=== PATIENT | female | born 1955 | race Caucasian/White ===

== ENCOUNTER 2016-02-14 12:31 | Observation (INO) | payer MEDICAID, OTHER ==
[~2016-02-14] VITALS: Ht 154.9 cm; Wt 42.1 kg
[2016-02-14] MEDS: methylPREDNISolone INJ 125 MG/2 ML VIAL (J2930) IV SCH ×2 (09:00→21:08)
[2016-02-14] MEDS ORDERED: IPRATROPIUM 0.5MG/ALBUTEROL 2.5MG INH SOL UD 3ML (DUONEB)(J7620) As Ordered ONE (14:05)
[2016-02-14 14:09] LABS: BASO # 0.1 K/mm3 (0.0-0.2); BASO % 0.6 % (0.0-1.0); EOS % 0.5 % (0.0-3.0); LARGE UNSTAINED CELL # 0.1 K/mm3 (0.0-0.4); LARGE UNSTAINED CELL % 1.3 % (0.0-4.0); LYMPH # 0.7 K/mm3 (1.5-4.5); LYMPH % 7.2 % (24.0-44.0); MEAN CORPUSCULAR HEMOGLOBIN 31.4 pg (27.0-33.0); MEAN CORPUSCULAR HGB CONC 34.2 g/dl (32.0-36.5); MEAN CORPUSCULAR VOLUME 91.8 fl (80.0-96.0); MONO # 0.4 K/mm3 (0.0-0.8); MONO % 4.3 % (0.0-5.0); NEUTROPHILS # 8.7 K/mm3 (1.8-7.7); NEUTROPHILS % 86.1 % (36.0-66.0); PLATELET COUNT, AUTOMATED 384 k/mm3 (150-450); RED CELL DISTRIBUTION WIDTH 12.3 % (11.5-14.5); WHITE BLOOD COUNT 10.1 K/mm3 (4.0-10.0)
[2016-02-14 14:27] LABS: ANION GAP 9 MEQ/L (8-16); BLOOD UREA NITROGEN 5 MG/DL (7-18); CALCIUM LEVEL 9.4 MG/DL (8.8-10.2); CARBON DIOXIDE LEVEL 28 MEQ/L (21-32); CHLORIDE LEVEL 95 MEQ/L (98-107); CREATININE FOR GFR 0.27 MG/DL (0.55-1.02); GLOMERULAR FILTRATION RATE > 60.0 (>45); GLUCOSE, FASTING 101 MG/DL (80-110); SODIUM LEVEL 132 MEQ/L (136-145)
[2016-02-14] MEDS ORDERED: predniSONE 20 MG TAB As Ordered ONE (14:32)
[2016-02-14] MEDS ORDERED: OMEP40CA2 PO (16:32)
[2016-02-14] MEDS ORDERED: MONT10TA2 PO (16:32)
[2016-02-14] MEDS ORDERED: CETI10TA PO (16:32)
[2016-02-14] MEDS ORDERED: ALBU83IN INH (16:32)
[2016-02-14] MEDS ORDERED: LISI10TA4 PO (16:32)
[2016-02-14] MEDS ORDERED: ALBU17IN INH (16:32)
[2016-02-14] MEDS ORDERED: FLUT1SPR2 (16:32)
[2016-02-14] MEDS ORDERED: VENL37.598 PO (16:32)
[2016-02-14] MEDS ORDERED: SYMB80INH INH (16:32)
[2016-02-14] MEDS ORDERED: IBUP800T23 PO (16:32)
[2016-02-14] MEDS ORDERED: ONDANSETRON 4MG/2ML VIAL (J2405) IV PRN (16:45)
[2016-02-14] MEDS ORDERED: IPRATROPIUM 0.5MG/ALBUTEROL 2.5MG INH SOL UD 3ML (DUONEB)(J7620) NEB PRN ×2 (16:45→17:00)
[2016-02-14] MEDS ORDERED: DRIS50002 PO (17:07)
--- NOTE | 2016-02-14 17:26 | REP ---
CHEST, TWO VIEWS: HISTORY: Shortness of breath. COMPARISON: 05/23/2012. The lungs are hyperinflated. An increase in interstitial markings is present in the lungs. The heart is normal in size. The pulmonary vasculature is normal in appearance. The bony structure is intact. IMPRESSION: COPD. Signed by Doug Reza MD 02/14/2016 05:42 P
--- NOTE | 2016-02-14 18:03 | HPE ---
DATE OF ADMISSION: 02/14/2016 Time patient was seen was at 1630 hours PRIMARY CARE PROVIDER: Barbara Echeverria NP CHIEF COMPLAINT: Shortness of breath and cough. HISTORY OF PRESENT ILLNESS: 60-year-old female with a past medical history of hepatitis C, treated per patient, chronic obstructive pulmonary disease (COPD), tobacco abuse, hypertension, presented with shortness of breath and chills and also coughing that started about 3 to 4 weeks ago. Per patient, it has been getting worse. Over the past few days, she is having problem moving around and feeling tired. She also has a productive cough, which was grayish in color. She also admits to some chest pressure. Otherwise, she also smokes for the past 50 years, half of a pack per day. She denies any sick contacts or any recent traveling. Denies measuring any fever; however, she does have a subjective fever and feeling hot. ALLERGIES: She is allergic to BACTRIM, which gives her nausea, vomiting, and rash. HOME MEDICATIONS: Including: - albuterol 2.5 mg one inhalation every four hours as needed - Ventolin two puff inhalation every four hours as needed - Symbicort 8/4.5 mcg two puff inhalation twice a day - cetirizine 10 mg one tablet by mouth at night - fluticasone spray in each naris twice a day - ibuprofen 800 mg one tablet by mouth every 8 hours - lisinopril 10 mg one tablet by mouth at night - Montelukast 10 mg one tablet by mouth daily - omeprazole 40 mg one tablet by mouth daily - venlafaxine 37.5 mg one tablet by mouth daily - vitamin D 50,000 units one by mouth weekly PAST MEDICAL HISTORY: Includes: 1. History of hepatitis C. 2. Chronic obstructive pulmonary disease (COPD). 3. Hypertension. 4. Tobacco abuse. 5. Alcohol abuse. PAST SURGICAL HISTORY: Includes: 1. Tonsillectomy. 2. section. SOCIAL HISTORY: The patient lives at home with a friend in an apartment. Admits to smoking at least 50 years for a half pack per day. Admits to drinking about two to three beers a day. Denies any recreational drug use. FAMILY HISTORY: Admits to diabetes. REVIEW OF SYSTEMS: GENERAL: Denies any recent traveling, sick contacts, or any objective fever. Does admit to subjective fever. HEENT: Denies any change with vision, smell, hearing or taste. Denies any trouble swallowing. Admits to a sore throat. Admits to cough and sputum production. CARDIOVASCULAR: Admits to chest pressure, however, no chest pain. No shoulder ache. No trouble breathing associated with chest pain. PULMONARY: The patient does have COPD and shortness of breath. GASTROINTESTINAL: The patient denies any abdominal pain, nausea, vomiting, diarrhea, constipation or any problem with urination. Denies any blood in the stool. GENITOURINARY: Denies any dysuria. MUSCULOSKELETAL: Admits to osteoarthritis. ENDOCRINE: Denies any diabetes. Denies any heat or cold intolerance. HEMATOLOGY/ONCOLOGY: Denies any easy bruising, bleeding anywhere. PSYCHIATRIC: Admits to anxiety. NEUROLOGIC: Denies any weakness on any side of the body. Denies any change in sensation besides the congestion. PHYSICAL EXAMINATION: VITAL SIGNS: Temperature was 98.8, blood pressure 119/72, pulse 104, respirations 18, oxygen saturation 90% on room air. At the time of interview, the patient was saturating at 88% on room air. Weight is 75 kg. Height is 154 cm. GENERAL: The patient is a thin looking, elderly female who was alert, awake, and oriented times three. Does not appear to be in distress. Lying comfortably in bed with head elevated at 45 degree angle. HEENT: Normocephalic, atraumatic. Extraocular muscles intact. Mucosa is moist. Neck is supple. No neck lymphadenopathy. CARDIOVASCULAR: Regular rate and rhythm. S1, S2. No rubs or gallops. LUNGS: Diffuse wheezing and rhonchi bilaterally. ABDOMEN: Positive bowel sounds. Soft, nontender. There are no peritoneal signs. No ecchymoses. EXTREMITIES: No edema, clubbing or cyanosis. SKIN: Warm and dry. NEUROLOGIC: Cranial nerves II through XII intact. No focal neurological deficits. LABORATORY DATA: WBC 10.1, hemoglobin 14.5, hematocrit 42.4 with a platelet count of 384, MCV of 91.8. Sodium 132, potassium 4, chloride 95, bicarbonate 28, BUN 5, creatinine 0.27, GFR greater than 60, fasting glucose 101, calcium 9.4, troponin less than 0.02. Group A Streptococcus screening is pending. The patient had a chest x-ray in the emergency room that shows COPD, official result is pending. ASSESSMENT AND PLAN: 60-year-old female with past medical history of hypertension, history of hepatitis C, chronic obstructive pulmonary disease (COPD), bronchitis, tobacco abuse who presented with 1. Shortness of breath, hypoxia, likely secondary to bronchitis and COPD exacerbation. The patient also has a mild leukocytosis, WBC 10.1. We will continue the patient on Rocephin and azithromycin. We will place the patient on DuoNeb treatment and intravenous steroids. We will continue to monitor the patient and keep the patient's oxygen saturation between 88 and 92%. 2. Bed bug infestation. The patient stated that she does have a bed bug at home. Last seen was one week ago; however, it has been uncontrolled, per patient. We will put the patient on precautions. 3. Tachycardic with heart rate of 106, likely secondary to exacerbation from COPD. We will continue to monitor. We will obtain EKG. 4. History of hepatitis C, stable. 5. History of hypertension. Continue home medications with Lisinopril and we will hold the patient's blood pressure medication once the systolic blood pressure is less than 120. 6. Tobacco abuse. We will place the patient on nicotine patch. 7. Deep vein thrombosis (DVT) prophylaxis. We will place the patient on Lovenox subcutaneously. DISPOSITION: The patient does seem to have bronchitis and COPD exacerbation. We will place the patient on azithromycin and Rocephin. Continue to monitor the patient and possibly discharge the patient in the next 2 to 3 days. The patient has been discussed with attending doctor, Dr. Keith. My preceptor for this patient encounter was Dr. Keith. The preceptor was physically present in the building during the encounter and was fully available. As needed, all aspects of the patient interview, examination, medical decision making process, and medical care plan development were reviewed and approved by the preceptor. The preceptor is aware and concurs with the plan as stated in the body of this note and will attest to such by his/her cosignature. Attending Note: I have independently examined this patient and all aspects of the exam and treatment decisions have been discussed with the resident. A member of the hospitalist staff will continue to follow this patient. [place]
--- NOTE | 2016-02-14 18:35 | EDDOCDS ---
Nurse's Notes [facility] Name: Christi Ziegler Age: 60 yrs Sex: Female : 1955 Arrival Date: 02/14/2016 Time: 12:31 Bed 5 Private MD: Barbara Echeverria L. Diagnosis: Chronic obstructive pulmonary disease with (acute) exacerbation;Acute respiratory failure with hypoxia;Acute upper respiratory infection, unspecified Presentation: 02/13 12:37 Presenting complaint: Patient states: she has had sinus congestion, pressure and pain kcs for a few weeks and now it is going into her chest. Adult Sepsis Screening: The patient does not have new or worsening altered mentation. Patient has a respiratory rate of greater than or equal to 22 (1 point). Systolic blood pressure is greater than 100. Patient has a qSOFA score of 0- Negative Sepsis Screen. Suicide/Homicide risk assessment- the patient denies having any suicidal and/or homicidal ideations and does not present with any other emotional, behavioral or mental health complaints. Status: Patient is not a lead customer service representative or dependent. Transition of care: patient was not received from another setting of care. 12:37 Acuity: ELIZABETH Level 3 kcs 12:37 Method Of Arrival: Walkin/Carried/Asstd kcs Triage Assessment: 12:41 General: Appears comfortable, slender, well developed, well nourished, Behavior is kcs cooperative, pleasant. Pain: Location: head Pain currently is 7 out of 10 on a pain scale. HIV screening NA for this visit Offered previously. Neurological: Level of Consciousness is awake, alert. Respiratory: Airway is patent Respiratory effort is labored, Respiratory pattern is regular, symmetrical. Derm: Skin is intact, is healthy with good turgor, Skin is dry, Skin is normal. Historical: - Allergies: BACITRACIN; funny five day antibiotic; - Home Meds: 1. lisinopril 10 mg Oral tab 1 tab once daily 2. montelukast 10 mg oral tab 1 tab once daily 3. Symbicort inhalation 2 times per day 4. Albuterol Inhl 3 mL every 4 hours 5. Albuterol Inhl 6. albuterol sulfate 90 mcg/actuation Inhl aepb 2 puffs every 4 hours 7. Zyrtec 10 mg Oral tab 1 tab once daily - PMHx: COPD; Hypertension; - PSHx: Tonsillectomy; left ear surgery; - Social history: Smoking status: Patient uses tobacco products, light tobacco smoker. No barriers to communication noted, The patient speaks fluent Chadian. - Family history: No immediate family members are acutely ill. - : The pt / caregiver states he / she is not on anticoagulants. Home medication list is obtained from the patient, [employer] import data. - Exposure Risk Screening:: None identified. Screenin:33 Screening information is obtained from the patient. Fall risk: No risks identified. mb9 Assistance ADL's: requires no assistance with activities of daily living. Abuse/DV Screen: The patient / caregiver reports he/she is: not in a situation that causes fear, pain or injury. Nutritional screening: No deficits noted. Advance Directives: There is no active DNR order. home support is adequate. Assessment: 15:33 General: Appears in no apparent distress, Behavior is appropriate for age, cooperative. mb9 Neurological: Level of Consciousness is awake, alert, Oriented to person, place, time, Reports dizziness. EENT: Reports nasal congestion. Respiratory: Airway is patent Respiratory effort is even, Breath sounds with wheezes expiratory in left posterior lower lobe, right posterior middle lobe and right posterior lower lobe. 16:40 General: Appears in no apparent distress, Behavior is appropriate for age, cooperative. js13 General: Patient states she was spraying for bed bugs at home.. Neurological: Level of Consciousness is awake, alert. Respiratory: Airway is patent Respiratory effort is even, unlabored, Breath sounds with wheezes. Derm: Skin is pink, warm & dry. Vital Signs: 12:33 BP 135 / 87; Pulse 106; Resp 18 S; Temp 95.8(T); Pulse Ox 94% on R/A; Weight 45.36 kg gr2 (R); Height 5 ft. 1 in. (154.94 cm) (R); Pain 4/10; 15:57 BP 119 / 72; Pulse 104; Resp 18; Temp 98.8(TE); Pulse Ox 90% on R/A; Pain 7/10; ar3 15:59 ar3 15:59 Pulse Ox 88% on R/A; ar3 18:03 BP 138 / 90 (auto/); js13 18:03 Pulse 102 MON; Resp 18; Pulse Ox 94% on 3 lpm NC; js13 18:18 BP 134 / 85 (auto/); js13 18:18 Pulse 108 MON; Resp 20; Temp 98.7(O); Pulse Ox 94% on 3 lpm NC; Pain 0/10; js13 12:33 Body Mass Index 18.89 (45.36 kg, 154.94 cm) gr2 15:59 WALKED PATIENT. PATIENT RESTING STARTED AT 86%. WHILE WALKED PATIENT MAINTAINED 88% ar3 Vitals: 12:33 Log In Time: February 14, 2016 at 12:33. gr2 14:22 Strep Screen is obtained and tested: Negative, a GATSNEG culture is ordered in [facility] mb9 and sent. ED Course: 12:33 Patient visited by Lovely Green. gr2 12:33 Barbara Echeverria is Private Physician. gr2 12:33 Patient moved to Waiting gr2 12:35 Patient visited by Lovely Green. gr2 12:35 Patient moved to Pre RCE gr2 12:39 Triage Initiated kcs 13:20 Patient moved to Triage 1 ar3 13:22 Brady Gomez PA-C is PHCP. ar2 13:22 Joan Solomon MD is Attending Physician. ar2 13:22 Patient visited by Brady Gomez PA-C. ar2 13:54 EKG done. (by ED staff). Reviewed by Brady Gomez PA-C. ar3 13:56 Patient visited by Maryana Maradiaga PCA. ar3 14:00 MED Profile Sent. ar3 14:00 CBC with Diff Sent. ar3 14:01 Patient moved to PR mb9 14:20 GATS (NEGATIVE STREP SCREEN) Sent. ar3 15:32 Patient visited by Anselmo Zamora,ROSALES. mb9 15:33 The patient / caregiver is instructed regarding the plan of care and ED course. mb9 15:51 Barbara Echeverria is Referral Physician. ar2 15:57 Patient visited by Maryana Maradiaga PCA. ar3 16:01 Patient visited by Maryana Maradiaga PCA. ar3 16:20 Cecy Bazzi,ROSALES is Primary Nurse. kpj 16:20 Patient moved to 7 kpj 16:21 Patient moved to PR2 / 26 ar2 16:22 Brady Keith DO is Hospitalizing Provider. ar2 16:23 Patient visited by Maryana Maradiaga PCA. ar3 16:27 Patient moved to 5 ar3 16:32 Inserted saline lock: 20 gauge in right forearm and blood collected. The patient mb9 tolerated the procedure well. 17:49 [facility] [place] was scanned into [employer] and attached to record. gjb 18:10 Chest, 2 View (pa\E\lat) Returned. EDMS 18:20 No procedures done that require assistance. js13 Administered Medications: 14:05 Drug: Albuterol-Ipratropium 1 neb [ipratropium-albuterol 0.5 mg-3 mg(2.5 mg base)/3 mL sd7 nebulization soln (1 neb)] Route: Nebulizer; 14:16 Follow up: Response: Nebulizer completed sd7 14:23 Drug: Albuterol-Ipratropium 1 neb [ipratropium-albuterol 0.5 mg-3 mg(2.5 mg base)/3 mL sd7 nebulization soln (1 neb)] Route: Nebulizer; 14:38 Follow up: Response: Nebulizer completed sd7 14:44 Drug: predniSONE 60 mg [prednisone 20 mg tablet (3 tabs)] Route: PO; mb9 14:44 Drug: Albuterol-Ipratropium 1 neb [ipratropium-albuterol 0.5 mg-3 mg(2.5 mg base)/3 mL sd7 nebulization soln (1 neb)] Route: Nebulizer; 14:50 Follow up: Response: Nebulizer completed sd7 RT: 14:05 Initial Med Neb Given as ordered Patient was instructed and evaluated on procedure sd7 Patient tolerated procedure well without adverse effect. Respiratory: Breath sounds with wheezes bilaterally. at expiration at inspiration. 14:23 Subsequent Med Neb Given as ordered Patient tolerated procedure well without adverse sd7 effect. Respiratory: Breath sounds with wheezes bilaterally. at expiration at inspiration. 14:44 Subsequent Med Neb Given as ordered Patient tolerated procedure well without adverse sd7 effect. Respiratory: Breath sounds with wheezes bilaterally. at expiration at inspiration. Order Results: Lab Order: CBC with Diff; SPEC'M 02/14/16 14:00 Test: WHITE BLOOD COUNT; Value: 10.1; Range: 4.0-10.0; Abnormal: Above high normal; Units: K/mm3; Status: F Test: RED BLOOD COUNT; Value: 4.62; Range: 4.00-5.40; Units: M/mm3; Status: F Test: HEMOGLOBIN; Value: 14.5; Range: 12.0-16.0; Units: g/dl; Status: F Test: HEMATOCRIT; Value: 42.4; Range: 36.0-47.0; Units: %; Status: F Test: MEAN CORPUSCULAR VOLUME; Value: 91.8; Range: 80.0-96.0; Units: fl; Status: F Test: MEAN CORPUSCULAR HEMOGLOBIN; Value: 31.4; Range: 27.0-33.0; Units: pg; Status: F Test: MEAN CORPUSCULAR HGB CONC; Value: 34.2; Range: 32.0-36.5; Units: g/dl; Status: F Test: RED CELL DISTRIBUTION WIDTH; Value: 12.3; Range: 11.5-14.5; Units: %; Status: F Test: PLATELET COUNT, AUTOMATED; Value: 384; Range: 150-450; Units: k/mm3; Status: F Test: NEUTROPHILS %; Value: 86.1; Range: 36.0-66.0; Abnormal: Above high normal; Units: %; Status: F Test: LYMPH %; Value: 7.2; Range: 24.0-44.0; Abnormal: Below low normal; Units: %; Status: F Test: MONO %; Value: 4.3; Range: 0.0-5.0; Units: %; Status: F Test: EOS %; Value: 0.5; Range: 0.0-3.0; Units: %; Status: F Test: BASO %; Value: 0.6; Range: 0.0-1.0; Units: %; Status: F Test: LARGE UNSTAINED CELL %; Value: 1.3; Range: 0.0-4.0; Units: %; Status: F Test: NEUTROPHILS #; Value: 8.7; Range: 1.8-7.7; Abnormal: Above high normal; Units: K/mm3; Status: F Test: LYMPH #; Value: 0.7; Range: 1.5-4.5; Abnormal: Below low normal; Units: K/mm3; Status: F Test: MONO #; Value: 0.4; Range: 0.0-0.8; Units: K/mm3; Status: F Test: EOS #; Value: 0.0; Range: 0.0-0.50; Units: K/mm3; Status: F Test: BASO #; Value: 0.1; Range: 0.0-0.2; Units: K/mm3; Status: F Test: LARGE UNSTAINED CELL #; Value: 0.1; Range: 0.0-0.4; Units: K/mm3; Status: F Lab Order: MED Profile; SPEC'M 02/14/16 14:00 Test: GLUCOSE, FASTING; Value: 101; Range: 80-110; Units: MG/DL; Status: F Test: BLOOD UREA NITROGEN; Value: 5; Range: 7-18; Abnormal: Below low normal; Units: MG/DL; Status: F Test: CREATININE FOR GFR; Value: 0.27; Range: 0.55-1.02; Abnormal: Below low normal; Units: MG/DL; Status: F Test: GLOMERULAR FILTRATION RATE; Value: > 60.0; Range: >45; Status: F Test: SODIUM LEVEL; Value: 132; Range: 136-145; Abnormal: Below low normal; Units: MEQ/L; Status: F Test: POTASSIUM SERUM; Value: 4.0; Range: 3.5-5.1; Units: MEQ/L; Status: F Test: CHLORIDE LEVEL; Value: 95; Range: 98-107; Abnormal: Below low normal; Units: MEQ/L; Status: F Test: CARBON DIOXIDE LEVEL; Value: 28; Range: 21-32; Units: MEQ/L; Status: F Test: ANION GAP; Value: 9; Range: 8-16; Units: MEQ/L; Status: F Test: CALCIUM LEVEL; Value: 9.4; Range: 8.8-10.2; Units: MG/DL; Status: F Test Note: ; Units are mL/min/1.73 m2 Chronic Kidney Disease Staging per NKF: Stage I & II GFR >=60 Normal to Mildly Decreased Stage III GFR 30-59 Moderately Decreased Stage IV GFR 15-29 Severely Decreased Stage V GFR <15 Very Little GFR Left ESRD GFR <15 on DATA CLERK Lab Order: TROPONIN; SPEC'M 02/14/16 14:00 Test: TROPONIN I; Value: < 0.02; Range: < 0.10; Units: NG/ML; Status: F Test Note: ; Troponin I Reference Interval for [facility] LOCI: 99th Percentile= 0.00-0.045 ng/ml Risk Stratification: <= 0.10 ng/ml Decreased Risk for Adverse Clinical Events. 0.10-1.50 ng/ml Increased Risk for Adverse Clinical Events. Evaluation of additional criterion and/or repeat testing in 2-6 hours is suggested to rule out myocardial damage. >= 1.50 ng/ml Indicative of Myocardial Injury. Radiology Order: Chest, 2 View (pa\E\lat) Test: Chest, 2 View (pa\E\lat) REASON FOR EXAMINATION: cough, sob; CHEST, TWO VIEWS:; ; HISTORY: Shortness of breath.; ; COMPARISON: 05/23/2012.; ; The lungs are hyperinflated. An increase in interstitial markings is present in; the lungs. The heart is normal in size. The pulmonary vasculature is normal in; appearance. The bony structure is intact.; ; IMPRESSION:; ; COPD.; ; ; Signed by; Doug Reza MD 02/14/2016 05:42 P; Outcome: 15:51 Discharge ordered by Provider. ar2 16:22 Decision to Hospitalize by Provider. ar2 18:22 Discharge Assessment: Patient awake, alert and oriented x 3. No cognitive and/or js13 functional deficits noted. Patient verbalized understanding of disposition instructions. patient administered narcotics - no. The following High Risk Discharge criteria are identified: None. Admitted to Med/Surg accompanied by tech, via stretcher, with oxygen, with chart. Condition: stable. No special radiology studies were completed. Admission hand-off: Report Faxed. Property :Personal belongings accompany Pt. 18:34 Patient left the ED. [facility] Signatures: Dispatcher [employer] Cheyenne Kennedy RN RN Malika Baeza RN RN Brady Ramesh PA-C PA-Vel ar2 Maryana Maradiaga PCA BUILDING CONSTRUCTION PROFESSOR ar3 Cecy Bazzi RN RN js13 Lovely Green gr2 Anita Cain,RT RT sd7 Anselmo Zamora,RN RN mb9 Jayleen Schaeferb Corrections: (The following items were deleted from the chart) 15:24 14:25 TROPONIN+LAB sent. ar3 EDMS MTDD
--- NOTE | 2016-02-14 18:35 | EDDOCDS ---
Physician Documentation [facility] Name: Christi Ziegler Age: 60 yrs Sex: Female : 1955 Arrival Date: 02/14/2016 Time: 12:31 Bed 5 Private MD: Barbara Echeverria L. Disposition: 02/14/16 16:22 Hospitalization ordered by Brady Keith for Inpatient Admission. Preliminary diagnosis are Chronic obstructive pulmonary disease with (acute) exacerbation, Acute respiratory failure with hypoxia, Acute upper respiratory infection, unspecified. - Bed requested for 4 [place]. - Status is Inpatient Admission. [facility] - Condition is Stable. - Problem is new. - Symptoms are unchanged. Historical: - Allergies: BACITRACIN; funny five day antibiotic; - Home Meds: 1. lisinopril 10 mg Oral tab 1 tab once daily 2. montelukast 10 mg oral tab 1 tab once daily 3. Symbicort inhalation 2 times per day 4. Albuterol Inhl 3 mL every 4 hours 5. Albuterol Inhl 6. albuterol sulfate 90 mcg/actuation Inhl aepb 2 puffs every 4 hours 7. Zyrtec 10 mg Oral tab 1 tab once daily - PMHx: COPD; Hypertension; - PSHx: Tonsillectomy; left ear surgery; - Social history: Smoking status: Patient uses tobacco products, light tobacco smoker. No barriers to communication noted, The patient speaks fluent Divehi. - Family history: No immediate family members are acutely ill. - : The pt / caregiver states he / she is not on anticoagulants. Home medication list is obtained from the patient, [employer] import data. - Exposure Risk Screening:: None identified. Vital Signs: 02/13 12:33 BP 135 / 87; Pulse 106; Resp 18 S; Temp 95.8(T); Pulse Ox 94% on R/A; Weight 45.36 kg / gr2 100 lbs (R); Height 5 ft. 1 in. (154.94 cm) (R); Pain 4/10; 15:57 BP 119 / 72; Pulse 104; Resp 18; Temp 98.8(TE); Pulse Ox 90% on R/A; Pain 7/10; ar3 15:59 ar3 15:59 Pulse Ox 88% on R/A; ar3 18:03 BP 138 / 90 (auto/); js13 18:03 Pulse 102 MON; Resp 18; Pulse Ox 94% on 3 lpm NC; js13 18:18 BP 134 / 85 (auto/); js13 18:18 Pulse 108 MON; Resp 20; Temp 98.7(O); Pulse Ox 94% on 3 lpm NC; Pain 0/10; js13 12:33 Body Mass Index 18.89 (45.36 kg, 154.94 cm) gr2 15:59 WALKED PATIENT. PATIENT RESTING STARTED AT 86%. WHILE WALKED PATIENT MAINTAINED 88% ar3 MDM: 13:39 predniSONE 60 mg PO once; administer with food or milk ordered. ar2 13:39 Albuterol-Ipratropium 1 neb Nebulizer every 20 minutes x3 ordered. ar2 13:39 Chest, 2 View (pa\E\lat) Ordered. EDMS 13:39 CBC with Diff Ordered. EDMS 13:39 MED Profile Ordered. EDMS 13:40 ECG WITH READING ER PHYS+CARDIAG ordered. EDMS 13:42 Strep Screen, Nursing ordered. ar2 14:14 GATS (NEGATIVE STREP SCREEN) Ordered. EDMS 14:22 CBC with Diff Reviewed. ar2 15:19 MED Profile Reviewed. ar2 15:50 MED Profile Reviewed. ar2 15:50 TROPONIN Reviewed. ar2 16:05 Undress patient ordered. ar2 16:24 BED REQUEST+ADM ordered. EDMS 16:48 Admission / Observation Status ordered. EDMS 16:49 REGULAR DIET ordered. EDMS 17:09 CARDIAC MARKER PANEL Ordered. EDMS 17:19 ELECTROCARDIOGRAM ADULT ordered. EDMS 17:19 SPUTUM CULTURE AND GRAM STAIN Ordered. EDMS 17:49 Financial registration complete. gjkirk 17:49 [facility] [place] was scanned into [employer] and attached to record. gjb Administered Medications: 14:05 Drug: Albuterol-Ipratropium 1 neb [ipratropium-albuterol 0.5 mg-3 mg(2.5 mg base)/3 mL sd7 nebulization soln (1 neb)] Route: Nebulizer; 14:16 Follow up: Response: Nebulizer completed sd7 14:23 Drug: Albuterol-Ipratropium 1 neb [ipratropium-albuterol 0.5 mg-3 mg(2.5 mg base)/3 mL sd7 nebulization soln (1 neb)] Route: Nebulizer; 14:38 Follow up: Response: Nebulizer completed 14:44 Drug: predniSONE 60 mg [prednisone 20 mg tablet (3 tabs)] Route: PO; mb9 14:44 Drug: Albuterol-Ipratropium 1 neb [ipratropium-albuterol 0.5 mg-3 mg(2.5 mg base)/3 mL sd7 nebulization soln (1 neb)] Route: Nebulizer; 14:50 Follow up: Response: Nebulizer completed Signatures: Dispatcher [employer] EDMS Cheyenne Scott RN RN kcs Malika Joya RN RN Brady Quintanilla PA-C PAArash ar2 Anselmo ZamoraRN ROSALES mb9 Denise Gibbons RN Jayleen Egan mem, Samantha RT The chart was reviewed and I authenticate all verbal orders and agree with the evaluation and treatment provided.Corrections: (The following items were deleted from the chart) 15:24 14:23 TROPONIN+LAB ordered. EDMS EDMS 17:20 16:05 IV Saline Lock ordered. ar2 js13 Attachments: 17:49 [facility] [place] gj MTDD
[2016-02-14 18:50] VITALS: BP 120/80
[2016-02-14] MEDS: AZITHROMYCIN 500 MG, VIAL MATE ADAPTER 1 EACH in D5W 250 ML IV SCH (19:42)
[2016-02-14] MEDS: NICOTINE 14 MG/24 HR TRANSDERMAL TD SCH (19:43)
[2016-02-14] MEDS ORDERED: IPRATROPIUM 0.5MG/ALBUTEROL 2.5MG INH SOL UD 3ML (DUONEB)(J7620) NEB SCH (20:00)
[2016-02-14] MEDS: FLUTICASONE PROP 0.05% NASAL SPRAY 16 GM (FLONASE) SCH (21:00)
[2016-02-14] MEDS: cefTRIAXone SOD 1 GM in D5W MINI-BAG PLUS 50 ML IV SCH (21:01)
[2016-02-14] MEDS: LISINOPRIL 10 MG TAB PO SCH (21:07)
[2016-02-14] MEDS: DOCUSATE SODIUM 100 MG CAP PO SCH (21:08)
[2016-02-14] MEDS: CETIRIZINE (ZyrTEC) 10 MG TAB PO SCH (21:08)
[2016-02-14 22:00] VITALS: BP 108/68
[2016-02-14] MEDS: ACETAMINOPHEN TAB 650MG DOSE (2X325MG) PO PRN (22:17)
[2016-02-14] MEDS: SYMBICORT 80/4.5MCG INHALER 6GM INH SCH (22:43)
[2016-02-14] MEDS: IPRATROPIUM 0.5MG/ALBUTEROL 2.5MG INH SOL UD 3ML (DUONEB)(J7620) NEB SCH (23:51)
[2016-02-15] MEDS: HEPARIN SOD (PORCINE) 5000 UNITS/ML VIAL SQ SCH ×3 (05:15→21:06)
[2016-02-15] MEDS: ACETAMINOPHEN TAB 650MG DOSE (2X325MG) PO PRN ×2 (05:17→21:16)
[2016-02-15 06:00] VITALS: BP 98/68
[2016-02-15 06:17] LABS: MEAN CORPUSCULAR HEMOGLOBIN 31.2 pg (27.0-33.0); MEAN CORPUSCULAR VOLUME 94.5 fl (80.0-96.0); RED CELL DISTRIBUTION WIDTH 13.1 % (11.5-14.5); WHITE BLOOD COUNT 8.4 K/mm3 (4.0-10.0)
[2016-02-15 06:33] LABS: ANION GAP 10 MEQ/L (8-16); BLOOD UREA NITROGEN 7 MG/DL (7-18); CALCIUM LEVEL 9.7 MG/DL (8.8-10.2); CARBON DIOXIDE LEVEL 25 MEQ/L (21-32); CHLORIDE LEVEL 96 MEQ/L (98-107); CREATININE FOR GFR 0.33 MG/DL (0.55-1.02); GLOMERULAR FILTRATION RATE > 60.0 (>45); GLUCOSE, FASTING 164 MG/DL (80-110); POTASSIUM SERUM 4.2 MEQ/L (3.5-5.1); SODIUM LEVEL 131 MEQ/L (136-145)
[2016-02-15] MEDS: IPRATROPIUM 0.5MG/ALBUTEROL 2.5MG INH SOL UD 3ML (DUONEB)(J7620) NEB SCH ×3 (08:00→23:32)
[2016-02-15] MEDS: SYMBICORT 80/4.5MCG INHALER 6GM INH SCH ×2 (08:09→19:48)
[2016-02-15] MEDS: MONTELUKAST 10 MG TAB PO SCH (09:27)
[2016-02-15] MEDS: VENLAFAXINE **XR** 37.5 MG CAPSULE PO SCH (09:27)
[2016-02-15] MEDS: OMEPRAZOLE 20 MG CAP PO SCH (09:27)
[2016-02-15] MEDS: DOCUSATE SODIUM 100 MG CAP PO SCH ×2 (09:27→21:07)
[2016-02-15] MEDS: methylPREDNISolone INJ 125 MG/2 ML VIAL (J2930) IV SCH ×2 (09:27→21:06)
[2016-02-15] MEDS: FLUTICASONE PROP 0.05% NASAL SPRAY 16 GM (FLONASE) SCH ×2 (09:28→21:07)
[2016-02-15] MEDS: NICOTINE 14 MG/24 HR TRANSDERMAL TD SCH (09:28)
[2016-02-15 14:00] VITALS: BP 104/60
[2016-02-15] MEDS: AZITHROMYCIN 500 MG, VIAL MATE ADAPTER 1 EACH in D5W 250 ML IV SCH (18:40)
--- NOTE | 2016-02-15 19:41 | ECGEPIP ---
Stationary ECG Study [facility] - ED Test Date: 2016-02-14 Pat Name: YONY YANCEY Department: Room: - Gender: F Sap Bobj Developer: abdoul : 1955 Requested By: CHRISTIAN LÓPEZ PA-C. Order Number: [id number] Reading MD: Joan Solomon Measurements Intervals [place] Rate: 94 P: 88 MI: 120 QRS: 83 QRSD: 74 T: 83 QT: 359 QTc: 451 Interpretive Statements SINUS RHYTHM WITH OCCASIONAL VENTRICULAR PREMATURE COMPLEXES POSSIBLE LEFT ATRIAL ENLARGEMENT ANTEROSEPTAL MYOCARDIAL INFARCTION, OF INDETERMINATE AGE SIMIALR 12/23/14 Electronically Signed On 02-15-2016 19:41:30 EST by Joan Solomon
[2016-02-15] MEDS: cefTRIAXone SOD 1 GM in D5W MINI-BAG PLUS 50 ML IV SCH (20:03)
[2016-02-15 20:48] VITALS: BP 100/63
[2016-02-15 20:52] VITALS: BP 100/63
[2016-02-15] MEDS: LISINOPRIL 10 MG TAB PO SCH (20:52)
[2016-02-15] MEDS: CETIRIZINE (ZyrTEC) 10 MG TAB PO SCH (21:07)
--- NOTE | 2016-02-15 23:05 | IPNPDOC ---
Assessment/Plan Date Seen The patient was seen on 02/15/16. Subjective Review of Systems CC/HPI The patient is a 60-year-old female admitted with a reason for visit of Copd Exacerbation. Objective Vital Signs/I&O Vital Signs Date Time Temp Pulse Resp B/P Pulse Ox O2 Delivery O2 Flow Rate FiO2 02/15/16 20:52 100/63 02/15/16 20:48 95.3 100 18 93 Nasal Cannula 1.0 I&O- Last 24 Hours up to 6 AM 02/15/16 06:00 Intake Total 1185 ml Output Total 1000 ml Balance 185 ml Laboratory Data Labs 24H Laboratory Tests 2 02/15/16 06:00: Anion Gap 10, Blood Urea Nitrogen 7, Creatinine 0.33L, Sodium Level 131L, Potassium Level 4.2, Chloride Level 96L, Carbon Dioxide Level 25, Calcium Level 9.7, Glomerular Filtration Rate > 60.0 CBC/BMP Laboratory Tests 02/15/16 06:00 Calcium Level 9.7, Red Blood Count 4.67, Mean Corpuscular Volume 94.5, Mean Corpuscular Hemoglobin 31.2, Mean Corpuscular Hemoglobin Concent 33.0, Red Cell Distribution Width 13.1 Microbiology Microbiology 02/14/16 Gram Stain - Final, Resulted 02/14/16 Sputum Culture, Resulted Pending 02/14/16 Group A Streptococcus Screen (GRACIELA) - Final, Complete CRIS HICKS DO Feb 15, 2016 23:05
[2016-02-16] MEDS ORDERED: guaiFENesin SYRUP 200 MG/10 ML UDC PO ONE (01:45)
[2016-02-16] MEDS: HEPARIN SOD (PORCINE) 5000 UNITS/ML VIAL SQ SCH (05:08)
[2016-02-16 06:00] VITALS: BP 124/78
[2016-02-16 07:14] LABS: MEAN CORPUSCULAR HEMOGLOBIN 30.8 pg (27.0-33.0); MEAN CORPUSCULAR HGB CONC 33.5 g/dl (32.0-36.5); MEAN CORPUSCULAR VOLUME 92.1 fl (80.0-96.0); RED CELL DISTRIBUTION WIDTH 12.4 % (11.5-14.5); WHITE BLOOD COUNT 9.2 K/mm3 (4.0-10.0)
[2016-02-16 07:20] LABS: ANION GAP 8 MEQ/L (8-16); BLOOD UREA NITROGEN 4 MG/DL (7-18); CALCIUM LEVEL 9.1 MG/DL (8.8-10.2); CARBON DIOXIDE LEVEL 30 MEQ/L (21-32); CHLORIDE LEVEL 96 MEQ/L (98-107); CREATININE FOR GFR 0.32 MG/DL (0.55-1.02); GLOMERULAR FILTRATION RATE > 60.0 (>45); GLUCOSE, FASTING 145 MG/DL (80-110); POTASSIUM SERUM 3.9 MEQ/L (3.5-5.1); SODIUM LEVEL 134 MEQ/L (136-145)
[2016-02-16] MEDS: IPRATROPIUM 0.5MG/ALBUTEROL 2.5MG INH SOL UD 3ML (DUONEB)(J7620) NEB SCH (07:52)
[2016-02-16] MEDS: SYMBICORT 80/4.5MCG INHALER 6GM INH SCH (07:53)
[2016-02-16] MEDS: methylPREDNISolone INJ 125 MG/2 ML VIAL (J2930) IV SCH (08:37)
[2016-02-16] MEDS: DOCUSATE SODIUM 100 MG CAP PO SCH (08:37)
[2016-02-16] MEDS: MONTELUKAST 10 MG TAB PO SCH (08:38)
[2016-02-16] MEDS: OMEPRAZOLE 20 MG CAP PO SCH (08:38)
[2016-02-16] MEDS: NICOTINE 14 MG/24 HR TRANSDERMAL TD SCH (08:38)
[2016-02-16] MEDS: VENLAFAXINE **XR** 37.5 MG CAPSULE PO SCH (08:38)
[2016-02-16] MEDS: FLUTICASONE PROP 0.05% NASAL SPRAY 16 GM (FLONASE) SCH (08:39)
[2016-02-16] MEDS ORDERED: MEDR4PAK PO (12:19)
[2016-02-16] MEDS ORDERED: LEVA750T PO (12:20)
--- NOTE | 2016-02-16 19:36 | EDDOCDS ---
Physician Documentation [facility] Name: Christi Ziegler Age: 60 yrs Sex: Female : 1955 Arrival Date: 02/14/2016 Time: 12:31 Bed 5 Private MD: Barbara Echeverria L. Disposition: 02/14/16 16:22 Hospitalization ordered by Brady Keith for Inpatient Admission. Preliminary diagnosis are Chronic obstructive pulmonary disease with (acute) exacerbation, Acute respiratory failure with hypoxia, Acute upper respiratory infection, unspecified. - Bed requested for 4 [place]. - Status is Inpatient Admission. [facility] - Condition is Stable. - Problem is new. - Symptoms are unchanged. Historical: - Allergies: BACITRACIN; funny five day antibiotic; - Home Meds: 1. lisinopril 10 mg Oral tab 1 tab once daily 2. montelukast 10 mg oral tab 1 tab once daily 3. Symbicort inhalation 2 times per day 4. Albuterol Inhl 3 mL every 4 hours 5. Albuterol Inhl 6. albuterol sulfate 90 mcg/actuation Inhl aepb 2 puffs every 4 hours 7. Zyrtec 10 mg Oral tab 1 tab once daily - PMHx: COPD; Hypertension; - PSHx: Tonsillectomy; left ear surgery; - Social history: Smoking status: Patient uses tobacco products, light tobacco smoker. No barriers to communication noted, The patient speaks fluent Romanian. - Family history: No immediate family members are acutely ill. - : The pt / caregiver states he / she is not on anticoagulants. Home medication list is obtained from the patient, [employer] import data. - Exposure Risk Screening:: None identified. Vital Signs: 02/13 12:33 BP 135 / 87; Pulse 106; Resp 18 S; Temp 95.8(T); Pulse Ox 94% on R/A; Weight 45.36 kg / gr2 100 lbs (R); Height 5 ft. 1 in. (154.94 cm) (R); Pain 4/10; 15:57 BP 119 / 72; Pulse 104; Resp 18; Temp 98.8(TE); Pulse Ox 90% on R/A; Pain 7/10; ar3 15:59 ar3 15:59 Pulse Ox 88% on R/A; ar3 18:03 BP 138 / 90 (auto/); js13 18:03 Pulse 102 MON; Resp 18; Pulse Ox 94% on 3 lpm NC; js13 18:18 BP 134 / 85 (auto/); js13 18:18 Pulse 108 MON; Resp 20; Temp 98.7(O); Pulse Ox 94% on 3 lpm NC; Pain 0/10; js13 12:33 Body Mass Index 18.89 (45.36 kg, 154.94 cm) gr2 15:59 WALKED PATIENT. PATIENT RESTING STARTED AT 86%. WHILE WALKED PATIENT MAINTAINED 88% ar3 MDM: 13:39 predniSONE 60 mg PO once; administer with food or milk ordered. ar2 13:39 Albuterol-Ipratropium 1 neb Nebulizer every 20 minutes x3 ordered. ar2 13:39 Chest, 2 View (pa\E\lat) Ordered. EDMS 13:39 CBC with Diff Ordered. EDMS 13:39 MED Profile Ordered. EDMS 13:40 ECG WITH READING ER PHYS+CARDIAG ordered. EDMS 13:42 Strep Screen, Nursing ordered. ar2 14:14 GATS (NEGATIVE STREP SCREEN) Ordered. EDMS 14:22 CBC with Diff Reviewed. ar2 15:19 MED Profile Reviewed. ar2 15:50 MED Profile Reviewed. ar2 15:50 TROPONIN Reviewed. ar2 16:05 Undress patient ordered. ar2 16:24 BED REQUEST+ADM ordered. EDMS 16:48 Admission / Observation Status ordered. EDMS 16:49 REGULAR DIET ordered. EDMS 17:09 CARDIAC MARKER PANEL Ordered. EDMS 17:19 ELECTROCARDIOGRAM ADULT ordered. EDMS 17:19 SPUTUM CULTURE AND GRAM STAIN Ordered. EDMS 17:49 Financial registration complete. gjb 17:49 [facility] Payment Agreement was scanned into [employer] and attached to record. gjb 02/14 09:45 T-Sheet-- Draft Copy was scanned into [employer] and attached to record. gb 09:46 ECG/EKG was scanned into [employer] and attached to record. gb Administered Medications: 02/13 14:05 Drug: Albuterol-Ipratropium 1 neb [ipratropium-albuterol 0.5 mg-3 mg(2.5 mg base)/3 mL sd7 nebulization soln (1 neb)] Route: Nebulizer; 14:16 Follow up: Response: Nebulizer completed 14:23 Drug: Albuterol-Ipratropium 1 neb [ipratropium-albuterol 0.5 mg-3 mg(2.5 mg base)/3 mL sd7 nebulization soln (1 neb)] Route: Nebulizer; 14:38 Follow up: Response: Nebulizer completed 14:44 Drug: predniSONE 60 mg [prednisone 20 mg tablet (3 tabs)] Route: PO; mb9 14:44 Drug: Albuterol-Ipratropium 1 neb [ipratropium-albuterol 0.5 mg-3 mg(2.5 mg base)/3 mL sd7 nebulization soln (1 neb)] Route: Nebulizer; 14:50 Follow up: Response: Nebulizer completed Signatures: Dispatcher [employer] EDCheyenne Ventura, RN RN [facility] Malika Joya RN RN Niyah Gandhi, Holger Reg Brady Conway, ADEOLA PAArash ar2 Anselmo Zamora RN RN mb9 McGovern, Mary RN Jayleen Egan mem, Samantha RT The chart was reviewed and I authenticate all verbal orders and agree with the evaluation and treatment provided.Corrections: (The following items were deleted from the chart) 15:24 14:23 TROPONIN+LAB ordered. EDMS EDMS 17:20 16:05 IV Saline Lock ordered. silviano js13 Attachments: 17:49 [facility] Payment Agreement gjb 02/14 09:45 T-Sheet-- Draft Copy gb 09:46 ECG/EKG Chart Complete MTDD
--- NOTE | 2016-02-16 19:36 | EDDOCDS ---
Physician Documentation [facility] Name: Christi Ziegler Age: 60 yrs Sex: Female : 1955 Arrival Date: 02/14/2016 Time: 12:31 Bed 5 Private MD: Barbara Echeverria L. Disposition: 02/14/16 16:22 Hospitalization ordered by Brady Keith for Inpatient Admission. Preliminary diagnosis are Chronic obstructive pulmonary disease with (acute) exacerbation, Acute respiratory failure with hypoxia, Acute upper respiratory infection, unspecified. - Bed requested for 4 [place]. - Status is Inpatient Admission. [facility] - Condition is Stable. - Problem is new. - Symptoms are unchanged. Historical: - Allergies: BACITRACIN; funny five day antibiotic; - Home Meds: 1. lisinopril 10 mg Oral tab 1 tab once daily 2. montelukast 10 mg oral tab 1 tab once daily 3. Symbicort inhalation 2 times per day 4. Albuterol Inhl 3 mL every 4 hours 5. Albuterol Inhl 6. albuterol sulfate 90 mcg/actuation Inhl aepb 2 puffs every 4 hours 7. Zyrtec 10 mg Oral tab 1 tab once daily - PMHx: COPD; Hypertension; - PSHx: Tonsillectomy; left ear surgery; - Social history: Smoking status: Patient uses tobacco products, light tobacco smoker. No barriers to communication noted, The patient speaks fluent Portuguese. - Family history: No immediate family members are acutely ill. - : The pt / caregiver states he / she is not on anticoagulants. Home medication list is obtained from the patient, [employer] import data. - Exposure Risk Screening:: None identified. Vital Signs: 02/13 12:33 BP 135 / 87; Pulse 106; Resp 18 S; Temp 95.8(T); Pulse Ox 94% on R/A; Weight 45.36 kg / gr2 100 lbs (R); Height 5 ft. 1 in. (154.94 cm) (R); Pain 4/10; 15:57 BP 119 / 72; Pulse 104; Resp 18; Temp 98.8(TE); Pulse Ox 90% on R/A; Pain 7/10; ar3 15:59 ar3 15:59 Pulse Ox 88% on R/A; ar3 18:03 BP 138 / 90 (auto/); js13 18:03 Pulse 102 MON; Resp 18; Pulse Ox 94% on 3 lpm NC; js13 18:18 BP 134 / 85 (auto/); js13 18:18 Pulse 108 MON; Resp 20; Temp 98.7(O); Pulse Ox 94% on 3 lpm NC; Pain 0/10; js13 12:33 Body Mass Index 18.89 (45.36 kg, 154.94 cm) gr2 15:59 WALKED PATIENT. PATIENT RESTING STARTED AT 86%. WHILE WALKED PATIENT MAINTAINED 88% ar3 MDM: 13:39 predniSONE 60 mg PO once; administer with food or milk ordered. ar2 13:39 Albuterol-Ipratropium 1 neb Nebulizer every 20 minutes x3 ordered. ar2 13:39 Chest, 2 View (pa\E\lat) Ordered. EDMS 13:39 CBC with Diff Ordered. EDMS 13:39 MED Profile Ordered. EDMS 13:40 ECG WITH READING ER PHYS+CARDIAG ordered. EDMS 13:42 Strep Screen, Nursing ordered. ar2 14:14 GATS (NEGATIVE STREP SCREEN) Ordered. EDMS 14:22 CBC with Diff Reviewed. ar2 15:19 MED Profile Reviewed. ar2 15:50 MED Profile Reviewed. ar2 15:50 TROPONIN Reviewed. ar2 16:05 Undress patient ordered. ar2 16:24 BED REQUEST+ADM ordered. EDMS 16:48 Admission / Observation Status ordered. EDMS 16:49 REGULAR DIET ordered. EDMS 17:09 CARDIAC MARKER PANEL Ordered. EDMS 17:19 ELECTROCARDIOGRAM ADULT ordered. EDMS 17:19 SPUTUM CULTURE AND GRAM STAIN Ordered. EDMS 17:49 Financial registration complete. gjb 17:49 [facility] Payment Agreement was scanned into [employer] and attached to record. gjb 02/14 09:45 T-Sheet-- Draft Copy was scanned into [employer] and attached to record. gb 09:46 ECG/EKG was scanned into [employer] and attached to record. gb Administered Medications: 02/13 14:05 Drug: Albuterol-Ipratropium 1 neb [ipratropium-albuterol 0.5 mg-3 mg(2.5 mg base)/3 mL sd7 nebulization soln (1 neb)] Route: Nebulizer; 14:16 Follow up: Response: Nebulizer completed 14:23 Drug: Albuterol-Ipratropium 1 neb [ipratropium-albuterol 0.5 mg-3 mg(2.5 mg base)/3 mL sd7 nebulization soln (1 neb)] Route: Nebulizer; 14:38 Follow up: Response: Nebulizer completed 14:44 Drug: predniSONE 60 mg [prednisone 20 mg tablet (3 tabs)] Route: PO; mb9 14:44 Drug: Albuterol-Ipratropium 1 neb [ipratropium-albuterol 0.5 mg-3 mg(2.5 mg base)/3 mL sd7 nebulization soln (1 neb)] Route: Nebulizer; 14:50 Follow up: Response: Nebulizer completed Signatures: Dispatcher [employer] EDCheyenne Ventura, RN RN [facility] Malika Joya RN RN Niyah Gandhi, Holger Reg Brady Conway, ADEOLA PAArash ar2 Anselmo Zamora RN RN mb9 McGovern, Mary RN Jayleen Egan mem, Samantha RT The chart was reviewed and I authenticate all verbal orders and agree with the evaluation and treatment provided.Corrections: (The following items were deleted from the chart) 15:24 14:23 TROPONIN+LAB ordered. EDMS EDMS 17:20 16:05 IV Saline Lock ordered. silviano js13 Attachments: 17:49 [facility] Payment Agreement gjb 02/14 09:45 T-Sheet-- Draft Copy gb 09:46 ECG/EKG Chart Complete MTDD
--- NOTE | 2016-02-16 19:36 | EDDOCDS ---
Nurse's Notes [facility] Name: Christi Ziegler Age: 60 yrs Sex: Female : 1955 Arrival Date: 02/14/2016 Time: 12:31 Bed 5 Private MD: Barbara Echeverria L. Diagnosis: Chronic obstructive pulmonary disease with (acute) exacerbation;Acute respiratory failure with hypoxia;Acute upper respiratory infection, unspecified Presentation: 02/13 12:37 Presenting complaint: Patient states: she has had sinus congestion, pressure and pain kcs for a few weeks and now it is going into her chest. Adult Sepsis Screening: The patient does not have new or worsening altered mentation. Patient has a respiratory rate of greater than or equal to 22 (1 point). Systolic blood pressure is greater than 100. Patient has a qSOFA score of 0- Negative Sepsis Screen. Suicide/Homicide risk assessment- the patient denies having any suicidal and/or homicidal ideations and does not present with any other emotional, behavioral or mental health complaints. Status: Patient is not a supervisor special services or dependent. Transition of care: patient was not received from another setting of care. 12:37 Acuity: ELIZABETH Level 3 kcs 12:37 Method Of Arrival: Walkin/Carried/Asstd kcs Triage Assessment: 12:41 General: Appears comfortable, slender, well developed, well nourished, Behavior is kcs cooperative, pleasant. Pain: Location: head Pain currently is 7 out of 10 on a pain scale. HIV screening NA for this visit Offered previously. Neurological: Level of Consciousness is awake, alert. Respiratory: Airway is patent Respiratory effort is labored, Respiratory pattern is regular, symmetrical. Derm: Skin is intact, is healthy with good turgor, Skin is dry, Skin is normal. Historical: - Allergies: BACITRACIN; funny five day antibiotic; - Home Meds: 1. lisinopril 10 mg Oral tab 1 tab once daily 2. montelukast 10 mg oral tab 1 tab once daily 3. Symbicort inhalation 2 times per day 4. Albuterol Inhl 3 mL every 4 hours 5. Albuterol Inhl 6. albuterol sulfate 90 mcg/actuation Inhl aepb 2 puffs every 4 hours 7. Zyrtec 10 mg Oral tab 1 tab once daily - PMHx: COPD; Hypertension; - PSHx: Tonsillectomy; left ear surgery; - Social history: Smoking status: Patient uses tobacco products, light tobacco smoker. No barriers to communication noted, The patient speaks fluent Argentine. - Family history: No immediate family members are acutely ill. - : The pt / caregiver states he / she is not on anticoagulants. Home medication list is obtained from the patient, [employer] import data. - Exposure Risk Screening:: None identified. Screenin:33 Screening information is obtained from the patient. Fall risk: No risks identified. mb9 Assistance ADL's: requires no assistance with activities of daily living. Abuse/DV Screen: The patient / caregiver reports he/she is: not in a situation that causes fear, pain or injury. Nutritional screening: No deficits noted. Advance Directives: There is no active DNR order. home support is adequate. Assessment: 15:33 General: Appears in no apparent distress, Behavior is appropriate for age, cooperative. mb9 Neurological: Level of Consciousness is awake, alert, Oriented to person, place, time, Reports dizziness. EENT: Reports nasal congestion. Respiratory: Airway is patent Respiratory effort is even, Breath sounds with wheezes expiratory in left posterior lower lobe, right posterior middle lobe and right posterior lower lobe. 16:40 General: Appears in no apparent distress, Behavior is appropriate for age, cooperative. js13 General: Patient states she was spraying for bed bugs at home.. Neurological: Level of Consciousness is awake, alert. Respiratory: Airway is patent Respiratory effort is even, unlabored, Breath sounds with wheezes. Derm: Skin is pink, warm & dry. Vital Signs: 12:33 BP 135 / 87; Pulse 106; Resp 18 S; Temp 95.8(T); Pulse Ox 94% on R/A; Weight 45.36 kg gr2 (R); Height 5 ft. 1 in. (154.94 cm) (R); Pain 4/10; 15:57 BP 119 / 72; Pulse 104; Resp 18; Temp 98.8(TE); Pulse Ox 90% on R/A; Pain 7/10; ar3 15:59 ar3 15:59 Pulse Ox 88% on R/A; ar3 18:03 BP 138 / 90 (auto/); js13 18:03 Pulse 102 MON; Resp 18; Pulse Ox 94% on 3 lpm NC; js13 18:18 BP 134 / 85 (auto/); js13 18:18 Pulse 108 MON; Resp 20; Temp 98.7(O); Pulse Ox 94% on 3 lpm NC; Pain 0/10; js13 12:33 Body Mass Index 18.89 (45.36 kg, 154.94 cm) gr2 15:59 WALKED PATIENT. PATIENT RESTING STARTED AT 86%. WHILE WALKED PATIENT MAINTAINED 88% ar3 Vitals: 12:33 Log In Time: February 14, 2016 at 12:33. gr2 14:22 Strep Screen is obtained and tested: Negative, a GATSNEG culture is ordered in [facility] mb9 and sent. ED Course: 12:33 Patient visited by Lovely Green. gr2 12:33 Barbara Echeverria is Private Physician. gr2 12:33 Patient moved to Waiting gr2 12:35 Patient visited by Lovely Green. gr2 12:35 Patient moved to Pre RCE gr2 12:39 Triage Initiated kcs 13:20 Patient moved to Triage 1 ar3 13:22 Brady Gomez PA-C is PHCP. ar2 13:22 Joan Solomon MD is Attending Physician. ar2 13:22 Patient visited by Brady Gomez PA-C. ar2 13:54 EKG done. (by ED staff). Reviewed by Brady Gomez PA-C. ar3 13:56 Patient visited by Maryana Maradiaga PCA. ar3 14:00 MED Profile Sent. ar3 14:00 CBC with Diff Sent. ar3 14:01 Patient moved to PR mb9 14:20 GATS (NEGATIVE STREP SCREEN) Sent. ar3 15:32 Patient visited by Anselmo Zamora,ROSALES. mb9 15:33 The patient / caregiver is instructed regarding the plan of care and ED course. mb9 15:51 Barbara Echeverria is Referral Physician. ar2 15:57 Patient visited by Maryana Maradiaga PCA. ar3 16:01 Patient visited by Maryana Maradiaga PCA. ar3 16:20 Cecy Bazzi,ROSALES is Primary Nurse. kpj 16:20 Patient moved to 7 kpj 16:21 Patient moved to ar2 16:22 Brady Keith DO is Hospitalizing Provider. ar2 16:23 Patient visited by Maryana Maradiaga PCA. ar3 16:27 Patient moved to 5 ar3 16:32 Inserted saline lock: 20 gauge in right forearm and blood collected. The patient mb9 tolerated the procedure well. 17:49 [facility] Payment Agreement was scanned into [employer] and attached to record. gjb 18:10 Chest, 2 View (pa\E\lat) Returned. EDMS 18:20 No procedures done that require assistance. js13 02/14 09:45 T-Sheet-- Draft Copy was scanned into [employer] and attached to record. gb 09:46 ECG/EKG was scanned into [employer] and attached to record. gb Administered Medications: 02/13 14:05 Drug: Albuterol-Ipratropium 1 neb [ipratropium-albuterol 0.5 mg-3 mg(2.5 mg base)/3 mL sd7 nebulization soln (1 neb)] Route: Nebulizer; 14:16 Follow up: Response: Nebulizer completed sd7 14:23 Drug: Albuterol-Ipratropium 1 neb [ipratropium-albuterol 0.5 mg-3 mg(2.5 mg base)/3 mL sd7 nebulization soln (1 neb)] Route: Nebulizer; 14:38 Follow up: Response: Nebulizer completed sd7 14:44 Drug: predniSONE 60 mg [prednisone 20 mg tablet (3 tabs)] Route: PO; mb9 14:44 Drug: Albuterol-Ipratropium 1 neb [ipratropium-albuterol 0.5 mg-3 mg(2.5 mg base)/3 mL sd7 nebulization soln (1 neb)] Route: Nebulizer; 14:50 Follow up: Response: Nebulizer completed sd7 RT: 14:05 Initial Med Neb Given as ordered Patient was instructed and evaluated on procedure sd7 Patient tolerated procedure well without adverse effect. Respiratory: Breath sounds with wheezes bilaterally. at expiration at inspiration. 14:23 Subsequent Med Neb Given as ordered Patient tolerated procedure well without adverse sd7 effect. Respiratory: Breath sounds with wheezes bilaterally. at expiration at inspiration. 14:44 Subsequent Med Neb Given as ordered Patient tolerated procedure well without adverse sd7 effect. Respiratory: Breath sounds with wheezes bilaterally. at expiration at inspiration. Order Results: Lab Order: CBC with Diff; SPEC'M 02/14/16 14:00 Test: WHITE BLOOD COUNT; Value: 10.1; Range: 4.0-10.0; Abnormal: Above high normal; Units: K/mm3; Status: F Test: RED BLOOD COUNT; Value: 4.62; Range: 4.00-5.40; Units: M/mm3; Status: F Test: HEMOGLOBIN; Value: 14.5; Range: 12.0-16.0; Units: g/dl; Status: F Test: HEMATOCRIT; Value: 42.4; Range: 36.0-47.0; Units: %; Status: F Test: MEAN CORPUSCULAR VOLUME; Value: 91.8; Range: 80.0-96.0; Units: fl; Status: F Test: MEAN CORPUSCULAR HEMOGLOBIN; Value: 31.4; Range: 27.0-33.0; Units: pg; Status: F Test: MEAN CORPUSCULAR HGB CONC; Value: 34.2; Range: 32.0-36.5; Units: g/dl; Status: F Test: RED CELL DISTRIBUTION WIDTH; Value: 12.3; Range: 11.5-14.5; Units: %; Status: F Test: PLATELET COUNT, AUTOMATED; Value: 384; Range: 150-450; Units: k/mm3; Status: F Test: NEUTROPHILS %; Value: 86.1; Range: 36.0-66.0; Abnormal: Above high normal; Units: %; Status: F Test: LYMPH %; Value: 7.2; Range: 24.0-44.0; Abnormal: Below low normal; Units: %; Status: F Test: MONO %; Value: 4.3; Range: 0.0-5.0; Units: %; Status: F Test: EOS %; Value: 0.5; Range: 0.0-3.0; Units: %; Status: F Test: BASO %; Value: 0.6; Range: 0.0-1.0; Units: %; Status: F Test: LARGE UNSTAINED CELL %; Value: 1.3; Range: 0.0-4.0; Units: %; Status: F Test: NEUTROPHILS #; Value: 8.7; Range: 1.8-7.7; Abnormal: Above high normal; Units: K/mm3; Status: F Test: LYMPH #; Value: 0.7; Range: 1.5-4.5; Abnormal: Below low normal; Units: K/mm3; Status: F Test: MONO #; Value: 0.4; Range: 0.0-0.8; Units: K/mm3; Status: F Test: EOS #; Value: 0.0; Range: 0.0-0.50; Units: K/mm3; Status: F Test: BASO #; Value: 0.1; Range: 0.0-0.2; Units: K/mm3; Status: F Test: LARGE UNSTAINED CELL #; Value: 0.1; Range: 0.0-0.4; Units: K/mm3; Status: F Lab Order: MED Profile; SPEC'M 02/14/16 14:00 Test: GLUCOSE, FASTING; Value: 101; Range: 80-110; Units: MG/DL; Status: F Test: BLOOD UREA NITROGEN; Value: 5; Range: 7-18; Abnormal: Below low normal; Units: MG/DL; Status: F Test: CREATININE FOR GFR; Value: 0.27; Range: 0.55-1.02; Abnormal: Below low normal; Units: MG/DL; Status: F Test: GLOMERULAR FILTRATION RATE; Value: > 60.0; Range: >45; Status: F Test: SODIUM LEVEL; Value: 132; Range: 136-145; Abnormal: Below low normal; Units: MEQ/L; Status: F Test: POTASSIUM SERUM; Value: 4.0; Range: 3.5-5.1; Units: MEQ/L; Status: F Test: CHLORIDE LEVEL; Value: 95; Range: 98-107; Abnormal: Below low normal; Units: MEQ/L; Status: F Test: CARBON DIOXIDE LEVEL; Value: 28; Range: 21-32; Units: MEQ/L; Status: F Test: ANION GAP; Value: 9; Range: 8-16; Units: MEQ/L; Status: F Test: CALCIUM LEVEL; Value: 9.4; Range: 8.8-10.2; Units: MG/DL; Status: F Test Note: ; Units are mL/min/1.73 m2 Chronic Kidney Disease Staging per NKF: Stage I & II GFR >=60 Normal to Mildly Decreased Stage III GFR 30-59 Moderately Decreased Stage IV GFR 15-29 Severely Decreased Stage V GFR <15 Very Little GFR Left ESRD GFR <15 on [facility]EL[facility] Lab Order: TROPONIN; DAVID 02/14/16 14:00 Test: TROPONIN I; Value: < 0.02; Range: < 0.10; Units: NG/ML; Status: F Test Note: ; Troponin I Reference Interval for [facility] LOCI: 99th Percentile= 0.00-0.045 ng/ml Risk Stratification: <= 0.10 ng/ml Decreased Risk for Adverse Clinical Events. 0.10-1.50 ng/ml Increased Risk for Adverse Clinical Events. Evaluation of additional criterion and/or repeat testing in 2-6 hours is suggested to rule out myocardial damage. >= 1.50 ng/ml Indicative of Myocardial Injury. Radiology Order: Chest, 2 View (pa\E\lat) Test: Chest, 2 View (pa\E\lat) REASON FOR EXAMINATION: cough, sob; CHEST, TWO VIEWS:; ; HISTORY: Shortness of breath.; ; COMPARISON: 05/23/2012.; ; The lungs are hyperinflated. An increase in interstitial markings is present in; the lungs. The heart is normal in size. The pulmonary vasculature is normal in; appearance. The bony structure is intact.; ; IMPRESSION:; ; COPD.; ; ; Signed by; Doug Reza MD 02/14/2016 05:42 P; Outcome: 15:51 Discharge ordered by Provider. ar2 16:22 Decision to Hospitalize by Provider. ar2 18:22 Discharge Assessment: Patient awake, alert and oriented x 3. No cognitive and/or js13 functional deficits noted. Patient verbalized understanding of disposition instructions. patient administered narcotics - no. The following High Risk Discharge criteria are identified: None. Admitted to Med/Surg accompanied by tech, via stretcher, with oxygen, with chart. Condition: stable. No special radiology studies were completed. Admission hand-off: Report Faxed. Property :Personal belongings accompany Pt. 18:34 Patient left the ED. [facility] Signatures: Dispatcher [facility] Cheyenne Kennedy RN RN Malika Baeza RN RN kpj Niyah Gonzalez, Reg Reg gb Brady Gomez, PA-C PA-C ar2 Maryana Maradiaga, CERTIFIED MORTICIAN CERTIFIED MORTICIAN ar3 Cecy Bazzi,RN RN js13 Lovely Green gr2 Anita Cain,RT RT sd7 Anselmo ZamoraRN RN mb9 Jayleen Schaefer Corrections: (The following items were deleted from the chart) 15:24 14:25 TROPONIN+LAB sent. ar3 EDMS Chart Complete MTDD
== END 2016-02-16 15:25 | disposition home or self-care (01) ==
LOC: M ED 12:31 → M ED INP 16:36 → M MSPAV 18:40
PROVIDERS: ADMIT Hospitalist; ATTEND Internal Medicine
DX: J44.1 Chronic obstructive pulmonary disease with (acute) exacerbation (principal); R06.02 Shortness of breath; R09.02 Hypoxemia; D72.829 Elevated white blood cell count, unspecified; B88.8 Other specified infestations; R00.0 Tachycardia, unspecified; I10 Essential (primary) hypertension; Z86.19 Personal history of other infectious and parasitic diseases; F17.210 Nicotine dependence, cigarettes, uncomplicated; F10.10 Alcohol abuse, uncomplicated; M19.90 Unspecified osteoarthritis, unspecified site; Z88.1 Allergy status to other antibiotic agents; Z79.899 Other long term (current) drug therapy; Z79.51 Long term (current) use of inhaled steroids

== ENCOUNTER → 2016-05-30 | Outpatient (REF) | payer OTHER, MEDICAID ==
[~2016-05-30] MED LIST: ALBU17IN INH; ALBU83IN INH; CETI10TA PO; DRIS50002 PO; FLUT1SPR2; IBUP800T23 PO; LEVA750T PO; LISI10TA4 PO; MEDR4PAK PO; MONT10TA2 PO; OMEP40CA2 PO; SYMB80INH INH; VENL37.598 PO
[2016-05-30 17:41] LABS: MEAN CORPUSCULAR HEMOGLOBIN 30.8 pg (27.0-33.0); MEAN CORPUSCULAR HGB CONC 32.4 g/dl (32.0-36.5); MEAN CORPUSCULAR VOLUME 94.8 fl (80.0-96.0); RED CELL DISTRIBUTION WIDTH 13.4 % (11.5-14.5); WHITE BLOOD COUNT 5.2 K/mm3 (4.0-10.0)
[2016-05-30 18:37] LABS: ALBUMIN 4.1 GM/DL (3.2-5.2); ALBUMIN/GLOBULIN RATIO 1.37 (1.00-1.93); ALKALINE PHOSPHATASE 58 U/L (45-117); ALT/SGPT 15 U/L (12-78); ANION GAP 8 MEQ/L (8-16); AST/SGOT 13 U/L (15-37); BILIRUBIN,TOTAL 0.2 MG/DL (0.2-1.0); BLOOD UREA NITROGEN 3 MG/DL (7-18); CALCIUM LEVEL 8.7 MG/DL (8.8-10.2); CARBON DIOXIDE LEVEL 29 MEQ/L (21-32); CHLORIDE LEVEL 99 MEQ/L (98-107); CHOLESTEROL LEVEL 200 MG/DL (<200); CREATININE FOR GFR 0.39 MG/DL (0.55-1.02); GLOMERULAR FILTRATION RATE > 60.0 (>45); GLUCOSE, FASTING 83 MG/DL (80-110); POTASSIUM SERUM 4.5 MEQ/L (3.5-5.1); SODIUM LEVEL 136 MEQ/L (136-145); TOTAL PROTEIN 7.1 GM/DL (6.4-8.2); TRIGLYCERIDES LEVEL 89 MG/DL (<150)
== END ==
LOC: M SFHCPLAZ 15:21
PROVIDERS: ATTEND Nurse Practitioner Adult Health
DX: Z00.00 Encounter for general adult medical examination without abnormal findings (principal); E55.9 Vitamin D deficiency, unspecified

== ENCOUNTER 2016-07-24 15:13 | Inpatient (IN) | payer MEDICAID, OTHER ==
[~2016-07-24] VITALS: Ht 157.5 cm; Wt 40.4 kg
[2016-07-24] MEDS ORDERED: IPRATROPIUM 0.5MG/ALBUTEROL 2.5MG INH SOL UD 3ML (DUONEB)(J7620) NEB ONE (15:45)
[2016-07-24] MEDS ORDERED: methylPREDNISolone INJ 125 MG/2 ML VIAL (J2930) IV ONE (15:45)
[2016-07-24] MEDS ORDERED: ALBUTEROL SULFATE 2.5 MG/0.5 ML INH NEB SOLN INH ONE (15:45)
[2016-07-24 16:15] LABS: BASO # 0.1 K/mm3 (0.0-0.2); BASO % 0.6 % (0.0-1.0); EOS # 0.2 K/mm3 (0.0-0.50); EOS % 1.3 % (0.0-3.0); LARGE UNSTAINED CELL # 0.1 K/mm3 (0.0-0.4); LARGE UNSTAINED CELL % 1.1 % (0.0-4.0); LYMPH # 1.5 K/mm3 (1.5-4.5); LYMPH % 11.4 % (24.0-44.0); MEAN CORPUSCULAR HEMOGLOBIN 32.2 pg (27.0-33.0); MEAN CORPUSCULAR HGB CONC 35.5 g/dl (32.0-36.5); MEAN CORPUSCULAR VOLUME 90.7 fl (80.0-96.0); MONO # 0.6 K/mm3 (0.0-0.8); MONO % 4.8 % (0.0-5.0); NEUTROPHILS # 9.9 K/mm3 (1.8-7.7); NEUTROPHILS % 80.9 % (36.0-66.0); PLATELET COUNT, AUTOMATED 483 k/mm3 (150-450); RED CELL DISTRIBUTION WIDTH 13.1 % (11.5-14.5); WHITE BLOOD COUNT 12.3 K/mm3 (4.0-10.0)
[2016-07-24 16:36] LABS: ALBUMIN 3.6 GM/DL (3.2-5.2); ALBUMIN/GLOBULIN RATIO 0.97 (1.00-1.93); ALKALINE PHOSPHATASE 111 U/L (45-117); ALT/SGPT 24 U/L (12-78); ANION GAP 10 MEQ/L (8-16); AST/SGOT 24 U/L (15-37); BILIRUBIN,DIRECT 0.1 MG/DL (0.0-0.2); BILIRUBIN,TOTAL 0.3 MG/DL (0.2-1.0); BLOOD UREA NITROGEN 13 MG/DL (7-18); CALCIUM LEVEL 9.5 MG/DL (8.8-10.2); CARBON DIOXIDE LEVEL 26 MEQ/L (21-32); CHLORIDE LEVEL 87 MEQ/L (98-107); CREATININE FOR GFR 0.33 MG/DL (0.55-1.02); GLOMERULAR FILTRATION RATE > 60.0 (>45); GLUCOSE, FASTING 132 MG/DL (80-110); POTASSIUM SERUM 4.2 MEQ/L (3.5-5.1); SODIUM LEVEL 123 MEQ/L (136-145); THYROXINE (T4) 8.8 UG/DL (4.5-12.0); TOTAL PROTEIN 7.3 GM/DL (6.4-8.2)
[2016-07-24 16:39] LABS: ABG BASE EXCESS -1.7 (-2.0-2.0); ABG HCO3 22.6 MEQ/L (22.0-26.0); ABG PARTIAL PRESSURE CO2 37.4 mmHg (35.0-45.0); ABG PARTIAL PRESSURE O2 81.5 mmHg (75.0-100.0); ABG TOTAL CO2 23.8 MEQ/L (23.0-31.0)
[2016-07-24] MEDS ORDERED: ISOVUE-370 76% 100ML VIAL (Q9967) As Ordered ONE (17:31)
[2016-07-24] MEDS ORDERED: BRIN1TAB PO (17:45)
[2016-07-24] MEDS ORDERED: KETO0.02 OU (17:45)
--- NOTE | 2016-07-24 17:55 | REP ---
PORTABLE CHEST: AP portable view of the chest is performed and compared to prior study of 02/14/2016. There are again increased interstitial markings in the lung bases bilaterally with hyperinflation suggesting chronic COPD and fibrosis. No definite superimposed acute infiltrate is seen. The heart is normal in size. The mediastinal silhouette is unchanged. IMPRESSION: Stable chronic findings without definite acute infiltrate. Signed by Jameson Rosales MD 07/25/2016 07:41 P
[2016-07-24] MEDS ORDERED: NS 1,000 ML IV SCH (18:20)
[2016-07-24] MEDS ORDERED: ALBUTEROL SULFATE 2.5 MG/0.5 ML INH NEB SOLN INH PRN (18:30)
[2016-07-24] MEDS ORDERED: ALBUTEROL 90 MCG/ACT 8GM HFA INHALER INH PRN (18:30)
[2016-07-24] MEDS ORDERED: ONDANSETRON 4MG/2ML VIAL (J2405) IV PRN (18:30)
[2016-07-24] MEDS ORDERED: OMEPRAZOLE 20 MG CAP PO PRN (18:30)
[2016-07-24] MEDS ORDERED: BISACODYL 5 MG TAB PO PRN (18:30)
--- NOTE | 2016-07-24 18:44 | REP ---
CT ANGIOGRAM CHEST: 07/24/2016. Comparison: Portable chest 07/24/2016, chest x-ray 02/14/2016. Clinical history: Dyspnea, evaluate for pulmonary embolism. Technique: The patient received a bolus of 75 ml of Isovue 370 with scanning through the chest using our pulmonary angiogram protocol with coronal and sagittal thick slab MIP reformatting. Findings: Lungs are hyperinflated with emphysematous changes and mild interstitial fibrotic change present. There is no pleural based mass or calcification. There is some subpleural atelectatic or fibrotic change bilaterally in the lower lobes and deep sulci posteriorly and laterally. No definite effusion. Tiny subpleural nodules noted in the right lower lobe in the 2 to 3 mm range. These might be obscured by the atelectatic and fibrotic changes in the deep sulci. Small emphysematous bullous changes are noted scattered. There is no acute infiltrate with air bronchograms. Some of the segmental bronchi are larger than adjacent segmental pulmonary arteries suggesting some bronchiectasis. This is most notable in the lower lobes. Curvilinear fibroatelectatic change in the medial segment right middle lobe. The heart is not enlarged. There is no pericardial thickening or effusion. The aorta is without aneurysm or dissection. The main, right and left pulmonary arteries and the mediastinum are without filling defects. The lobar, segmental and visible subsegmental arteries are without filling defects or vessel cutoff to suggest pulmonary embolus. No pathologic sized mediastinal or hilar adenopathy. No axillary or supraclavicular mass. Thyroid lobes symmetric. Bone windows show the sternum, manubrium, medial clavicles, humeral heads, scapulae, ribs and spine without compression deformity, destructive lesion or fractures. No hiatal hernia evident. Great vessels off the aorta shows atherosclerotic calcifications. In the upper abdomen, only limited portion of liver and spleen identified. Those portions included are not enlarged and show no gross mass. Adrenal glands grossly intact. Upper poles kidneys intact. Stomach collapsed. The body and tail of the pancreas grossly unremarkable but limited in evaluation. Impression: 1. COPD with emphysematous changes. Some basilar fibrotic changes and subpleural nodules and lower lobe atelectatic changes bilaterally. 2. No pleural effusion, dense consolidation with air bronchograms, pneumothorax or pneumomediastinum. 3. No CT evidence of pulmonary thromboembolism or aortic aneurysm. No vessel cutoff. 4. No mediastinal or hilar pathologic sized adenopathy nor destructive bone lesion. Upper abdomen grossly intact. Signed by Ran Jennings MD 07/25/2016 11:39 A
[2016-07-24] MEDS: IPRATROPIUM 0.5MG/ALBUTEROL 2.5MG INH SOL UD 3ML (DUONEB)(J7620) NEB SCH (20:00)
[2016-07-24 20:07] LABS: ANION GAP 9 MEQ/L (8-16); BLOOD UREA NITROGEN 11 MG/DL (7-18); CALCIUM LEVEL 9.6 MG/DL (8.8-10.2); CARBON DIOXIDE LEVEL 27 MEQ/L (21-32); CHLORIDE LEVEL 88 MEQ/L (98-107); GLOMERULAR FILTRATION RATE > 60.0 (>45); GLUCOSE, FASTING 120 MG/DL (80-110); POTASSIUM SERUM 4.4 MEQ/L (3.5-5.1); SODIUM LEVEL 124 MEQ/L (136-145)
[2016-07-24 20:10] LABS: OSMOLALITY URINE 321 MOSM/KG (500-800)
[2016-07-24 20:24] VITALS: BP 124/73
[2016-07-24] MEDS: SYMBICORT 80/4.5MCG INHALER 6GM INH SCH (21:00)
[2016-07-24] MEDS: CETIRIZINE (ZyrTEC) 10 MG TAB PO SCH (21:11)
[2016-07-24] MEDS: LISINOPRIL 10 MG TAB PO SCH (21:12)
[2016-07-24] MEDS: cefTRIAXone SOD 2 GM in D5W MINI-BAG PLUS 50 ML IV SCH (21:36)
[2016-07-24] MEDS: AZITHROMYCIN INJ 500 MG, VIAL MATE ADAPTER 1 EACH in D5W 250 ML IV SCH (22:43)
[2016-07-24] MEDS: methylPREDNISolone INJ 125 MG/2 ML VIAL (J2930) IV SCH (22:43)
--- NOTE | 2016-07-24 23:02 | HPE ---
DATE OF ADMISSION: 07/24/2016 PRIMARY CARE PHYSICIAN: Barbara Echeverria RN, A.N.P. CHIEF COMPLAINT: Shortness of breath and increase of cough. HISTORY OF PRESENT ILLNESS: Ms. Ziegler is a 60-year-old with multiple past medical histories who presented to the emergency room (ER) due to experiencing shortness of breath, as well as increase of cough. The patient expressed the symptoms started one month ago. The patient has been diagnosed with chronic obstructive pulmonary disease (COPD). However, the patient is not on oxygen at home and only on breathing treatments. However, the patient expressed that she has been using her breathing treatment more recently. The patient denies sick contact. The patient expressed that she has been having fever; however, she did not take her temperature, as well as chills and night sweats. The patient also had several times of lightheadedness and dizziness; however, the patient denies syncope or seizure type activities. The patient expressed that she does not use assistance when ambulating; however, due to shortness of breath her ambulation has decreased. The patient also expressed that her cough has become more productive with clear and sometimes yellow sputum. However, the patient has chronic cough and her sputum production has increased. ALLERGIES: Bactrim, which causes nausea, vomiting and rash. HOME MEDICATIONS: - albuterol sulfate 2.5 mg INH every 4 hours as needed for shortness of breath. - Ventolin HFA 2 puff inhaler every 4 hours as needed for shortness of breath - Symbicort 2 puff inhaler twice a day - cetirizine 10 mg by mouth at bedtime (q.h.s.) - ibuprofen 800 mg by mouth every 8 hours as needed for pain - ketotifen fumarate one drop both eyes twice a day - lisinopril 10 mg by mouth at bedtime (q.h.s.) - montelukast 10 mg by mouth daily - omeprazole 40 mg by mouth daily as needed for heartburn and indigestion - Drisdol 70580 units by mouth every two weeks, every other Saturday - Trintellix 5 mg by mouth at bedtime (q.h.s.) PAST MEDICAL HISTORY: 1. History of hepatitis C. 2. Chronic obstructive pulmonary disease (COPD) on nebulizer at home; however the patient is not oxygen. 3. Hypertension. 4. Tobacco abuse. 5. Alcohol abuse. PAST SURGICAL HISTORY: 1. Tonsillectomy. 2. section. SOCIAL HISTORY: The patient expressed that she lives at home alone; however, sometimes her friends come and stay with her. The patient expressed she has been smoking since she was 12 years old, about half a pack a day up to now. The patient denies illicit drug use. The patient expressed that she drinks beer two times a week. The patient does not have any pets at home. The patient has not traveled outside of the [place]. FAMILY HISTORY: The patient has two sons and two daughters who are healthy for their age. The patient has a healthy brother; however, her oldest due to age. The patient does not know anything about her father; however, the patient expressed that her mother due to old age. REVIEW OF SYSTEMS: GENERAL: The patient expressed that she has been having fever, chills, night sweats. However, the patient denies weight lost. HEENT: The patient denies any acute vision or hearing changes. The patient denies problems with chewing food or sinusitis. NECK: The patient has no loss of range of motion of her neck. HEART: The patient denies palpitations, racing or skipping heart beat or chest pain. LUNGS: The patient expressed that she has been having shortness of breath, as well as more production of sputum and increase of cough; however, the patient at baseline has the cough and sputum production, which has increased for the past month. ABDOMEN: The patient denies abdominal pain, nausea or vomiting, diarrhea or hematemesis, melena, hematochezia. NEURO: The patient has no history of transient ischemic attack, CVA or seizure type activity. PHYSICAL EXAMINATION: VITAL SIGNS: Temperature 97.6, pulse 118, respiratory rate 20, blood pressure 154/92, pulse oximetry 90% on room air. GENERAL APPEARANCE: The patient was lying in bed in no acute distress. The patient was awake, alert and oriented to time, place, and person. HEENT: Normocephalic, atraumatic. Pupils equal and reactive to light. Oral mucosa is moist. NECK: Supple. No lymphadenopathy, thyromegaly or jugular venous distension (JVD). HEART: Tachycardia. Normal S1, S2. ABDOMEN: Soft, nontender. Positive bowel sounds in all quadrants. EXTREMITIES: No lower extremity edema. Positive pulses in both lower extremities. The patient has normal range of motion with upper and lower extremities. NEURO: The patient had transient ischemic attack. No focal deficiencies. LABORATORY DATA: White blood cells 12.3, red blood cells 4.52, hemoglobin 14.5, hematocrit 41, MCV 90.7, MCH 30.2, MCHC 35.5, red cell distribution width (RDW) 13.1, platelet count 483, neutrophil percentage 80.9, lymphocyte percentage 11.4, monocyte percentage 4.8, eosinophil percentage 1.3, basophil percentage 0.6, leukocyte percentage 1.1. Arterial blood gas (ABG): Bicarbonate standard 23, arterial blood gas (ABG) pH is 7.4, arterial blood gas (ABG) pCO2 37.4, arterial blood gas (ABG) pO2 81.5, arterial blood gas (ABG) HCO3 22.6, arterial blood gas (ABG) total CO2 23.8, arterial blood gas (ABG) oxygen saturation 95.5. Sodium 123, potassium 4.2, chloride 87, carbon dioxide 26, anion gap 10, BUN 13, creatine 0.33, glomerular filtration rate (GFR) more than 60, fasting glucose 132, lactic acid 0.9, calcium 9.5, total bilirubin 0.3, direct bilirubin 0.1, AST 24, ALT 24, alkaline phosphatase 111, total creatine kinase 140, CK-MB 3.3, CK-MB relative index 2.35, troponin I less than 0.32, BNP 56.4, total protein 7.3, albumin 3.6, thyroid simulating hormone (TSH) 1.73, thyroxine 8.8. Blood culture is pending. IMAGING STUDY: CT angiogram of the chest shows chronic obstructive pulmonary disease (COPD) with emphysematous changes, some basilar fibrosis changes and some pleural nodules in the lower lobe, atelectasis changes bilaterally. No pleural effusion. Dense consolidation with air bronchogram and pneumothorax or pneumomediastinum. Also CT did not show any evidence of pulmonary thromboembolism or aortic aneurysm. No vessel cutoff. Chest x-ray shows several chronic findings without definitive acute infiltration. ASSESSMENT AND PLAN: 1. Dyspnea. This is possibly pneumonia versus chronic obstructive pulmonary disease (COPD) exacerbation. At this time, we have started the patient on Rocephin and azithromycin due to the possibility of pneumonia. Since the patient has leukocytosis, also we have ordered a sputum culture and Gram stain, as well as Legionella and pneumonia, urinalysis due to the patient having hyponatremia. We will continue monitoring the patient, also we will continue the patient on breathing treatment as well as Solu-Medrol and will continue the patient on oxygen with the goal of 88 to 92. Also, we have ordered blood cultures, result is pending. 2. Chronic obstructive pulmonary disease (COPD). We have started the patient on DuoNeb and will continue with the current breathing treatment, as well as Solu-Medrol. 3. Hyponatremia. This could be secondary to alcohol abuse. However, level is pending at this time. Also, it could be secondary to syndrome of inappropriate secretion of antidiuretic hormone (SIADH), abnormal adrenal gland function. function, as well as hypovolemic hyponatremia. We have ordered urine and serum osmolarity, as well as urine sodium level. Result is pending at this time . We have started the patient on IV normal saline at the rate of 50 and we are checking the basic metabolic panel every 4 hours and we have put a nursing order to call the attending for every basic metabolic panel result. 4. Deep vein thrombosis (DVT) prophylaxis. The patient is on Lovenox. 5. Gastroesophageal reflux. The patient is on Prilosec. 6. Allergies. The patient is on Zyrtec. 7. Leukocytosis. This could be possibly secondary to infection, possibly pneumonia. However, the patient is IV antibiotic. We will continue monitoring the patient's white blood cells. My preceptor for this patient encounter was Dr. Argueta. The preceptor was physically present in the building during the encounter and was fully available. As needed, all aspects of the patient interview, examination, medical decision making process, and medical care plan development were reviewed and approved by the preceptor. The preceptor is aware and concurs with the plan as stated in the body of this note and will attest to such by his/her cosignature.
[2016-07-25 00:57] LABS: ANION GAP 8 MEQ/L (8-16); BLOOD UREA NITROGEN 12 MG/DL (7-18); CALCIUM LEVEL 9.1 MG/DL (8.8-10.2); CARBON DIOXIDE LEVEL 28 MEQ/L (21-32); CHLORIDE LEVEL 92 MEQ/L (98-107); CREATININE FOR GFR 0.34 MG/DL (0.55-1.02); GLOMERULAR FILTRATION RATE > 60.0 (>45); GLUCOSE, FASTING 251 MG/DL (80-110); POTASSIUM SERUM 4.3 MEQ/L (3.5-5.1); SODIUM LEVEL 128 MEQ/L (136-145)
[2016-07-25] MEDS: IPRATROPIUM 0.5MG/ALBUTEROL 2.5MG INH SOL UD 3ML (DUONEB)(J7620) NEB SCH ×4 (02:00→20:00)
[2016-07-25 04:32] LABS: ALKALINE PHOSPHATASE 99 U/L (45-117); ALT/SGPT 23 U/L (12-78); ANION GAP 6 MEQ/L (8-16); AST/SGOT 15 U/L (15-37); BLOOD UREA NITROGEN 10 MG/DL (7-18); CALCIUM LEVEL 9.1 MG/DL (8.8-10.2); CARBON DIOXIDE LEVEL 30 MEQ/L (21-32); CHLORIDE LEVEL 92 MEQ/L (98-107); CREATININE FOR GFR 0.32 MG/DL (0.55-1.02); GLOMERULAR FILTRATION RATE > 60.0 (>45); GLUCOSE, FASTING 177 MG/DL (80-110); POTASSIUM SERUM 4.1 MEQ/L (3.5-5.1); SODIUM LEVEL 128 MEQ/L (136-145)
[2016-07-25 04:33] LABS: ALBUMIN 3.2 GM/DL (3.2-5.2); ALBUMIN/GLOBULIN RATIO 0.76 (1.00-1.93); BILIRUBIN,TOTAL 0.2 MG/DL (0.2-1.0); MAGNESIUM LEVEL 2.1 MG/DL (1.8-2.4); TOTAL PROTEIN 7.4 GM/DL (6.4-8.2)
[2016-07-25] MEDS ORDERED: NS 1,000 ML IV SCH (04:45)
[2016-07-25 05:34] LABS: BASO % 0.4 % (0.0-1.0); EOS % 0.5 % (0.0-3.0); LARGE UNSTAINED CELL % 0.6 % (0.0-4.0); LYMPH # 0.5 K/mm3 (1.5-4.5); LYMPH % 8.8 % (24.0-44.0); MEAN CORPUSCULAR HEMOGLOBIN 31.8 pg (27.0-33.0); MEAN CORPUSCULAR HGB CONC 34.2 g/dl (32.0-36.5); MONO # 0.1 K/mm3 (0.0-0.8); NEUTROPHILS # 4.8 K/mm3 (1.8-7.7); NEUTROPHILS % 88.7 % (36.0-66.0); PLATELET COUNT, AUTOMATED 487 k/mm3 (150-450); RED CELL DISTRIBUTION WIDTH 13.1 % (11.5-14.5); WHITE BLOOD COUNT 5.4 K/mm3 (4.0-10.0)
[2016-07-25 05:49] VITALS: BP 119/70
[2016-07-25] MEDS: methylPREDNISolone INJ 125 MG/2 ML VIAL (J2930) IV SCH (06:22)
[2016-07-25 07:43] LABS: ANION GAP 6 MEQ/L (8-16); BLOOD UREA NITROGEN 10 MG/DL (7-18); CALCIUM LEVEL 9.5 MG/DL (8.8-10.2); CARBON DIOXIDE LEVEL 28 MEQ/L (21-32); CHLORIDE LEVEL 94 MEQ/L (98-107); CREATININE FOR GFR 0.28 MG/DL (0.55-1.02); GLOMERULAR FILTRATION RATE > 60.0 (>45); GLUCOSE, FASTING 148 MG/DL (80-110); POTASSIUM SERUM 4.1 MEQ/L (3.5-5.1); SODIUM LEVEL 128 MEQ/L (136-145)
[2016-07-25] MEDS: MONTELUKAST 10 MG TAB PO SCH (08:37)
[2016-07-25] MEDS: ENOXAPARIN 40 MG/0.4 ML SYRINGE (J1650) SC SCH (08:38)
[2016-07-25] MEDS: SYMBICORT 80/4.5MCG INHALER 6GM INH SCH ×2 (08:39→20:51)
[2016-07-25] MEDS: ACETAMINOPHEN TAB 650MG DOSE (2X325MG) PO PRN ×2 (08:44→20:49)
[2016-07-25 12:34] LABS: ANION GAP 9 MEQ/L (8-16); BLOOD UREA NITROGEN 11 MG/DL (7-18); CALCIUM LEVEL 9.6 MG/DL (8.8-10.2); CARBON DIOXIDE LEVEL 28 MEQ/L (21-32); CHLORIDE LEVEL 93 MEQ/L (98-107); CREATININE FOR GFR 0.58 MG/DL (0.55-1.02); GLUCOSE, FASTING 265 MG/DL (80-110); POTASSIUM SERUM 4.1 MEQ/L (3.5-5.1); SODIUM LEVEL 130 MEQ/L (136-145)
[2016-07-25 12:38] LABS: GLOMERULAR FILTRATION RATE > 60.0 (>45)
[2016-07-25] MEDS ORDERED: GLUCOSE 4 GM CHEW TABLET PO PRN (13:15)
[2016-07-25] MEDS ORDERED: DEXTROSE 50% 50 ML SYRINGE IV PRN (13:15)
[2016-07-25] MEDS ORDERED: GLUCAGON FOR INJ 1 MG VIAL (J1610) SC PRN (13:15)
--- NOTE | 2016-07-25 13:33 | IPNPDOC ---
Subjective Date Seen The patient was seen on 07/25/16. Subjective Chief Complaint/HPI The patient is a 61-year-old female admitted with a reason for visit of Hyponatremia. Events since last encounter Shortness of breath a little better this am , has intermittent coughing spells with whitish sputum production , no fever or chills, though does take some ibuprofen at home as she feels like she is having hot flushes. no nausea or vomiting or diarrhea. No chest pain , no abdominal pain . She does say that she drinks about 1000ml of pepsi and about 8 cups of coffee per day and some water and milk too. She in fact loves to drink. Objective Physical Examination General Exam: Positive: Alert, Cooperative, No Acute Distress Eye Exam: Positive: PERRLA, Conjunctiva & lids normal, EOMI, Negative: Sclera icteric ENT Exam: Positive: Atraumatic, Mucous membr. moist/pink, Pharynx Normal Neck Exam: Positive: Supple, Negative: JVD, thyromegaly Chest Exam: Positive: Rales, Rhonchi, Diminished Heart Exam: Positive: Rate Normal, Regular Rhythm, Normal S1, Normal S2, Negative: Murmurs, Rubs Abdomen Exam: Positive: Normal bowel sounds, Soft, Negative: Tenderness, Hepatospenomegaly Extremity Exam: Positive: Normal pulses, Negative: Clubbing, Cyanosis, Edema Skin Exam: Positive: Nl turgor and temperature, Negative: Rash, Breakdown Assessment /Plan Problems (1) COPD exacerbation Status: Acute Problem Text: cxr with emphysema no acute changes, CT angio negative for PE. will continue with nebs, antibiotics and steroids. will get echo to evaluate for pulmonary hypertension and corpulmonale. (2) Hyperglycemia, drug-induced Problem Text: due to steroids, will place on sliding scale insulin. check fingerstick AC and HS. (3) Hyponatremia Status: Acute Problem Text: acute on chronic . 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 Also Patient drinks a lots of fluids will place the patient on regular diet with fluid restriction of 1.5 liters. TSH normal will check uric acid, am cortisol , urine electrolytes. (4) HTN (hypertension) Status: Chronic Problem Text: continue lisinopril. (5) History of hepatitis C Status: Chronic (6) Encounter for smoking cessation counseling Status: Acute Problem Text: discussed smoking cessation counselling for 5 mins . offered educational materials regarding way to quit smoking . pateint is going to think about it. Plan/VTE VTE Prophylaxis Ordered?: Yes VS, I&O, 24H, Fishbone Vital Signs/I&O Vital Signs Date Time Temp Pulse Resp B/P (MAP) Pulse Ox O2 Delivery O2 Flow Rate FiO2 07/25/16 09:00 Nasal Cannula 2.0 07/25/16 05:49 98.0 93 18 119/70 (86) 95 I&O- Last 24 Hours up to 6 AM 07/25/16 06:00 Intake Total 480 ml Balance 480 ml Laboratory Data 24H LABS Laboratory Tests 2 07/24/16 15:46: White Blood Count 12.3H, Red Blood Count 4.52, Hemoglobin 14.5, Hematocrit 41.0 , Mean Corpuscular Volume 90.7, Mean Corpuscular Hemoglobin 32.2, Mean Corpuscular Hemoglobin Concent 35.5, Red Cell Distribution Width 13.1, Platelet Count 483H, Neutrophils (%) (Auto) 80.9H, Lymphocytes (%) (Auto) 11.4L, Monocytes (%) (Auto) 4.8, Eosinophils (%) (Auto) 1.3, Basophils (%) (Auto) 0.6, Neutrophils # (Auto) 9.9H, Lymphocytes # (Auto) 1.5, Monocytes # (Auto) 0.6, Eosinophils # (Auto) 0.2, Basophils # (Auto) 0.1, Large Unclassified Cells % 1.1 , Large Unclassified Cells # 0.1, Anion Gap 10, Glomerular Filtration Rate > 60.0, Lactic Acid Level 0.9, Calcium Level 9.5, Aspartate Amino Transf (AST/SGOT ) 24, Alanine Aminotransferase (ALT/SGPT) 24, Alkaline Phosphatase 111, Total Bilirubin 0.3, Direct Bilirubin 0.1, Total Creatine Kinase 140, Creatine Kinase MB 3.3, Creatine Kinase MB Relative Index 2.35, Troponin I < 0.02, B-Type Natriuretic Peptide 56.4, Total Protein 7.3, Albumin 3.6, Albumin/Globulin Ratio 0.97L, Thyroid Stimulating Hormone (TSH) 1.730, Thyroxine (T4) 8.8 07/24/16 16:20: Blood Gas Bicarbonate Standard 23.0, Arterial Blood pH 7.400, Arterial Blood Partial Pressure CO2 37.4, Arterial Blood Partial Pressure O2 81.5, Arterial Blood Total CO2 23.8, Arterial Blood HCO3 22.6, Arterial Blood Base Excess -1.7 , Arterial Blood Oxygen Saturation 95.5 07/24/16 19:29: Urine Random Osmolality 321L, Urine Random Sodium 16 07/24/16 19:30: Anion Gap 9, Glomerular Filtration Rate > 60.0, Calcium Level 9.6, Osmolality 272L, Blood Urea Nitrogen 11, Creatinine 0.30L, Sodium Level 124L, Potassium Level 4.4, Chloride Level 88L, Carbon Dioxide Level 27, C-Reactive Protein, Quantitative 1.60H, Ethyl Alcohol Level < 0.003 07/25/16 00:28: Anion Gap 8, Glomerular Filtration Rate > 60.0, Blood Urea Nitrogen 12, Creatinine 0.34L, Sodium Level 128L, Potassium Level 4.3, Chloride Level 92L, Carbon Dioxide Level 28, Calcium Level 9.1 07/25/16 03:48: Anion Gap 6L, Glomerular Filtration Rate > 60.0, Blood Urea Nitrogen 10, Creatinine 0.32L, Sodium Level 128L, Potassium Level 4.1, Chloride Level 92L, Carbon Dioxide Level 30, Calcium Level 9.1, White Blood Count 5.4, Red Blood Count 4.72, Hemoglobin 15.0, Hematocrit 43.9, Mean Corpuscular Volume 93.0, Mean Corpuscular Hemoglobin 31.8, Mean Corpuscular Hemoglobin Concent 34.2, Red Cell Distribution Width 13.1, Platelet Count 487H, Neutrophils (%) (Auto) 88.7H , Lymphocytes (%) (Auto) 8.8L, Monocytes (%) (Auto) 1.0, Eosinophils (%) (Auto) 0.5, Basophils (%) (Auto) 0.4, Neutrophils # (Auto) 4.8, Lymphocytes # (Auto) 0.5L, Monocytes # (Auto) 0.1, Eosinophils # (Auto) 0.0, Basophils # (Auto) 0.0, Large Unclassified Cells % 0.6, Large Unclassified Cells # 0.0, Aspartate Amino Transf (AST/SGOT) 15, Alanine Aminotransferase (ALT/SGPT) 23, Alkaline Phosphatase 99, Total Bilirubin 0.2, Total Protein 7.4, Albumin 3.2, Magnesium Level 2.1, Albumin/Globulin Ratio 0.76L 07/25/16 07:05: Anion Gap 6L, Glomerular Filtration Rate > 60.0, Blood Urea Nitrogen 10, Creatinine 0.28L, Sodium Level 128L, Potassium Level 4.1, Chloride Level 94L, Carbon Dioxide Level 28, Calcium Level 9.5 07/25/16 11:51: Anion Gap 9, Glomerular Filtration Rate > 60.0, Blood Urea Nitrogen 11, Creatinine 0.58#, Sodium Level 130L, Potassium Level 4.1, Chloride Level 93L, Carbon Dioxide Level 28, Calcium Level 9.6 CBC/BMP Laboratory Tests 07/24/16 15:46 Red Blood Count 4.52, Mean Corpuscular Volume 90.7, Mean Corpuscular Hemoglobin 32.2, Mean Corpuscular Hemoglobin Concent 35.5, Red Cell Distribution Width 13.1 , Neutrophils (%) (Auto) 80.9 H, Lymphocytes (%) (Auto) 11.4 L, Monocytes (%) ( Auto) 4.8, Eosinophils (%) (Auto) 1.3, Basophils (%) (Auto) 0.6, Neutrophils # ( Auto) 9.9 H, Lymphocytes # (Auto) 1.5, Monocytes # (Auto) 0.6, Eosinophils # ( Auto) 0.2, Basophils # (Auto) 0.1 07/24/16 19:30 Calcium Level 9.6 07/25/16 00:28 Calcium Level 9.1 07/25/16 03:48 Red Blood Count 4.72, Mean Corpuscular Volume 93.0, Mean Corpuscular Hemoglobin 31.8, Mean Corpuscular Hemoglobin Concent 34.2, Red Cell Distribution Width 13.1 , Neutrophils (%) (Auto) 88.7 H, Lymphocytes (%) (Auto) 8.8 L, Monocytes (%) ( Auto) 1.0, Eosinophils (%) (Auto) 0.5, Basophils (%) (Auto) 0.4, Neutrophils # ( Auto) 4.8, Lymphocytes # (Auto) 0.5 L, Monocytes # (Auto) 0.1, Eosinophils # ( Auto) 0.0, Basophils # (Auto) 0.0, Calcium Level 9.1, Aspartate Amino Transf ( AST/SGOT) 15, Alanine Aminotransferase (ALT/SGPT) 23, Alkaline Phosphatase 99, Total Bilirubin 0.2, Total Protein 7.4, Albumin 3.2 07/25/16 07:05 Calcium Level 9.5 07/25/16 11:51 Calcium Level 9.6 Microbiology Microbiology 07/24/16 Blood Culture, Received Pending 07/24/16 Blood Culture, Received Pending 07/24/16 Gram Stain - Final, Resulted 07/24/16 Sputum Culture, Resulted Pending 07/24/16 Influenza Virus Type A Antigen - Final, Complete 07/24/16 Influenza Virus Type B Antigen - Final, Complete BRIGIDO TIDWELL MD Jul 25, 2016 13:33
[2016-07-25 13:39] LABS: URIC ACID 3.3 MG/DL (2.6-6.0)
[2016-07-25 14:00] VITALS: BP 102/56
[2016-07-25] MEDS: methylPREDNISolone INJ 40 MG/1 ML VIAL (J2920) IV SCH ×2 (14:00→21:51)
--- NOTE | 2016-07-25 16:16 | ECGEPIP ---
Stationary ECG Study [facility] - ED Test Date: 2016-07-24 Pat Name: YONY YANCEY Department: Room: [place] [address] Gender: F Storage Receipt Poster: SHERWIN : [id number] Requested By: Kelli Kolb Order Number: [id number] Reading MD: Joan Solomon Measurements Intervals [place] Rate: 110 P: 89 FL: 137 QRS: 74 QRSD: 82 T: 69 QT: 316 QTc: 429 Interpretive Statements SINUS TACHYCARDIA ANTEROSEPTAL MYOCARDIAL INFARCTION, OF INDETERMINATE AGE NSTTW ABNORMALITY INCREASED RATE 02/14/16 Electronically Signed On 07-25-2016 16:16:48 EDT by Joan Solomon
[2016-07-25 17:10] VITALS: BP 108/65
[2016-07-25] MEDS: HumaLOG INSULIN (NovoLOG) PER UNIT SC SCH ×2 (18:06→21:35)
[2016-07-25 20:00] VITALS: BP 109/66
[2016-07-25] MEDS: CETIRIZINE (ZyrTEC) 10 MG TAB PO SCH (20:45)
[2016-07-25] MEDS: LISINOPRIL 10 MG TAB PO SCH (20:46)
[2016-07-25] MEDS: cefTRIAXone SOD 2 GM in D5W MINI-BAG PLUS 50 ML IV SCH (20:48)
[2016-07-25] MEDS: AZITHROMYCIN INJ 500 MG, VIAL MATE ADAPTER 1 EACH in D5W 250 ML IV SCH (21:51)
[2016-07-26] MEDS: IPRATROPIUM 0.5MG/ALBUTEROL 2.5MG INH SOL UD 3ML (DUONEB)(J7620) NEB SCH ×4 (01:50→19:20)
[2016-07-26 04:00] VITALS: BP 114/74
[2016-07-26] MEDS: methylPREDNISolone INJ 40 MG/1 ML VIAL (J2920) IV SCH ×3 (06:55→21:54)
[2016-07-26] MEDS: SYMBICORT 80/4.5MCG INHALER 6GM INH SCH ×2 (07:28→19:59)
[2016-07-26 08:00] VITALS: BP 108/65
[2016-07-26 08:26] LABS: BASO % 0.1 % (0.0-1.0); EOS % 0.1 % (0.0-3.0); LARGE UNSTAINED CELL # 0.1 K/mm3 (0.0-0.4); LARGE UNSTAINED CELL % 0.6 % (0.0-4.0); LYMPH # 1.2 K/mm3 (1.5-4.5); LYMPH % 8.9 % (24.0-44.0); MEAN CORPUSCULAR HEMOGLOBIN 31.8 pg (27.0-33.0); MEAN CORPUSCULAR HGB CONC 34.4 g/dl (32.0-36.5); MEAN CORPUSCULAR VOLUME 92.2 fl (80.0-96.0); MONO # 0.5 K/mm3 (0.0-0.8); MONO % 3.6 % (0.0-5.0); NEUTROPHILS # 11.1 K/mm3 (1.8-7.7); NEUTROPHILS % 86.7 % (36.0-66.0); PLATELET COUNT, AUTOMATED 423 k/mm3 (150-450); RED CELL DISTRIBUTION WIDTH 13.2 % (11.5-14.5); WHITE BLOOD COUNT 12.8 K/mm3 (4.0-10.0)
[2016-07-26 08:52] LABS: ALBUMIN 3.3 GM/DL (3.2-5.2); ALBUMIN/GLOBULIN RATIO 0.87 (1.00-1.93); ALKALINE PHOSPHATASE 83 U/L (45-117); ALT/SGPT 18 U/L (12-78); ANION GAP 5 MEQ/L (8-16); AST/SGOT 11 U/L (15-37); BILIRUBIN,TOTAL 0.2 MG/DL (0.2-1.0); BLOOD UREA NITROGEN 11 MG/DL (7-18); CALCIUM LEVEL 9.7 MG/DL (8.8-10.2); CARBON DIOXIDE LEVEL 30 MEQ/L (21-32); CHLORIDE LEVEL 96 MEQ/L (98-107); CREATININE FOR GFR 0.42 MG/DL (0.55-1.02); GLOMERULAR FILTRATION RATE > 60.0 (>45); GLUCOSE, FASTING 133 MG/DL (80-110); MAGNESIUM LEVEL 2.1 MG/DL (1.8-2.4); POTASSIUM SERUM 3.8 MEQ/L (3.5-5.1); SODIUM LEVEL 131 MEQ/L (136-145); TOTAL PROTEIN 7.1 GM/DL (6.4-8.2)
[2016-07-26] MEDS: MONTELUKAST 10 MG TAB PO SCH (09:05)
[2016-07-26] MEDS: HumaLOG INSULIN (NovoLOG) PER UNIT SC SCH ×4 (09:05→21:00)
[2016-07-26] MEDS: ENOXAPARIN 40 MG/0.4 ML SYRINGE (J1650) SC SCH (09:06)
[2016-07-26] MEDS: ACETAMINOPHEN TAB 650MG DOSE (2X325MG) PO PRN ×2 (09:20→21:59)
[2016-07-26] MEDS: IPRATROPIUM 0.5MG/ALBUTEROL 2.5MG INH SOL UD 3ML (DUONEB)(J7620) NEB PRN ×2 (09:37→11:08)
[2016-07-26 10:06] LABS: CORTISOL AM 19.5 UG/DL (4.3-22.4)
--- NOTE | 2016-07-26 12:17 | IPNPDOC ---
Subjective Date Seen The patient was seen on 07/26/16. Subjective Chief Complaint/HPI The patient is a 61-year-old female admitted with a reason for visit of Hyponatremia. Events since last encounter no new events overnight , patient noncompliant with dietary fluid restriction. NO fever or chills, cough getting better, no sob , no nausea or vomiting or diarrhea Objective Physical Examination General Exam: Positive: Alert, Cooperative, No Acute Distress Eye Exam: Positive: PERRLA, Conjunctiva & lids normal, EOMI, Negative: Sclera icteric ENT Exam: Positive: Atraumatic, Mucous membr. moist/pink, Pharynx Normal Neck Exam: Positive: Supple, Negative: JVD, thyromegaly Chest Exam: Positive: Rales, Rhonchi, Diminished Heart Exam: Positive: Rate Normal, Regular Rhythm, Normal S1, Normal S2, Negative: Murmurs, Rubs Abdomen Exam: Positive: Normal bowel sounds, Soft, Negative: Tenderness, Hepatospenomegaly Extremity Exam: Positive: Normal pulses, Negative: Clubbing, Cyanosis, Edema Skin Exam: Positive: Nl turgor and temperature, Negative: Rash, Breakdown Assessment /Plan Problems (1) COPD exacerbation Status: Acute Problem Text: cxr with emphysema no acute changes, CT angio negative for PE. will continue with nebs, antibiotics and steroids. will get echo to evaluate for pulmonary hypertension and corpulmonale. (2) Hyperglycemia, drug-induced Problem Text: due to steroids, will place on sliding scale insulin. check fingerstick AC and HS. (3) Hyponatremia Status: Acute Problem Text: acute on chronic . 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 Also Patient drinks a lots of fluids will place the patient on regular diet with fluid restriction of 1.5 liters. TSH normal will check uric acid, am cortisol , urine electrolytes. (4) HTN (hypertension) Status: Chronic Problem Text: continue lisinopril. (5) History of hepatitis C Status: Chronic Plan/VTE VTE Prophylaxis Ordered?: Yes VS, I&O, 24H, Fishbone Vital Signs/I&O Vital Signs Date Time Temp Pulse Resp B/P (MAP) Pulse Ox O2 Delivery O2 Flow Rate FiO2 07/26/16 09:20 Room Air 07/26/16 08:00 98.5 93 22 108/65 (79) 93 07/25/16 14:00 2.0 I&O- Last 24 Hours up to 6 AM 07/26/16 06:00 Intake Total 1770 ml Output Total 400 ml Balance 1370 ml Laboratory Data 24H LABS Laboratory Tests 2 07/25/16 16:26: Bedside Glucose (Misc Panel) 183H 07/25/16 21:11: Bedside Glucose (Misc Panel) 327H 07/26/16 07:47: White Blood Count 12.8H, Red Blood Count 4.27, Hemoglobin 13.6, Hematocrit 39.4 , Mean Corpuscular Volume 92.2, Mean Corpuscular Hemoglobin 31.8, Mean Corpuscular Hemoglobin Concent 34.4, Red Cell Distribution Width 13.2, Platelet Count 423, Neutrophils (%) (Auto) 86.7H, Lymphocytes (%) (Auto) 8.9L, Monocytes (%) (Auto) 3.6, Eosinophils (%) (Auto) 0.1, Basophils (%) (Auto) 0.1, Neutrophils # (Auto) 11.1H, Lymphocytes # (Auto) 1.2L, Monocytes # (Auto) 0.5, Eosinophils # (Auto) 0.0, Basophils # (Auto) 0.0, Large Unclassified Cells % 0.6 , Large Unclassified Cells # 0.1, Anion Gap 5L, Glomerular Filtration Rate > 60.0, Blood Urea Nitrogen 11, Creatinine 0.42L, Sodium Level 131L, Potassium Level 3.8, Chloride Level 96L, Carbon Dioxide Level 30, Calcium Level 9.7, Aspartate Amino Transf (AST/SGOT) 11L, Alanine Aminotransferase (ALT/SGPT) 18, Alkaline Phosphatase 83, Total Bilirubin 0.2, Total Protein 7.1, Albumin 3.3, Magnesium Level 2.1, Albumin/Globulin Ratio 0.87L, Cortisol AM Sample 19.5 07/26/16 09:27: Urine Random Osmolality 662, Urine Random Sodium 21, Urine Random Potassium 33.9 CBC/BMP Laboratory Tests 07/26/16 07:47 Red Blood Count 4.27, Mean Corpuscular Volume 92.2, Mean Corpuscular Hemoglobin 31.8, Mean Corpuscular Hemoglobin Concent 34.4, Red Cell Distribution Width 13.2 , Neutrophils (%) (Auto) 86.7 H, Lymphocytes (%) (Auto) 8.9 L, Monocytes (%) ( Auto) 3.6, Eosinophils (%) (Auto) 0.1, Basophils (%) (Auto) 0.1, Neutrophils # ( Auto) 11.1 H, Lymphocytes # (Auto) 1.2 L, Monocytes # (Auto) 0.5, Eosinophils # (Auto) 0.0, Basophils # (Auto) 0.0, Calcium Level 9.7, Aspartate Amino Transf ( AST/SGOT) 11 L, Alanine Aminotransferase (ALT/SGPT) 18, Alkaline Phosphatase 83 , Total Bilirubin 0.2, Total Protein 7.1, Albumin 3.3 Microbiology Microbiology 07/24/16 Blood Culture - Preliminary, Resulted No growth after 24 hours . All specim... 07/24/16 Blood Culture - Preliminary, Resulted No growth after 24 hours . All specim... 07/24/16 Gram Stain - Final, Complete 07/24/16 Sputum Culture - Final, Complete 07/24/16 Influenza Virus Type A Antigen - Final, Complete 07/24/16 Influenza Virus Type B Antigen - Final, Complete BRIGIDO TIDWELL MD Jul 26, 2016 12:17
[2016-07-26 16:00] VITALS: BP 94/59
[2016-07-26 18:49] LABS: ANION GAP 5 MEQ/L (8-16); BLOOD UREA NITROGEN 15 MG/DL (7-18); CALCIUM LEVEL 9.1 MG/DL (8.8-10.2); CARBON DIOXIDE LEVEL 30 MEQ/L (21-32); CHLORIDE LEVEL 98 MEQ/L (98-107); CREATININE FOR GFR 0.47 MG/DL (0.55-1.02); GLOMERULAR FILTRATION RATE > 60.0 (>45); GLUCOSE, FASTING 167 MG/DL (80-110); POTASSIUM SERUM 3.9 MEQ/L (3.5-5.1); SODIUM LEVEL 133 MEQ/L (136-145)
[2016-07-26 20:00] VITALS: BP 120/72
[2016-07-26 20:50] VITALS: BP 120/72
[2016-07-26] MEDS: LISINOPRIL 10 MG TAB PO SCH (20:50)
[2016-07-26] MEDS: CETIRIZINE (ZyrTEC) 10 MG TAB PO SCH (20:50)
[2016-07-26] MEDS: cefTRIAXone SOD 2 GM in D5W MINI-BAG PLUS 50 ML IV SCH (20:51)
[2016-07-26] MEDS ORDERED: AZITHROMYCIN 250 MG TAB PO SCH (21:00)
[2016-07-27] MEDS: IPRATROPIUM 0.5MG/ALBUTEROL 2.5MG INH SOL UD 3ML (DUONEB)(J7620) NEB SCH ×2 (00:02→07:34)
[2016-07-27 00:12] VITALS: BP 120/78
[2016-07-27] MEDS: methylPREDNISolone INJ 40 MG/1 ML VIAL (J2920) IV SCH (06:16)
[2016-07-27 07:08] LABS: BASO % 0.1 % (0.0-1.0); EOS # 0.1 K/mm3 (0.0-0.50); EOS % 1.3 % (0.0-3.0); LARGE UNSTAINED CELL # 0.1 K/mm3 (0.0-0.4); LARGE UNSTAINED CELL % 0.7 % (0.0-4.0); LYMPH # 1.1 K/mm3 (1.5-4.5); LYMPH % 10.5 % (24.0-44.0); MEAN CORPUSCULAR HEMOGLOBIN 32.2 pg (27.0-33.0); MEAN CORPUSCULAR HGB CONC 34.4 g/dl (32.0-36.5); MEAN CORPUSCULAR VOLUME 93.6 fl (80.0-96.0); MONO # 0.4 K/mm3 (0.0-0.8); MONO % 4.3 % (0.0-5.0); NEUTROPHILS # 8.2 K/mm3 (1.8-7.7); NEUTROPHILS % 83.1 % (36.0-66.0); RED CELL DISTRIBUTION WIDTH 13.2 % (11.5-14.5); WHITE BLOOD COUNT 9.8 K/mm3 (4.0-10.0)
[2016-07-27 07:22] LABS: ALBUMIN 2.8 GM/DL (3.2-5.2); ALBUMIN/GLOBULIN RATIO 0.88 (1.00-1.93); ALKALINE PHOSPHATASE 65 U/L (45-117); ALT/SGPT 18 U/L (12-78); ANION GAP 6 MEQ/L (8-16); AST/SGOT 12 U/L (15-37); BILIRUBIN,TOTAL 0.2 MG/DL (0.2-1.0); BLOOD UREA NITROGEN 11 MG/DL (7-18); CALCIUM LEVEL 9.2 MG/DL (8.8-10.2); CARBON DIOXIDE LEVEL 27 MEQ/L (21-32); CHLORIDE LEVEL 98 MEQ/L (98-107); CREATININE FOR GFR 0.33 MG/DL (0.55-1.02); GLOMERULAR FILTRATION RATE > 60.0 (>45); GLUCOSE, FASTING 132 MG/DL (80-110); SODIUM LEVEL 131 MEQ/L (136-145)
[2016-07-27] MEDS: SYMBICORT 80/4.5MCG INHALER 6GM INH SCH (07:32)
[2016-07-27 08:00] VITALS: BP 133/65
[2016-07-27] MEDS ORDERED: PRED10TA PO (08:14)
[2016-07-27] MEDS: ENOXAPARIN 40 MG/0.4 ML SYRINGE (J1650) SC SCH (08:15)
[2016-07-27] MEDS: MONTELUKAST 10 MG TAB PO SCH (08:15)
[2016-07-27] MEDS: HumaLOG INSULIN (NovoLOG) PER UNIT SC SCH (08:16)
[2016-07-27] MEDS ORDERED: LEVO500T32 PO (08:16)
[2016-07-27 08:20] LABS: PLATELET COUNT, AUTOMATED 242 k/mm3 (150-450)
[2016-07-27] MEDS: ACETAMINOPHEN TAB 650MG DOSE (2X325MG) PO PRN (08:23)
[2016-07-27] MEDS ORDERED: predniSONE 20 MG TAB PO SCH (09:00)
[2016-07-28 00:06] LABS: ORGANISM ID Not indicated. (.); SPECIMEN SOURCE Urine (.)
--- NOTE | 2016-07-29 16:43 | DSES ---
DATE OF ADMISSION: 07/24/2016 DATE OF DISCHARGE: 07/27/2016 PRIMARY CARE PROVIDER: Barbara Echeverria. DISCHARGE DIAGNOSES: 1. Chronic obstructive pulmonary disease (COPD) exacerbation. 2. Acute bronchitis. 3. Acute on chronic hyponatremia, possibly related to syndrome of inappropriate secretion of antidiuretic hormone (SIADH), and recently started selective serotonin reuptake inhibitor (SSRI). 4. Drug-induced hyperglycemia due to steroids. 5. Hypertension. 6. Hepatitis C. 7. Chronic tobacco use. DISCHARGE MEDICATIONS: - levofloxacin 500 mg by mouth daily - prednisone tapering course - albuterol sulfate nebulizer every four hours as needed - albuterol sulfate MDI two puff inhalation every four hours as needed - Symbicort 80/4.5 two puffs twice a day - cetirizine 10 mg at bedtime - ibuprofen 800 mg by mouth every eight hours as needed for pain - ketotifen eye drops one drop both eyes twice a day - lisinopril 10 mg at bedtime - montelukast 10 mg daily - omeprazole 40 mg daily - vitamin D 50,000 units every two weeks HOSPITAL COURSE: This is a 61-year-old female who presented to the hospital with increasing cough, congestion and shortness of breath for one week. The patient was diagnosed with COPD exacerbation and acute bronchitis. The patient was also found to be hyponatremic with her sodium level lower than her baseline at 123. Her usual baseline is around 130. This was felt to be due to her new SSRI started, as well as excessive drinking of free water. She said that she drinks at least three liters of liquids per day, and sometimes more. Her SSRI was stopped and the patient was put on fluid restrictions with improvement of her sodium to her baseline level. The patient was instructed not to take the SSRI any longer and also instructed to follow the fluid restriction at home. The patient continues to be a smoker. Smoking cessation was discussed. The hyponatremia was felt to be due to SIADH. On the day of discharge, the patient's symptoms had almost resolved. The patient's vital signs were stable and the patient was functionally at baseline. PHYSICAL EXAMINATION: VITAL SIGNS: Temperature 98.5, pulse 81, respiratory rate 18, blood pressure 138/65, pulse of 20, 92% on room air. GENERAL: Patient awake, alert, and oriented times three sitting up in bed in no acute distress. HEENT: Normocephalic, atraumatic. Moist mucous membranes. Anicteric eyes. CHEST: Clear to auscultation. CARDIOVASCULAR: S1, S2, regular. No rub, murmur or gallop. ABDOMEN: Soft, nontender. Bowel sounds present. EXTREMITIES: No edema. LABORATORY DATA: WBC 9.8, hemoglobin 12.5, platelets 242. Sodium 131, potassium 4, chloride 98, bicarbonate 27, BUN 11, creatinine 0.3, glucose 132, calcium 9.2, magnesium 2. Liver function tests are normal. Urine osmolality 662, urine sodium 21, potassium 33. Uric acid 3.3. Urinary Legionella negative. Urinary strep antigen negative. DISPOSITION: The patient is discharged home in stable condition. DISCHARGE INSTRUCTIONS: The patient to followup with primary care provider in one week. Regular diet. Activity as tolerated. Fluid restriction 1.5 liters per day.
== END 2016-07-27 10:40 | disposition home or self-care (01) | DRG 140 ==
LOC: M ED 16:49 → M ED INP 19:25 → M MS4PR 20:19 → M PED 07-25 17:16
PROVIDERS: ADMIT Internal Medicine; ATTEND Internal Medicine Nephrology
DX: J44.0 Chronic obstructive pulmonary disease with (acute) lower respiratory infection (principal); J18.9 Pneumonia, unspecified organism; E22.2 Syndrome of inappropriate secretion of antidiuretic hormone; I10 Essential (primary) hypertension; J20.9 Acute bronchitis, unspecified; J30.9 Allergic rhinitis, unspecified; R73.9 Hyperglycemia, unspecified; F17.210 Nicotine dependence, cigarettes, uncomplicated; B18.2 Chronic viral hepatitis C; K21.9 Gastro-esophageal reflux disease without esophagitis; T38.0X5A Adverse effect of glucocorticoids and synthetic analogues, initial encounter; J44.1 Chronic obstructive pulmonary disease with (acute) exacerbation; F10.10 Alcohol abuse, uncomplicated; Z79.51 Long term (current) use of inhaled steroids; Z79.1 Long term (current) use of non-steroidal anti-inflammatories (NSAID); Z79.899 Other long term (current) drug therapy

== ENCOUNTER → 2017-02-15 | Outpatient (CLI) | payer OTHER ==
[2017-02-15 14:06] LABS: HEMOGLOBIN 12.1 g/dl (12.0-16.0); MEAN CORPUSCULAR HGB CONC 34.6 g/dl (32.0-36.5); MEAN CORPUSCULAR VOLUME 89.7 fl (80.0-96.0); PLATELET COUNT, AUTOMATED 212 10^3/uL (150-450); RED CELL DISTRIBUTION WIDTH 13.5 % (11.5-14.5); WHITE BLOOD COUNT 5.5 10^3/uL (4.0-10.0)
[2017-02-15 14:23] LABS: ALBUMIN 3.6 GM/DL (3.2-5.2); ALBUMIN/GLOBULIN RATIO 1.33 (1.00-1.93); ALKALINE PHOSPHATASE 68 U/L (45-117); ALT/SGPT 30 U/L (12-78); ANION GAP 9 MEQ/L (8-16); AST/SGOT 40 U/L (7-37); BILIRUBIN,TOTAL 0.2 MG/DL (0.2-1.0); BLOOD UREA NITROGEN 4 MG/DL (7-18); CALCIUM LEVEL 8.3 MG/DL (8.8-10.2); CARBON DIOXIDE LEVEL 26 MEQ/L (21-32); CHLORIDE LEVEL 101 MEQ/L (98-107); CHOLESTEROL LEVEL 171 MG/DL (<200); CHOLESTEROL RISK RATIO 1.762 (<5); CREATININE FOR GFR 0.26 MG/DL (0.55-1.02); GLOMERULAR FILTRATION RATE > 60.0 (>45); GLUCOSE, FASTING 72 MG/DL (80-110); HDL CHOLESTEROL 97 MG/DL (>40); LDL CHOLESTEROL 57.2 MG/DL (<100); NON-HDL-C 74 MG/DL; SODIUM LEVEL 136 MEQ/L (136-145); TOTAL PROTEIN 6.3 GM/DL (6.4-8.2); TRIGLYCERIDES LEVEL 84 MG/DL (<150)
[2017-02-15 15:11] LABS: HEPATITIS C VIRUS ABY INDEX 3.8 INDEX (<0.8)
[2017-02-20 00:07] LABS: HCV RNA NAA QUALITATIVE Negative (Negative)
== END ==
LOC: M LAB 12:56
DX: E78.2 Mixed hyperlipidemia (principal); J44.1 Chronic obstructive pulmonary disease with (acute) exacerbation; E55.9 Vitamin D deficiency, unspecified; Z86.39 Personal history of other endocrine, nutritional and metabolic disease; Z86.19 Personal history of other infectious and parasitic diseases
CPT/HCPCS: G0297

== ENCOUNTER 2017-05-25 16:21 | Emergency (ER) | payer OTHER ==
[2017-05-25] MEDS: predniSONE 20 MG TAB PO (16:53)
[2017-05-25] MEDS: IPRATROPIUM 0.5MG/ALBUTEROL 2.5MG INH SOL UD 3ML (DUONEB)(J7620) NEB (16:56)
[2017-05-25] MEDS: ALBUTEROL SULFATE 2.5 MG/0.5 ML INH NEB SOLN NEB (16:56)
[2017-05-25] MEDS: PENICILLIN V POTASSIUM 500 MG TAB PO (17:45)
== END 2017-05-25 17:48 | disposition home or self-care (01) ==
LOC: M ED 16:21
DX: J44.1 Chronic obstructive pulmonary disease with (acute) exacerbation (principal); J02.0 Streptococcal pharyngitis; I10 Essential (primary) hypertension; Z87.440 Personal history of urinary (tract) infections; F17.200 Nicotine dependence, unspecified, uncomplicated; J30.2 Other seasonal allergic rhinitis; Z79.899 Other long term (current) drug therapy; Z88.1 Allergy status to other antibiotic agents
CPT/HCPCS: 71046

== ENCOUNTER → 2017-06-18 | Outpatient (CLI) | payer OTHER ==
[~2017-06-18] MED LIST changes: -ALBU17IN INH; -ALBU83IN INH; -CETI10TA PO; -DRIS50002 PO; -FLUT1SPR2; -IBUP800T23 PO; +ISOVUE-370 76% 100ML VIAL (Q9967) As Ordered; -LEVA750T PO; -LISI10TA4 PO; -MEDR4PAK PO; -MONT10TA2 PO; -OMEP40CA2 PO; -SYMB80INH INH; -VENL37.598 PO
== END ==
LOC: M RAD 13:22
DX: R91.8 Other nonspecific abnormal finding of lung field (principal)
CPT/HCPCS: Q9967

== ENCOUNTER → 2017-12-09 | Outpatient (REF) | payer OTHER ==
[2017-12-09 15:52] LABS: ALBUMIN 4.1 GM/DL (3.2-5.2); ALBUMIN/GLOBULIN RATIO 1.32 (1.00-1.93); ALKALINE PHOSPHATASE 73 U/L (45-117); ALT/SGPT 16 U/L (12-78); ANION GAP 7 MEQ/L (8-16); AST/SGOT 18 U/L (7-37); BILIRUBIN,TOTAL 0.2 MG/DL (0.2-1.0); BLOOD UREA NITROGEN 6 MG/DL (7-18); CALCIUM LEVEL 9.4 MG/DL (8.8-10.2); CARBON DIOXIDE LEVEL 27 MEQ/L (21-32); CHLORIDE LEVEL 96 MEQ/L (98-107); CREATININE FOR GFR 0.38 MG/DL (0.55-1.30); GLOMERULAR FILTRATION RATE > 60.0 (>45); GLUCOSE, FASTING 71 MG/DL (70-100); POTASSIUM SERUM 4.4 MEQ/L (3.5-5.1); SODIUM LEVEL 130 MEQ/L (136-145); TOTAL PROTEIN 7.2 GM/DL (6.4-8.2)
== END ==
LOC: M SFHCPLAZ 13:50
DX: J44.1 Chronic obstructive pulmonary disease with (acute) exacerbation (principal)

== ENCOUNTER → 2018-01-22 | Outpatient (CLI) | payer OTHER | LOC: M WHC 13:29 | DX: Z12.31 Encounter for screening mammogram for malignant neoplasm of breast (principal); Z78.0 Asymptomatic menopausal state | CPT/HCPCS: 77067 ==

== ENCOUNTER → 2018-06-10 | Outpatient (REF) | payer OTHER ==
[~2018-06-10] MED LIST changes: +ALBU17IN INH; +ALBU83IN INH; +BRIN1TAB PO; +CETI10TA PO; +DRIS50003 PO; +FLUT1SPR2; +IBUP1TAB7 PO; -ISOVUE-370 76% 100ML VIAL (Q9967) As Ordered; +KETO0.02 OU; +LEVA750T7 PO; +LEVO500T3 PO; +LISI10TA4 PO; +MEDR4PAK PO; +MONT10TA2 PO; +OMEP40CA2 PO; +PENI500T PO; +PRED10TA2 PO; +PRED20TA PO; +SYMB80INH INH; +VENL37.598 PO
[2018-06-10 16:30] LABS: ALT/SGPT 15 U/L (12-78); BILIRUBIN,TOTAL 0.3 MG/DL (0.2-1.0); BLOOD UREA NITROGEN 9 MG/DL (7-18); CALCIUM LEVEL 9.1 MG/DL (8.8-10.2); CARBON DIOXIDE LEVEL 28 MEQ/L (21-32); CHLORIDE LEVEL 96 MEQ/L (98-107); CHOLESTEROL LEVEL 184 MG/DL (<200); CREATININE FOR GFR 0.46 MG/DL (0.55-1.30); GLOMERULAR FILTRATION RATE > 60.0 (>45); GLUCOSE, FASTING 97 MG/DL (70-100); HDL CHOLESTEROL 100 MG/DL (>40); LDL CHOLESTEROL 68 MG/DL (<100); NON-HDL-C 84 MG/DL; POTASSIUM SERUM 4.2 MEQ/L (3.5-5.1); SODIUM LEVEL 131 MEQ/L (136-145); TOTAL PROTEIN 7.4 GM/DL (6.4-8.2); TRIGLYCERIDES LEVEL 78 MG/DL (<150)
== END ==
LOC: M SFHCPLAZ 14:23
PROVIDERS: ATTEND Nurse Practitioner Adult Health
DX: Z00.00 Encounter for general adult medical examination without abnormal findings (principal); E78.2 Mixed hyperlipidemia; E55.9 Vitamin D deficiency, unspecified

== ENCOUNTER 2018-12-26 12:00 | Outpatient (RCR) | payer OTHER | END 2019-01-10 | LOC: M PT 12:00 | PROVIDERS: ATTEND Nurse Practitioner Adult Health | DX: Z51.89 Encounter for other specified aftercare (principal); M51.36 Other intervertebral disc degeneration, lumbar region; M54.32 Sciatica, left side; M54.31 Sciatica, right side ==

== ENCOUNTER → 2018-12-26 | Outpatient (CLI) | payer OTHER ==
[~2018-12-26] MED LIST changes: -OMEP40CA2 PO; +OMEP40CA97 PO
--- NOTE | 2018-12-26 15:12 | REP ---
HISTORY: History of degenerative disc disease. COMPARISON: A partial exam of 08/18/2014. There is a levoconvex thoracolumbar curve, status quo. Heavy partial syndesmophyte formation is again seen at all levels bilaterally, particularly on the right, status quo. The pedicles are again seen to be intact bilaterally. Vertebral body height is unchanged. There is no significant change in the appearance of the vertebral body alignment. Chronic L3 superior endplate changes are again noted, status quo. There is anterior lipping at every level. There is degenerative facet joint change seen bilaterally at every level. IMPRESSION: Chronic changes as described above. Electronically Signed by Avila Quinonez DO 12/26/2018 03:29 P
== END ==
LOC: M RAD 12:51
PROVIDERS: ATTEND Nurse Practitioner Adult Health
DX: M51.36 Other intervertebral disc degeneration, lumbar region (principal)

== ENCOUNTER 2019-01-13 18:20 | Inpatient (IN) | payer OTHER ==
[~2019-01-13] VITALS: Ht 154.9 cm; Wt 38.7 kg
[2019-01-13] MEDS: BENZONATATE 100 MG CAP PO SCH (02:54)
[2019-01-13] MEDS: CETIRIZINE (ZyrTEC) 10 MG TAB PO SCH (02:55)
[2019-01-13] MEDS: THIAMINE 100 MG TAB PO SCH (02:55)
[2019-01-13] MEDS ORDERED: DULO1CAP4 (18:36)
[2019-01-13] MEDS ORDERED: MORPHINE 2 MG/ML 1ML VIAL (J2270) IV ONE (19:30)
--- NOTE | 2019-01-13 19:42 | REP ---
Clinical: Trauma . Comparison: 05/25/2017 . Findings: The mediastinum and cardiac silhouette are stable and within normal limits for portable technique. The lung horton demonstrate diffuse chronic-appearing interstitial changes without acute consolidation, effusion, or pneumothorax. Skeletal structures are intact. Impression: No acute cardiopulmonary process appreciated. Electronically Signed by Rashaad Worley MD 01/13/2019 07:33 P
--- NOTE | 2019-01-13 19:43 | REP ---
Clinical: Trauma. Knee: Frontal view of the pelvis with AP and cross-table lateral views of the right hip. Findings: Comminuted intertrochanteric fracture of the right hip. Age-related osteopenia and degenerative changes noted. Evidence for peripheral vascular disease. Impression: Comminuted intertrochanteric fracture of the right hip. Electronically Signed by Rashaad Worley MD 01/13/2019 07:35 P
[2019-01-13 20:06] LABS: BASO % 0.3 % (0.0-1.0); EOS % 0.1 % (0.0-3.0); HEMATOCRIT 40.3 % (36.0-47.0); HEMOGLOBIN 13.7 g/dl (12.0-15.5); LYMPH # 1.1 10^3/uL (1.5-5.0); LYMPH % 9.2 % (24.0-44.0); MEAN CORPUSCULAR HEMOGLOBIN 31.1 pg (27.0-33.0); MEAN CORPUSCULAR VOLUME 91.4 fl (80.0-96.0); MONO # 0.9 10^3/uL (0.0-0.8); MONO % 7.8 % (0.0-5.0); NEUTROPHILS # 9.5 10^3/uL (1.5-8.5); NEUTROPHILS % 82.1 % (36.0-66.0); PLATELET COUNT, AUTOMATED 285 10^3/uL (150-450); RED BLOOD COUNT 4.41 10^6/uL (4.00-5.40); WHITE BLOOD COUNT 11.6 10^3/uL (4.0-10.0)
[2019-01-13] MEDS ORDERED: PROAAER10 INH (20:11)
[2019-01-13] MEDS ORDERED: FLUTISP NARES (20:15)
[2019-01-13] MEDS ORDERED: VITA50005 PO (20:15)
[2019-01-13 20:36] LABS: ALBUMIN 3.3 GM/DL (3.2-5.2); ALT/SGPT 23 U/L (12-78); BILIRUBIN,DIRECT 0.1 MG/DL (0.0-0.2); BILIRUBIN,TOTAL 0.4 MG/DL (0.2-1.0); BLOOD UREA NITROGEN 11 MG/DL (7-18); CALCIUM LEVEL 9.2 MG/DL (8.8-10.2); CARBON DIOXIDE LEVEL 21 MEQ/L (21-32); CHLORIDE LEVEL 98 MEQ/L (98-107); CPK CREATINE PHOSPHOKINASE 218 U/L (26-192); CREATININE FOR GFR 0.29 MG/DL (0.55-1.30); GLOMERULAR FILTRATION RATE > 60.0 (>45); GLUCOSE, FASTING 94 MG/DL (70-100); SODIUM LEVEL 133 MEQ/L (136-145); TOTAL PROTEIN 6.6 GM/DL (6.4-8.2)
[2019-01-13] MEDS: NS 1,000 ML IV SCH (20:45)
[2019-01-13] MEDS ORDERED: MORPHINE 2 MG/ML 1ML VIAL (J2270) IV PRN (20:45)
--- NOTE | 2019-01-13 20:49 | HPEPDOC ---
[facility] Medical History & Physical Date of Admission Jan 13, 2019 Date of Service: Jan 13, 2019 Primary Care Physician: Barbara Echeverria Attending Physician: Michael Mosher MD History and Physical TIME OF SERVICE: 8:56 PM CHIEF COMPLAINT: Difficulty walking HISTORY OF PRESENT ILLNESS: This is a 63 old female who presented with complaints of difficulty walking because of severe right-sided hip pain. Last night while trying to ambulate with a crutch, she slipped and fell. She uses a crutch because she has sciatica. Despite receiving 2 doses of morphine, she is still complaining of severe pain. She denies having chest pain, nausea, vomiting, fever, chills, diarrhea, chest pain, or dizziness prior to the fall. She has been coughing more than usual and thinks her COPD may be acting up. REVIEW OF SYSTEMS: 12 point review of systems negative except as listed in HPI PAST MEDICAL/ SURGICAL HISTORY: COPD Chronic CAD./ [place] Anxiety/depression History of hepatitis C Chronic hypertension. ? Status post tonsillectomy. Status post Status post tubal ligation SOCIAL HISTORY: Tobacco abuse History of alcohol abuse FAMILY HISTORY: Mother had Parkinson's & Diabetes ALLERGIES: Please see below. HOME MEDICATIONS: Please see below. PHYSICAL EXAMINATION: VITAL SIGNS: Please see below. GENERAL APPEARANCE: Slim build, well-developed, appears to be in pain HEENT: Cephalic, atraumatic. Mucous membranes moist and pink. CARDIOVASCULAR: Regular rate and rhythm. No murmurs, rubs or gallops LUNGS: She is coughing occasionally. She is able to speak full sentences without having to stop to take a breath. Chest equal air entry bilaterally, but there is and expiratory wheezing ABDOMEN: The abdomen is soft and nontender on palpation MUSCULOSKELETAL: And motion intact in all 4 extremities except for right hip were range of motion is limited due to pain INTEGUMENT: She does not appear jaundiced NEUROLOGICAL:. Cranial nerves II-12 are grossly intact. Speech is not dysarthric PSYCHIATRIC: Alert and oriented to person, place and time, able to understand and follow commands LABORATORY DATA: See below. IMAGING: X-ray of hip " Impression: Comminuted intertrochanteric fracture of the right hip." Chest x-ray " Impression: No acute cardiopulmonary process appreciated." MICROBIOLOGY: Please see below. ASSESSMENT: Ms. Ziegler is a 63 old yr old with a past medical history of chronic CAD, COPD, chronic hypertension, hepatitis C, anxiety and depression who will be admitted for management of a right hip fracture and mild COPD exacerbation. PLAN: 1. Right hip Fracture due to mechanical fall At her baseline. She has difficulties walking because of sciatica Plan: Admit to PCU bc she will be receiving fentanyl to control her pain / /fall precautions/ NPO after midnight w IVF for surgery possibly tomorrow / follow-up with Dr. Armas in the morning / physical therapy consult to determine if he needs inpatient rehabilitation versus placement in an assisted living facility / hold cetirizine 2. Osteoporosis. By definition she has osteoporosis because of fragility fracture. Her risk factors include gender her age and her low BMI Plan: She can have the workup for osteoporosis an outpatient basis (ie DEXA (if T score less than -3 will need Endo referral to start Forteo), BMP to calculate CrCl BMP to calculate CrCl prior to selecting bisphosphonate or Denosumab, TSH, Calcium, 25-OH Vitamin D, Urine calcium) 3. Mild COPD exacerbation Likely due to viral infection Chest x-ray was unrevealing. EKG showed sinus rhythm with a heart rate of 108 Plan:supplemental O2 OR BiPAP / continuous pulse oximetry / aspiration precautions / f/u respiratory panel / Dunebs Q6H, Albuterol Q1HP, Solu-Medrol right now, can switch to Prednisone tomorrow + PPI,/no need for antibiotics because her cough is dry , Tessalon Pearls / hold home inhalers 3. Tobacco abuse. Plan: Smoking cessation education 4. History of alcohol abuse Plan: CIWA protocol 5. Preoperative Assessment Her Revised Cardiac Index score to asses risk of MACE from surgery Score is 1 (bc of the hx of [place]) Plan: treat acute COPD / based on her RCI score we will order a pro-BNP if it is less than 300, she will not require additional testing prior to surgery) / discontinue Ibuprofen DVT prophylaxis with SCDs Disposition likely home after more than 2 midnight stay Vital Signs Vital Signs Date Time Temp Pulse Resp B/P (MAP) Pulse Ox O2 Delivery O2 Flow Rate FiO2 01/13/19 20:20 109 16 98 01/13/19 20:19 107/70 (82) 01/13/19 18:35 99.0 Room Air Laboratory Data Labs 24H Laboratory Tests 2 01/13/19 19:53: Immature Granulocyte % (Auto) 0.5, Neutrophils (%) (Auto) 82.1H, Lymphocytes (%) (Auto) 9.2L, Monocytes (%) (Auto) 7.8H, Eosinophils (%) (Auto) 0.1, Basophils (%) (Auto) 0.3, Neutrophils # (Auto) 9.5H, Lymphocytes # (Auto) 1.1L, Monocytes # (Auto) 0.9H, Eosinophils # (Auto) 0.0, Basophils # (Auto) 0.0, Nucleated Red Blood Cells % (auto) 0.0, Anion Gap 14, Glomerular Filtration Rate > 60.0, Calcium Level 9.2, Total Bilirubin 0.4, Direct Bilirubin 0.1, Aspartate Amino Transf (AST/SGOT) 29, Alanine Aminotransferase (ALT/SGPT) 23, Alkaline Phosphatase 109, Total Creatine Kinase 218H, Total Protein 6.6, Albumin 3.3, Albumin/Globulin Ratio 1.00 CBC/BMP Laboratory Tests 01/13/19 19:53 Home Medications Scheduled Budesonide/Formoterol (Symbicort 80-4.5 Mcg Inhaler) 60 Puff/Inhaler Aers, 2 PUFF INH BID Cetirizine HCl (Cetirizine HCl) 10 Mg Tab, 10 MG PO QHS Ergocalciferol (Vitamin D2) (Vitamin D2) 50,000 Unit Capsule, 50,000 UNIT PO EVERY OTHER WEEK Montelukast Sodium (Montelukast Sodium) 10 Mg Tab, 10 MG PO DAILY Scheduled PRN Albuterol Sulf (Albuterol Sulfate) 2.5 Mg/3 Ml Nebu, 2.5 MG INH Q4H PRN for SHORTNESS OF BREATH Albuterol Sulfate (Proair Hfa) 8.5 Gm Hfa.aer.ad, 2 PUFF INH Q4H PRN for SOB/WHEEZING Fluticasone Propionate (Fluticasone Propionate) 16 Gm [place].susp, 1 SPRAY NARES BID PRN for CONGESTION Ibuprofen (Ibuprofen) 800 Mg Tab, 800 MG PO Q8H PRN for PAIN Ketotifen Fumarate (Ketotifen Fumarate) 0.025 % Tod, 1 DROP OU BID PRN for ITCHING Omeprazole (Omeprazole) 40 Mg Cap, 40 MG PO QPM PRN for HEARTBURN/INDIGESTION @ DINNERTIME Allergies Coded Allergies: ENVIROMENTAL (Verified Allergy, Unknown, 01/11/15) Sulfa (Sulfonamide Antibiotics) (Verified Allergy, Unknown, 01/13/19) A-FIB/CHADSVASC A-FIB History Current/History of A-Fib/PAF?: No Current PO Anticoag Therapy: No FABIAN SUTTON MD Jan 13, 2019 20:49
[2019-01-13] MEDS ORDERED: methylPREDNISolone INJ 125 MG/2 ML VIAL (J2930) IV STA (21:06)
[2019-01-13] MEDS ORDERED: ALBUTEROL SULFATE 2.5 MG/0.5 ML INH NEB SOLN NEB PRN (21:15)
[2019-01-13 22:00] VITALS: BP 121/79
[2019-01-13 22:20] VITALS: BP 112/71
[2019-01-13] MEDS: PANTOPRAZOLE 40MG INJ (PROTONIX) (C9113) IV SCH (23:48)
[2019-01-13] MEDS: fentaNYL 100 MCG/2 ML INJECTION (J3010) IV PRN (23:49)
[2019-01-14] VITALS (23 sets, daily range): BP systolic 109–132; BP diastolic 65–93; O2SAT 92–98
[2019-01-14] MEDS: IPRATROPIUM 0.5MG/ALBUTEROL 2.5MG INH SOL UD 3ML (DUONEB)(J7620) NEB SCH ×4 (01:25→19:30)
[2019-01-14] MEDS ORDERED: LORazepam 2 MG TAB PO PRN (02:15)
[2019-01-14] MEDS ORDERED: FLUTICASONE PROP 0.05% NASAL SPRAY 16 GM (FLONASE) NARES PRN (02:15)
[2019-01-14 02:40] LABS: NT-PRO BNP 304 PG/ML (<125)
[2019-01-14] MEDS: fentaNYL 100 MCG/2 ML INJECTION (J3010) IV PRN ×7 (02:47→23:41)
[2019-01-14 05:38] LABS: HEMATOCRIT 36.6 % (36.0-47.0); HEMOGLOBIN 12.6 g/dl (12.0-15.5); MEAN CORPUSCULAR HEMOGLOBIN 31.2 pg (27.0-33.0); MEAN CORPUSCULAR HGB CONC 34.4 g/dl (32.0-36.5); MEAN CORPUSCULAR VOLUME 90.6 fl (80.0-96.0); PLATELET COUNT, AUTOMATED 266 10^3/uL (150-450); RED BLOOD COUNT 4.04 10^6/uL (4.00-5.40); WHITE BLOOD COUNT 10.1 10^3/uL (4.0-10.0)
[2019-01-14 05:58] LABS: INR 1.07; PROTHROMBIN TIME 13.6 SECONDS (11.8-14.0)
[2019-01-14 05:59] LABS: BLOOD UREA NITROGEN 10 MG/DL (7-18); CALCIUM LEVEL 8.7 MG/DL (8.8-10.2); CARBON DIOXIDE LEVEL 22 MEQ/L (21-32); CHLORIDE LEVEL 100 MEQ/L (98-107); CREATININE FOR GFR 0.33 MG/DL (0.55-1.30); GLOMERULAR FILTRATION RATE > 60.0 (>45); GLUCOSE, FASTING 160 MG/DL (70-100); POTASSIUM SERUM 3.9 MEQ/L (3.5-5.1); SODIUM LEVEL 134 MEQ/L (136-145)
[2019-01-14] MEDS ORDERED: ceFAZolin SOD 2 GM in IV 1 EA IV SCH (06:00)
[2019-01-14] MEDS: SYMBICORT 80/4.5MCG INHALER 6GM INH SCH ×2 (07:40→19:30)
[2019-01-14] MEDS: PANTOPRAZOLE 40MG INJ (PROTONIX) (C9113) IV SCH (09:41)
[2019-01-14] MEDS: predniSONE 20 MG TAB PO SCH (09:41)
[2019-01-14] MEDS: MULTIVITAMINS/MINERALS THERAP 1 TAB PO SCH (09:41)
[2019-01-14] MEDS: FOLIC ACID 1 MG TAB PO SCH (09:42)
[2019-01-14] MEDS: THIAMINE 100 MG TAB PO SCH ×2 (09:42→20:20)
[2019-01-14] MEDS: MONTELUKAST 10 MG TAB PO SCH (09:42)
[2019-01-14] MEDS: BENZONATATE 100 MG CAP PO SCH ×3 (09:42→20:20)
--- NOTE | 2019-01-14 15:38 | ECGEPIP ---
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
[2019-01-14] MEDS: NS 1,000 ML IV SCH (15:49)
--- NOTE | 2019-01-14 16:20 | IPNPDOC ---
Text Note Date of Service The patient was seen on 01/14/19. NOTE SUBJECTIVE: -Feels ok this morning, she has pain when she attempts to move the right hip but otherwise feels ok when still in bed OBJECTIVE: VITAL SIGNS: Please see below. Hemodynamically stable and afebrile GENERAL APPEARANCE: Thin, well-developed, appears comfortable, pleasant HEENT: NCAT, PERRLA, EOMI, MMM CARDIOVASCULAR: RRR. No murmurs, rubs or gallops LUNGS: Has end expiratory wheezing, otherwise without crackles or rhonchi and speaking in full sentences ABDOMEN: Normoactive, soft, NTND MUSCULOSKELETAL: Moves all 4 extremities except for right hip whose ROM is limited by pain NEUROLOGICAL:. AOx3, clear speech, CN2-12 intact and moving all extremities spontaneously except for R hip from pain PSYCHIATRIC: Alert and oriented to person, place and time, able to understand and follow commands LABORATORY DATA: See below. IMAGING: X-ray of hip " Impression: Comminuted intertrochanteric fracture of the right hip." Chest x-ray " Impression: No acute cardiopulmonary process appreciated." ASSESSMENT: 63 old W with CAD, COPD, chronic hypertension, HCV infection, anxiety and depression who was admitted for management of a right hip fracture and mild COPD exacerbation, pending hip surgery tomorrow. PLAN: 1. Right hip Fracture due to mechanical fall At her baseline. She has difficulties walking because of sciatica Plan: Admit to PCU bc she will be receiving fentanyl to control her pain / /fall precautions/ NPO after midnight w IVF for surgery possibly tomorrow / follow-up with Dr. Coronado in the morning / physical therapy consult to determine if he needs inpatient rehabilitation versus placement in an assisted living facility / hold cetirizine 2. Osteoporosis. By definition she has osteoporosis because of fragility fracture. Her risk factors include gender her age and her low BMI Plan: She can have the workup for osteoporosis an outpatient basis (ie DEXA (if T score less than -3 will need Endo referral to start Forteo), BMP to calculate CrCl BMP to calculate CrCl prior to selecting bisphosphonate or Denosumab, TSH, Calcium, 25-OH Vitamin D, Urine calcium) 3. Mild COPD exacerbation: Likely due to viral infection -Chest x-ray was unrevealing. -EKG showed sinus rhythm Plan:supplemental O2 / Dunebs Q6H, Albuterol Q4HP/ Prednisone 40 + PPI/ Tessalon Pearls / hold home inhalers 3. Tobacco abuse. Plan: Smoking cessation education -Agreeable to nicotine patch 21mg 4. History of alcohol abuse -CIPR protocol 5. Preoperative Assessment Her Revised Cardiac Index score to asses risk of MACE from surgery Score is 1 (bc of the hx of [place]) Plan: treat acute COPD / based on her RCI score did pro-BNPthat was less than 300, she will not require additional testing prior to surgery / discontinue Ibuprofen DVT prophylaxis with SCDs Dispo: pending surgery VS,Fishbone, I+O VS, Fishbone, I+O Laboratory Tests 01/13/19 19:53 01/14/19 05:26 Vital Signs Date Time Temp Pulse Resp B/P (MAP) Pulse Ox O2 Delivery O2 Flow Rate FiO2 01/14/19 15:56 2.0 01/14/19 15:55 106 01/14/19 15:45 18 93 Nasal Cannula 01/14/19 11:42 98.1 I&O- Last 24 Hours up to 6 AM 01/14/19 06:00 Intake Total 150 ml Output Total 1860 ml Balance -1710 ml LAZARA PARSON MD Jan 14, 2019 16:20
[2019-01-14] MEDS: CETIRIZINE (ZyrTEC) 10 MG TAB PO SCH (20:20)
[2019-01-15] VITALS (23 sets, daily range): BP systolic 105–134; BP diastolic 4–84; O2SAT 87–99
[2019-01-15] MEDS: IPRATROPIUM 0.5MG/ALBUTEROL 2.5MG INH SOL UD 3ML (DUONEB)(J7620) NEB SCH ×4 (02:00→20:00)
[2019-01-15] MEDS: fentaNYL 100 MCG/2 ML INJECTION (J3010) IV PRN ×3 (02:12→08:20)
[2019-01-15] MEDS: SYMBICORT 80/4.5MCG INHALER 6GM INH SCH ×2 (07:22→20:43)
[2019-01-15] MEDS: FOLIC ACID 1 MG TAB PO SCH (08:21)
[2019-01-15] MEDS: PANTOPRAZOLE 40MG INJ (PROTONIX) (C9113) IV SCH (08:21)
[2019-01-15] MEDS: predniSONE 20 MG TAB PO SCH (08:21)
[2019-01-15] MEDS: MONTELUKAST 10 MG TAB PO SCH (08:21)
[2019-01-15] MEDS: THIAMINE 100 MG TAB PO SCH ×2 (08:21→20:20)
[2019-01-15] MEDS: MULTIVITAMINS/MINERALS THERAP 1 TAB PO SCH (08:21)
[2019-01-15] MEDS: BENZONATATE 100 MG CAP PO SCH ×3 (08:21→20:19)
[2019-01-15] MEDS: NICOTINE 21MG/24HR 1 EA TRANSDERMAL TD SCH (08:29)
--- NOTE | 2019-01-15 08:39 | HPE ---
DATE OF ADMISSION: 01/13/2019 CHIEF COMPLAINT: Right hip fracture. HISTORY OF PRESENT ILLNESS: This 63-year-old female presented to the hospital for right-sided hip fracture. She was trying to ambulate with a crutch because she has sciatica. She had a ground level fall. She denied chest pain, shortness of breath, dizziness or any other symptoms leading up to her fall. She was not having antecedent hip pain. PAST MEDICAL HISTORY: Chronic obstructive pulmonary disease (COPD). Chronic coronary artery disease (CAD)/myocardial infarction ([place]). Anxiety/depression. Hepatitis C. Chronic hypertension. Post tonsillectomy. Post . Post tubal ligation. HOME MEDICATIONS: - budesonide/formoterol - sertraline - ergocalciferol - montelukast - scheduled p.r.n. albuterol, fluticasone, ibuprofen, ketotifen fumarate, omeprazole. ALLERGIES: 1. Environmental. 2. SULFA. SOCIAL HISTORY: She uses tobacco, smokes cigarettes. History of alcohol abuse. PHYSICAL EXAMINATION: Well-appearing 63-year-old female. Vital signs are stable. Temperature 97.7. Blood pressure 120/70, pulse oximetry 95% on 2 liters. Respiratory rate 20, pulse rate 86. She is alert and oriented times three. Mood and affect pleasant, positive. She is sitting supine. Lower extremities are neurovascularly intact. Normal sensation throughout the feet. Feet are warm and well perfused with good pedal pulses. She is able wiggle her toes, dorsiflex and plantar flex foot. No other pain distal to the knee on the left hip. Laboratory examination revealed hemoglobin to 13.7. INR 1.07 and PT 13.6. Hip x-rays revealed an intertrochanteric hip fracture on the right side. This appears to be a two-part fracture, possibly three-part with some comminution at the greater trochanter. ASSESSMENT/PLAN: This 63-year-old female has a right-sided intertrochanteric hip fracture. We talked about the pros, cons, risks and benefits of doing nothing versus open reduction internal fixation with cephalomedullary implant. Specific risks include, but are not limited to, infection, pain, stiffness, bleeding, neurovascular injury, delayed mal or nonunion as well as anesthetic complications, blood clots and . She wished to go ahead. We signed the consent form as well as marked the right lower extremity. We will attempt to do this in the next 48 hours. She will be managed by the hospitalist and will be made n.p.o. for surgery.
[2019-01-15] MEDS ORDERED: IPRATROPIUM 0.5MG/ALBUTEROL 2.5MG INH SOL UD 3ML (DUONEB)(J7620) As Ordered ONE (11:11)
[2019-01-15] MEDS ORDERED: KETAMINE HCL 200 MG/20 ML VIAL As Ordered ONE (11:16)
[2019-01-15] MEDS ORDERED: MIDAZOLAM INJ 2 MG/2 ML VIAL (J2250) As Ordered ONE (11:16)
[2019-01-15] MEDS ORDERED: PROPOFOL 200 MG/20 ML VIAL As Ordered ONE (11:17)
[2019-01-15] MEDS ORDERED: TRANEXAMIC ACID 100 MG/ML 10ML VIAL As Ordered ONE (11:19)
[2019-01-15] MEDS ORDERED: ceFAZolin 1GM INJ (J0690 PER 500MG) As Ordered ONE (11:19)
[2019-01-15] MEDS ORDERED: IPRATROPIUM 0.5MG/ALBUTEROL 2.5MG INH SOL UD 3ML (DUONEB)(J7620) INH ONE (11:30)
--- NOTE | 2019-01-15 11:34 | IPNPDOC ---
Text Note Date of Service The patient was seen on 01/15/19. NOTE SUBJECTIVE: -Feels ok this morning, is hopeful about surgery today OBJECTIVE: VITAL SIGNS: Please see below. Hemodynamically stable and afebrile GENERAL APPEARANCE: NAD HEENT: NCAT, PERRLA, EOMI, MMM CARDIOVASCULAR: RRR. No murmurs, rubs or gallops LUNGS: No wheezing this morning, otherwise without crackles or rhonchi and speaking in full sentences ABDOMEN: Normoactive, soft, NTND MUSCULOSKELETAL: Moves all 4 extremities except for right hip whose ROM is limited by pain NEUROLOGICAL:. AOx3, clear speech, CN2-12 intact, R hip w/ pain PSYCHIATRIC: Alert and oriented to person, place and time, able to understand and follow commands LABORATORY DATA: Reviewed: WBC 10, stable H/H within normal range, Cr 0.33 IMAGING: X-ray of hip " Impression: Comminuted intertrochanteric fracture of the right hip." Chest x-ray " Impression: No acute cardiopulmonary process appreciated." ASSESSMENT: 63 old W with CAD, COPD, chronic hypertension, HCV infection, anxiety and depression who was admitted for management of a right hip fracture and mild COPD exacerbation, pending hip surgery today. PLAN: 1. Right hip Fracture due to mechanical fall -At her baseline has difficulties walking because of sciatica -NPO for surgery today -physical therapy as tolerated -pain management going well 2. Osteoporosis. By definition she has osteoporosis because of fragility fracture. Her risk factors include gender her age and her low BMI Plan: She can have the workup for osteoporosis an outpatient basis (ie DEXA (if T score less than -3 will need Endo referral to start Forteo), BMP to calculate CrCl BMP to calculate CrCl prior to selecting bisphosphonate or Denosumab, TSH, Calcium, 25-OH Vitamin D, Urine calcium) 3. Mild COPD exacerbation: Likely due to viral infection -Chest x-ray was unrevealing. -EKG showed sinus rhythm -supplemental O2 / Dunebs Q6H, Albuterol Q4HP/ Prednisone 40 + PPI/ Tessalon Pearls / hold home inhalers 3. Tobacco abuse. Plan: Smoking cessation education -Agreeable to nicotine patch 21mg 4. History of alcohol abuse -CIWA protocol 5. Preoperative Assessment Her Revised Cardiac Index score to asses risk of MACE from surgery Score is 1 (bc of the of [place]) Plan: treat acute COPD / based on her RCI score did pro-BNPthat was less than 300, she will not require additional testing prior to surgery / discontinue Ibuprofen DVT prophylaxis with SCDs Dispo: pending surgery VS,Fishbone, I+O VS, Fishbone, I+O Vital Signs Date Time Temp Pulse Resp B/P (MAP) Pulse Ox O2 Delivery O2 Flow Rate FiO2 01/15/19 07:08 97.9 90 22 110/66 (81) 92 Nasal Cannula 2.0 I&O- Last 24 Hours up to 6 AM 01/15/19 06:00 Intake Total 2550 ml Output Total 1480 ml Balance 1070 ml LAZARA PARSON MD Jan 15, 2019 08:05
[2019-01-15] MEDS ORDERED: ceFAZolin 2 GM/D5W 50 ML IV BAG (J0690 PER 500MG) As Ordered ONE (11:44)
[2019-01-15] MEDS ORDERED: PHENYLephrine HCL 500 MCG/5 ML (100MCG/ML) SYRINGE (J2370) As Ordered ONE (12:15)
[2019-01-15] MEDS ORDERED: ePHEDrine SULFATE 25 MG/5 ML(5MG/ML) SYRINGE As Ordered ONE (12:41)
[2019-01-15] MEDS ORDERED: LR 1,000 ML IV SCH ×2 (13:45→15:30)
[2019-01-15] MEDS ORDERED: ONDANSETRON 4MG/2ML VIAL (J2405) IV PRN ×2 (13:45)
[2019-01-15] MEDS ORDERED: ONDANSETRON 4 MG TAB (S0181) PO PRN (13:45)
[2019-01-15] MEDS ORDERED: fentaNYL 100 MCG/2 ML INJECTION (J3010) IV PRN (13:45)
[2019-01-15] MEDS ORDERED: PERCOCET 5MG/325MG TAB PO PRN (13:45)
[2019-01-15] MEDS ORDERED: ACETAMINOPHEN TAB 650MG DOSE (2X325MG) PO PRN (13:45)
--- NOTE | 2019-01-15 14:06 | REP ---
C-ARM VIEWS RIGHT FEMUR: Five C-arm views of the right femur are performed. There is placement of an intramedullary sil. Fracture of the proximal femur is well aligned. 3 minutes 26 seconds fluoroscopy time utilized. Electronically Signed by Jameson Rosales MD 01/15/2019 04:48 P
[2019-01-15] MEDS: PERCOCET 5MG/325MG TAB PO PRN ×2 (16:04→20:20)
[2019-01-15] MEDS: CETIRIZINE (ZyrTEC) 10 MG TAB PO SCH (20:19)
[2019-01-16] MEDS: MORPHINE 2 MG/ML 1ML VIAL (J2270) IV PRN ×2 (00:36→04:03)
[2019-01-16] MEDS: IPRATROPIUM 0.5MG/ALBUTEROL 2.5MG INH SOL UD 3ML (DUONEB)(J7620) NEB SCH ×4 (02:00→19:47)
--- NOTE | 2019-01-16 02:37 | RO ---
DATE OF PROCEDURE: 01/15/2019 PREOPERATIVE DIAGNOSIS: Right hip fracture. POSTOPERATIVE DIAGNOSIS: Right hip fracture (intertrochanteric). PLANNED PROCEDURE: Right hip intramedullary nail. PROCEDURE PERFORMED: Right hip intramedullary nail. SURGEON: Dr. Jamil Armas WEIGHT CONTROL ENGINEER: [employer] ENGINEER: Dr. Resendiz TYPE OF ANESTHETIC: Spinal. OPERATIVE PREAMBLE: This 63-year-old female had a mechanical fall. She sustained an intertrochanteric hip fracture. We talked about the pros, cons, risks, and benefits of doing nothing versus going ahead with open reduction, internal fixation in the form of an intramedullary (IM) nail. I marked the right side. I reiterated the risks in preoperative holding, and we proceeded to surgery. DESCRIPTION OF PROCEDURE: Patient was brought to the operating theater. They were administered spinal anesthetic. 2 grams of IV Ancef and 2 grams of IV tranexamic acid were both administered prior to the start of the case. Patient was placed supine on the fracture table with right leg in traction. Left leg was scissored in extension and attached to the middle bar of the traction table with a pillow protecting the knee and overwrapped with Coban. Traction and internal rotation was placed on the right lower extremity. All bony prominences were padded. Shawna Hugger was used. AP and lateral radiographs were taken to confirm appropriate reduction and fracture table setup. Lower extremity was prepped and draped in the usual sterile fashion. Prep solution on and thoroughly dried prior to the start of draping with the shower curtain style drape. Preoperative time-out was performed to confirm the site, the patient, and the surgery. We began by making a 2-inch incision centered three fingerbreadths proximal on each side at the level of greater trochanter of the lateral aspect of the hip. I carried this dissection down through the skin and subcutaneous tissue. I used the 3.2 mm partially threaded guidewire at the tip of the greater trochanter aiming towards the lesser trochanter and in line with femoral shaft on lateral radiographs. I used the entry reamer over top of this once the guidewire was in appropriate position. These were removed and the ball-tip guidewire advanced. Soft tissue protector was used throughout the remaining and passing the ball-tip guidewire. This was passed down to the distal end of the femur and center/center on AP and lateral radiographs. Sequential reaming was used up to a size 12.5 mm. I then selected an 11 mm in diameter 125-degree Synthes TFNA nail, right sided. I used a 340 mm long nail. This was slid down to appropriate depth. Then the drop-down guide was used and again percutaneous technique employed. I used a bone hook to try and reduce slight amount of valgus of the fracture site and gaping in the medial calcar area. I then passed the guidewire center/center on both femoral neck and head as best as possible given her anatomy, entering slightly inferior and posterior. Inserted this down to subchondral bone. I used near-far technique and live fluoroscopy to ensure that it was appropriate depth. This was measured to be approximately 85 mm. We began inserting an 85 mm helical blade overtop of the guidewire, but this appeared to be slightly too long so we removed that and then chose an 80 mm long helical blade. This was appropriate depth and again did the near-far technique to ensure that it was seated to appropriate depth. Nail was locked proximally and then backed off a quarter turn in order to place the nail in compression mode. Drop-down guide was removed. Ball-tip guidewire was removed prior to passing of the guidewire and helical blade. I then turned my attention distally. Using percutaneous technique and perfect pokagon technique, I inserted two locking screws in the proximal hole and oblong hole. These measured 40 mm and 44 mm in length and were both 5.0 mm fully threaded screws. Guide was removed proximally. Final radiographs were taken in AP/lateral along the proximal and distal end of the nail. Reduction appeared adequate. Incisions were thoroughly irrigated. Subcutaneous tensor fascia nadya was closed with interrupted #1-0 Vicryl suture. Subcutaneous tissue was closed with #2-0 Vicryl suture in interrupted fashion. Skin was cleaned with wet-to-dry dressing. [place] were used to close the skin. Xeroform 4 x 8 gauze as well as ABD dressing and cloth tape were used in a bulky dressing fashion over top of the incision sites. The patient was taken out of the traction setup, transferred off the operating table, and taken to the postanesthetic care unit in stable condition. All sponge counts, needle counts, instrument counts were correct. Estimated blood loss 100 mL. PLAN: For the patient is to be weightbearing as tolerated. See the physical therapist while admitted to the hospital to help for mobilization as well as discharge planning. Venous thromboembolism (VTE) prophylaxis orally starting 24 hours after surgery for next 35 days. Plan to followup in clinic in 2 weeks' time for clinical check and to discontinue the carmen.
[2019-01-16 05:00] VITALS: BP 112/69
[2019-01-16 05:54] VITALS: BP 112/69
[2019-01-16] MEDS: ceFAZolin SOD 2 GM in IV 1 EA IV SCH ×2 (06:08→14:19)
[2019-01-16] MEDS ORDERED: XARE10TA PO (06:19)
[2019-01-16] MEDS ORDERED: PERC5TAB12 PO (06:19)
[2019-01-16] MEDS: PERCOCET 5MG/325MG TAB PO PRN ×3 (06:31→20:38)
[2019-01-16] MEDS: SYMBICORT 80/4.5MCG INHALER 6GM INH SCH ×2 (07:47→19:48)
--- NOTE | 2019-01-16 07:57 | IPN ---
DATE: 01/16/2019 CHIEF COMPLAINT: Postoperative day one right IM nail for hip fracture. HISTORY OF PRESENT ILLNESS: The patient is a 63-year-old female seen today on the [facility] at [address] [place] [address]. She is doing well. She was up with physical therapy (PT) doing some early ambulation. No complaints or concerns from the nursing staff. PHYSICAL EXAMINATION: Vital Signs: Temperature 98.2, blood pressure 112/69, pulse rate 91, respiratory rate 18, one liter nasal prongs 93%. She is alert and oriented times three. She is pleasant and positive. Dressings are dry. Slight bruising proximally. Thigh compartments are soft. Normal sensation throughout the feet. The feet are warm and well perfused. Good pedal pulses. She is able to wiggle her toes, dorsiflex and plantar flex the foot. LABORATORY EXAMINATION: Revealed hemoglobin to be pending from this morning. ASSESSMENT AND PLAN: 63-year-old female. We will mobilize her as tolerated. Start venous thromboembolism (VTE) prophylaxis. Nery, our nurse practitioner, will help in discharge planning and management for her medical issues per the hospitalist.
[2019-01-16 08:08] LABS: INR 0.97; PROTHROMBIN TIME 12.6 SECONDS (11.8-14.0)
[2019-01-16] MEDS: MIRALAX *UNIT DOSE* 17GM PACKET PO SCH (09:00)
[2019-01-16] MEDS: MOM 30ML SUSPENSION UDC PO SCH ×2 (09:00→09:28)
[2019-01-16] MEDS: MULTIVITAMINS/MINERALS THERAP 1 TAB PO SCH (09:27)
[2019-01-16] MEDS: SENOKOT S TAB PO SCH ×2 (09:28→20:38)
[2019-01-16] MEDS: BENZONATATE 100 MG CAP PO SCH ×3 (09:28→20:38)
[2019-01-16] MEDS: THIAMINE 100 MG TAB PO SCH (09:28)
[2019-01-16] MEDS: MONTELUKAST 10 MG TAB PO SCH (09:28)
[2019-01-16] MEDS: PANTOPRAZOLE 40MG INJ (PROTONIX) (C9113) IV SCH (09:28)
[2019-01-16] MEDS: FOLIC ACID 1 MG TAB PO SCH (09:28)
[2019-01-16] MEDS: NICOTINE 21MG/24HR 1 EA TRANSDERMAL TD SCH (09:29)
[2019-01-16] MEDS: predniSONE 20 MG TAB PO SCH (09:57)
[2019-01-16 10:00] VITALS: BP 113/66
--- NOTE | 2019-01-16 11:47 | IPNPDOC ---
Text Note Date of Service The patient was seen on 01/16/19. NOTE SUBJECTIVE: -Feels ok this morning, had surgery that went well -pain is well controllled OBJECTIVE: VITAL SIGNS: Please see below. Hemodynamically stable and afebrile GENERAL APPEARANCE: NAD HEENT: NCAT, PERRLA, EOMI, MMM CARDIOVASCULAR: RRR. No murmurs, rubs or gallops LUNGS: No wheezing, otherwise without crackles or rhonchi and speaking in full sentences ABDOMEN: Normoactive, soft, NTND MUSCULOSKELETAL: Moves all 4 extremities except for right hip whose ROM is limited by pain NEUROLOGICAL:. AOx3, clear speech, CN2-12 intact, R hip w/ pain PSYCHIATRIC: Alert and oriented to person, place and time, able to understand and follow commands LABORATORY DATA: Reviewed: AM labs pending IMAGING: X-ray of hip " Impression: Comminuted intertrochanteric fracture of the right hip." Chest x-ray " Impression: No acute cardiopulmonary process appreciated." ASSESSMENT: 63 old W with CAD, COPD, chronic hypertension, HCV infection, anxiety and depression who was admitted for management of a right hip fracture and mild COPD exacerbation, s/p hip surgery pending PT evaluation. PLAN: 1. Right hip Fracture due to mechanical fall -At her baseline has difficulties walking because of sciatica -s/p hip surgery yesterday with plan well controlled on surgery plan of morphine 2Q2 IV PRN, 1Q4PRN percocet for mod pain, 2Q4PRN percocet for severe pain -physical therapy as tolerated -Xarelto DVT ppx per surgery 2. Osteoporosis. By definition she has osteoporosis because of fragility fracture. Her risk factors include gender her age and her low BMI Plan: She can have the workup for osteoporosis an outpatient basis (ie DEXA (if T score less than -3 will need Endo referral to start Forteo), BMP to calculate CrCl BMP to calculate CrCl prior to selecting bisphosphonate or Denosumab, TSH, Calcium, 25-OH Vitamin D, Urine calcium) 3. Mild COPD exacerbation: Likely due to viral infection -Chest x-ray was unrevealing. -EKG showed sinus rhythm -supplemental O2 / Dunebs Q6H, Albuterol Q4HP/ Prednisone 40 for 5d total + PPI/ Tessalon Pearls / hold home inhalers 3. Tobacco abuse. Plan: Smoking cessation education -Agreeable to nicotine patch 21mg 4. History of alcohol abuse -CIWA protocol 5. Preoperative Assessment Her Revised Cardiac Index score to asses risk of MACE from surgery Score is 1 (bc of the hx of [place]) Plan: treat acute COPD / based on her RCI score did pro-BNPthat was less than 300, she will not require additional testing prior to surgery / discontinue Ibuprofen DVT prophylaxis with SCDs and Xarelto Dispo: pending PT eval VS,Fishbone, I+O VS, Fishbone, I+O Vital Signs Date Time Temp Pulse Resp B/P (MAP) Pulse Ox O2 Delivery O2 Flow Rate FiO2 01/16/19 10:00 97.4 88 15 113/66 (82) 93 Nasal Cannula 1.0 I&O- Last 24 Hours up to 6 AM 01/16/19 06:00 Intake Total 1200 ml Output Total 3725 ml Balance -2525 ml LAZARA PARSON MD Jan 16, 2019 11:47
[2019-01-16 12:14] LABS: HEMATOCRIT 35.1 % (36.0-47.0); HEMOGLOBIN 11.6 g/dl (12.0-15.5); MEAN CORPUSCULAR HEMOGLOBIN 31.2 pg (27.0-33.0); MEAN CORPUSCULAR VOLUME 94.4 fl (80.0-96.0); PLATELET COUNT, AUTOMATED 211 10^3/uL (150-450); RED BLOOD COUNT 3.72 10^6/uL (4.00-5.40); WHITE BLOOD COUNT 10.9 10^3/uL (4.0-10.0)
[2019-01-16 13:06] LABS: BLOOD UREA NITROGEN 4 MG/DL (7-18); CALCIUM LEVEL 8.9 MG/DL (8.8-10.2); CARBON DIOXIDE LEVEL 27 MEQ/L (21-32); CHLORIDE LEVEL 99 MEQ/L (98-107); CREATININE FOR GFR 0.34 MG/DL (0.55-1.30); GLOMERULAR FILTRATION RATE > 60.0 (>45); GLUCOSE, FASTING 71 MG/DL (70-100); POTASSIUM SERUM 3.3 MEQ/L (3.5-5.1); SODIUM LEVEL 135 MEQ/L (136-145)
[2019-01-16 14:00] VITALS: BP 95/64
[2019-01-16] MEDS: RIVAROXABAN 10 MG TAB (XARELTO) PO SCH (18:30)
[2019-01-16] MEDS: CETIRIZINE (ZyrTEC) 10 MG TAB PO SCH (20:38)
[2019-01-16 20:46] VITALS: BP 114/68
[2019-01-16 22:00] VITALS: BP 114/68
[2019-01-17] MEDS: IPRATROPIUM 0.5MG/ALBUTEROL 2.5MG INH SOL UD 3ML (DUONEB)(J7620) NEB SCH ×4 (01:34→20:00)
[2019-01-17] MEDS: PERCOCET 5MG/325MG TAB PO PRN ×4 (03:50→22:45)
[2019-01-17 06:00] VITALS: BP 110/67
[2019-01-17 06:08] VITALS: BP 110/67
[2019-01-17 06:32] LABS: INR 1.28; PROTHROMBIN TIME 15.7 SECONDS (11.8-14.0)
[2019-01-17] MEDS: MULTIVITAMINS/MINERALS THERAP 1 TAB PO SCH (08:46)
[2019-01-17] MEDS: BENZONATATE 100 MG CAP PO SCH ×3 (08:46→20:53)
[2019-01-17] MEDS: predniSONE 20 MG TAB PO SCH (08:47)
[2019-01-17] MEDS: MONTELUKAST 10 MG TAB PO SCH (08:47)
[2019-01-17] MEDS: SENOKOT S TAB PO SCH ×2 (08:47→20:53)
[2019-01-17] MEDS: FOLIC ACID 1 MG TAB PO SCH (08:47)
[2019-01-17] MEDS: PANTOPRAZOLE 40MG INJ (PROTONIX) (C9113) IV SCH (08:48)
[2019-01-17] MEDS: MOM 30ML SUSPENSION UDC PO SCH (08:48)
[2019-01-17] MEDS: MIRALAX *UNIT DOSE* 17GM PACKET PO SCH (08:48)
[2019-01-17] MEDS: NICOTINE 21MG/24HR 1 EA TRANSDERMAL TD SCH (08:49)
[2019-01-17] MEDS: SYMBICORT 80/4.5MCG INHALER 6GM INH SCH ×2 (09:01→20:45)
[2019-01-17] MEDS ORDERED: POTASSIUM CHLORIDE 10 MEQ SR TABLET PO ONE ×2 (09:30→12:45)
[2019-01-17 10:27] LABS: HEMATOCRIT 31.5 % (36.0-47.0); HEMOGLOBIN 10.6 g/dl (12.0-15.5); MEAN CORPUSCULAR HEMOGLOBIN 31.1 pg (27.0-33.0); MEAN CORPUSCULAR HGB CONC 33.7 g/dl (32.0-36.5); MEAN CORPUSCULAR VOLUME 92.4 fl (80.0-96.0); PLATELET COUNT, AUTOMATED 223 10^3/uL (150-450); RED BLOOD COUNT 3.41 10^6/uL (4.00-5.40); WHITE BLOOD COUNT 11.4 10^3/uL (4.0-10.0)
[2019-01-17 11:13] LABS: BLOOD UREA NITROGEN 5 MG/DL (7-18); CALCIUM LEVEL 8.4 MG/DL (8.8-10.2); CARBON DIOXIDE LEVEL 33 MEQ/L (21-32); CHLORIDE LEVEL 99 MEQ/L (98-107); CREATININE FOR GFR 0.27 MG/DL (0.55-1.30); GLOMERULAR FILTRATION RATE > 60.0 (>45); GLUCOSE, FASTING 108 MG/DL (70-100); POTASSIUM SERUM 3.2 MEQ/L (3.5-5.1); SODIUM LEVEL 137 MEQ/L (136-145)
--- NOTE | 2019-01-17 12:38 | IPNPDOC ---
Text Note Date of Service The patient was seen on 01/17/19. NOTE SUBJECTIVE: -Feels ok this morning -pain is well controlled -No fever, chills, SOB, bleeding OBJECTIVE: VITAL SIGNS: Please see below. Hemodynamically stable and afebrile GENERAL APPEARANCE: NAD HEENT: NCAT, PERRLA, EOMI, MMM CARDIOVASCULAR: RRR. No murmurs, rubs or gallops LUNGS: No wheezing, crackles or rhonchi and speaking in full sentences ABDOMEN: Normoactive, soft, NTND MUSCULOSKELETAL: Moves all 4 extremities, right hip ROM is limited by pain NEUROLOGICAL:. AOx3, clear speech, CN2-12 intact, R hip w/ pain PSYCHIATRIC: Alert and oriented to person, place and time, able to understand and follow commands LABORATORY DATA: Reviewed from yesterday. K 3.2 repleted. Admission imaging: X-ray of hip " Impression: Comminuted intertrochanteric fracture of the right hip." Chest x-ray " Impression: No acute cardiopulmonary process appreciated." ASSESSMENT: 63 old W with CAD, COPD, chronic hypertension, HCV infection, anxiety and depression who was admitted for management of a right hip fracture and mild COPD exacerbation, s/p hip surgery pending PT evaluation. PLAN: 1. Right hip Fracture due to mechanical fall -At her baseline has difficulties walking because of sciatica -s/p hip surgery yesterday with plan well controlled on surgery plan of morphine 2Q2 IV PRN, 1Q4PRN Percocet for mod pain, 2Q4PRN Percocet for severe pain -physical therapy as tolerated--> pending ARU admission on Saturday -Xarelto DVT ppx per surgery 2. Osteoporosis. By definition she has osteoporosis because of fragility fracture. Her risk factors include gender her age and her low BMI Plan: She can have the workup for osteoporosis an outpatient basis (ie DEXA (if T score less than -3 will need Endo referral to start Forteo), BMP to calculate CrCl BMP to calculate CrCl prior to selecting bisphosphonate or Denosumab, TSH, Calcium, 25-OH Vitamin D, Urine calcium) 3. Mild COPD exacerbation: Likely due to viral infection -Chest x-ray was unrevealing. -EKG showed sinus rhythm -supplemental O2 / Dunebs Q6H, Albuterol Q4HP/ Prednisone 40 for 5d total (01/17 is Day 4 of 5)+ PPI/ Tessalon Pearls / hold home inhalers 3. Tobacco abuse. Plan: Smoking cessation education -Nicotine patch 21mg 4. History of alcohol abuse -[facility] protocol 5. Preoperative Assessment Her Revised Cardiac Index score to asses risk of MACE from surgery Score is 1 (bc of the hx of [place]) Plan: treat acute COPD / based on her RCI score did pro-BNPthat was less than 300, she will not require additional testing prior to surgery / discontinue Ibuprofen DVT prophylaxis with SCDs and Xarelto Dispo: pending ARU admission on Saturday VS,Fishbone, I+O VS, Fishbone, I+O Vital Signs Date Time Temp Pulse Resp B/P (MAP) Pulse Ox O2 Delivery O2 Flow Rate FiO2 01/17/19 08:55 16 01/17/19 06:08 97.0 79 110/67 (81) 95 Nasal Cannula 2.0 I&O- Last 24 Hours up to 6 AM 01/17/19 06:00 Intake Total 1800 ml Output Total 1050 ml Balance 750 ml LAZARA PARSON MD Jan 17, 2019 09:32
[2019-01-17 14:00] VITALS: BP 93/63
[2019-01-17] MEDS: RIVAROXABAN 10 MG TAB (XARELTO) PO SCH (17:24)
[2019-01-17] MEDS: CETIRIZINE (ZyrTEC) 10 MG TAB PO SCH (20:53)
[2019-01-17 22:00] VITALS: BP 95/62
[2019-01-18] MEDS: IPRATROPIUM 0.5MG/ALBUTEROL 2.5MG INH SOL UD 3ML (DUONEB)(J7620) NEB SCH ×4 (01:32→20:00)
[2019-01-18 06:00] VITALS: BP 111/71
[2019-01-18 06:39] LABS: HEMATOCRIT 28.6 % (36.0-47.0); HEMOGLOBIN 9.5 g/dl (12.0-15.5); MEAN CORPUSCULAR HGB CONC 33.2 g/dl (32.0-36.5); MEAN CORPUSCULAR VOLUME 93.5 fl (80.0-96.0); PLATELET COUNT, AUTOMATED 242 10^3/uL (150-450); RED BLOOD COUNT 3.06 10^6/uL (4.00-5.40); WHITE BLOOD COUNT 7.1 10^3/uL (4.0-10.0)
[2019-01-18 06:49] LABS: INR 1.09; PROTHROMBIN TIME 13.8 SECONDS (11.8-14.0)
[2019-01-18 07:11] LABS: BLOOD UREA NITROGEN 6 MG/DL (7-18); CALCIUM LEVEL 8.5 MG/DL (8.8-10.2); CARBON DIOXIDE LEVEL 32 MEQ/L (21-32); CHLORIDE LEVEL 101 MEQ/L (98-107); CREATININE FOR GFR 0.28 MG/DL (0.55-1.30); GLOMERULAR FILTRATION RATE > 60.0 (>45); GLUCOSE, FASTING 95 MG/DL (70-100); POTASSIUM SERUM 4.1 MEQ/L (3.5-5.1); SODIUM LEVEL 136 MEQ/L (136-145)
[2019-01-18] MEDS: SYMBICORT 80/4.5MCG INHALER 6GM INH SCH ×2 (08:57→20:30)
[2019-01-18] MEDS: MIRALAX *UNIT DOSE* 17GM PACKET PO SCH (09:00)
[2019-01-18] MEDS: PANTOPRAZOLE 40MG INJ (PROTONIX) (C9113) IV SCH (09:22)
[2019-01-18] MEDS: PERCOCET 5MG/325MG TAB PO PRN ×3 (09:23→23:57)
[2019-01-18] MEDS: NICOTINE 21MG/24HR 1 EA TRANSDERMAL TD SCH (09:23)
[2019-01-18] MEDS: BENZONATATE 100 MG CAP PO SCH ×3 (09:24→20:07)
[2019-01-18] MEDS: predniSONE 20 MG TAB PO SCH (09:24)
[2019-01-18] MEDS: SENOKOT S TAB PO SCH ×2 (09:24→20:07)
[2019-01-18] MEDS: MOM 30ML SUSPENSION UDC PO SCH (09:24)
[2019-01-18] MEDS: FOLIC ACID 1 MG TAB PO SCH (09:24)
[2019-01-18] MEDS: MULTIVITAMINS/MINERALS THERAP 1 TAB PO SCH (09:24)
[2019-01-18] MEDS: MONTELUKAST 10 MG TAB PO SCH (09:24)
[2019-01-18] MEDS: MORPHINE 2 MG/ML 1ML VIAL (J2270) IV PRN (09:29)
[2019-01-18] MEDS: MORPHINE 15 MG SA TAB PO SCH ×2 (12:33→20:07)
[2019-01-18 14:00] VITALS: BP 105/69
--- NOTE | 2019-01-18 15:12 | IPNPDOC ---
Text Note Date of Service The patient was seen on 01/18/19. NOTE SUBJECTIVE: -Ms. Ziegler is doing well. She told me she ambulated with PT today and is feeling hopeful -Her pain is well controlled -No fever, chills, SOB, bleeding OBJECTIVE: VITAL SIGNS: Please see below. Hemodynamically stable and afebrile GENERAL APPEARANCE: NAD HEENT: NCAT, PERRLA, EOMI, MMM CARDIOVASCULAR: RRR. No murmurs, rubs or gallops LUNGS: CTAB. No wheezing, crackles or rhonchi and speaking in full sentences ABDOMEN: Normoactive, soft, NTND MUSCULOSKELETAL: Moves all 4 extremities, right hip ROM is limited by pain NEUROLOGICAL:. AOx3, clear speech, CN2-12 intact, R hip w/ pain PSYCHIATRIC: Alert and oriented to person, place and time. LABORATORY DATA: Reviewed. K 4.1, WBC 7.1, Hgb 9.5, Hct 28.6, platelets 242, Cr 0.28 Admission imaging: X-ray of hip " Impression: Comminuted intertrochanteric fracture of the right hip." Chest x-ray " Impression: No acute cardiopulmonary process appreciated." ASSESSMENT: 63 old W with CAD, COPD, chronic hypertension, HCV infection, anxiety and depression who was admitted for management of a right hip fracture and mild COPD exacerbation, s/p hip surgery pending PT evaluation. PLAN: 1. Right hip Fracture due to mechanical fall -At her baseline has difficulties walking because of sciatica -s/p hip surgery yesterday with plan well controlled on surgery plan of morphine 2Q2 IV PRN, 1Q4PRN Percocet for mod pain, 2Q4PRN Percocet for severe pain -physical therapy as tolerated--> pending ARU admission on Saturday -Xarelto DVT ppx per surgery 2. Osteoporosis. By definition she has osteoporosis because of fragility fracture. Her risk factors include gender her age and her low BMI Plan: She can have the workup for osteoporosis an outpatient basis (ie DEXA (if T score less than -3 will need Endo referral to start Forteo), BMP to calculate CrCl BMP to calculate CrCl prior to selecting bisphosphonate or Denosumab, TSH, Calcium, 25-OH Vitamin D, Urine calcium) 3. Mild COPD exacerbation: Likely due to viral infection -Chest x-ray was unrevealing. -EKG showed sinus rhythm -supplemental O2 / Dunebs Q6H, Albuterol Q4HP/ Prednisone 40 for 5d total (01/18 is Day 5 of )+ PPI/ Tessalon Pearls / hold home inhalers 3. Tobacco abuse. Plan: Smoking cessation education -Nicotine patch 21mg 4. History of alcohol abuse -CIWA protocol 5. Preoperative Assessment Her Revised Cardiac Index score to asses risk of MACE from surgery Score is 1 (bc of the hx of [place]) Plan: treat acute COPD / based on her RCI score did pro-BNPthat was less than 300, she will not require additional testing prior to surgery / discontinue Ibuprofen DVT prophylaxis with SCDs and Xarelto Dispo: pending ARU admission on Saturday Arnulfo GRESHAM, I+O VSArnulfo I+O Laboratory Tests 01/18/19 05:55 Vital Signs Date Time Temp Pulse Resp B/P (MAP) Pulse Ox O2 Delivery O2 Flow Rate FiO2 01/18/19 14:00 98.3 94 18 105/69 (81) 96 Nasal Cannula 1.0 I&O- Last 24 Hours up to 6 AM 01/18/19 06:00 Intake Total 1760 ml Output Total 0 ml Balance 1760 ml LAZARA PARSON MD Jan 18, 2019 15:12
[2019-01-18] MEDS: RIVAROXABAN 10 MG TAB (XARELTO) PO SCH (17:52)
[2019-01-18 19:33] VITALS: BP 101/65
[2019-01-18] MEDS: CETIRIZINE (ZyrTEC) 10 MG TAB PO SCH (20:06)
[2019-01-18 22:00] VITALS: BP 101/65
[2019-01-19] MEDS: IPRATROPIUM 0.5MG/ALBUTEROL 2.5MG INH SOL UD 3ML (DUONEB)(J7620) NEB SCH ×3 (02:47→12:26)
[2019-01-19 05:15] VITALS: BP 101/61
[2019-01-19 06:44] LABS: HEMOGLOBIN 9.5 g/dl (12.0-15.5); MEAN CORPUSCULAR HEMOGLOBIN 31.4 pg (27.0-33.0); MEAN CORPUSCULAR HGB CONC 33.9 g/dl (32.0-36.5); MEAN CORPUSCULAR VOLUME 92.4 fl (80.0-96.0); PLATELET COUNT, AUTOMATED 276 10^3/uL (150-450); RED BLOOD COUNT 3.03 10^6/uL (4.00-5.40); WHITE BLOOD COUNT 10.3 10^3/uL (4.0-10.0)
[2019-01-19 06:56] LABS: INR 1.18; PROTHROMBIN TIME 14.7 SECONDS (11.8-14.0)
[2019-01-19 07:07] LABS: BLOOD UREA NITROGEN 7 MG/DL (7-18); CALCIUM LEVEL 8.8 MG/DL (8.8-10.2); CARBON DIOXIDE LEVEL 33 MEQ/L (21-32); CHLORIDE LEVEL 96 MEQ/L (98-107); CREATININE FOR GFR 0.27 MG/DL (0.55-1.30); GLOMERULAR FILTRATION RATE > 60.0 (>45); GLUCOSE, FASTING 88 MG/DL (70-100); POTASSIUM SERUM 3.8 MEQ/L (3.5-5.1); SODIUM LEVEL 135 MEQ/L (136-145)
[2019-01-19] MEDS ORDERED: XARE10TA PO (07:34)
[2019-01-19] MEDS: PANTOPRAZOLE 40MG INJ (PROTONIX) (C9113) IV SCH (08:33)
[2019-01-19] MEDS: FOLIC ACID 1 MG TAB PO SCH (08:33)
[2019-01-19] MEDS: NICOTINE 21MG/24HR 1 EA TRANSDERMAL TD SCH (08:33)
[2019-01-19] MEDS: BENZONATATE 100 MG CAP PO SCH (08:33)
[2019-01-19] MEDS: MONTELUKAST 10 MG TAB PO SCH (08:33)
[2019-01-19] MEDS: MOM 30ML SUSPENSION UDC PO SCH (08:33)
[2019-01-19] MEDS: MORPHINE 15 MG SA TAB PO SCH (08:33)
[2019-01-19] MEDS: MULTIVITAMINS/MINERALS THERAP 1 TAB PO SCH (08:33)
[2019-01-19] MEDS: SENOKOT S TAB PO SCH (08:33)
[2019-01-19] MEDS: MIRALAX *UNIT DOSE* 17GM PACKET PO SCH (08:34)
[2019-01-19] MEDS: SYMBICORT 80/4.5MCG INHALER 6GM INH SCH (08:35)
[2019-01-19 09:31] VITALS: BP 107/64
[2019-01-19] MEDS: PERCOCET 5MG/325MG TAB PO PRN (11:18)
--- NOTE | 2019-01-19 13:07 | DS.PDOC ---
Discharge Summary General Date of Admission Jan 13, 2019 at 20:45 Date of Discharge 12/20/18 Discharge Summary PROCEDURES PERFORMED DURING STAY: [None]. ADMITTING DIAGNOSES: 1. R. hip fracture 2/2 mechanical fall 2. Osteoporosis 3. Mild COPD exacerbation 4. Tobacco use 5. hx Alcohol abuse DISCHARGE DIAGNOSES: 1. R. hip fracture 2/2 mechanical fall 2. Osteoporosis 3. Mild COPD exacerbation 4. Tobacco use 5. hx Alcohol abuse 6. Viral URI COMPLICATIONS/CHIEF COMPLAINT: Fracture Of Right Hip. HISTORY OF PRESENT ILLNESS: "This is a 63 old female who presented with complaints of difficulty walking because of severe right-sided hip pain. Last night while trying to ambulate with a crutch, she slipped and fell. She uses a crutch because she has sciatica. Despite receiving 2 doses of morphine, she is still complaining of severe pain. She denies having chest pain, nausea, vomiting, fever, chills, diarrhea, chest pain, or dizziness prior to the fall. She has been coughing more than usual and thinks her COPD may be acting up." HOSPITAL COURSE: Patient underwent R. hip intramudullary nailing with orthopedic surgery and also treated for mild COPD exacerbation with no significant CXR findings. She was treated with nebulizer treatment as well as 5 days of prednisone. Cough appear to still be persistent but patient is moving air well with no significant respiratory complaints apart from nasal congestion, likely viral URI symptoms. Patient to be discharged to ARU for continue physical therapy and continue with supportive care. DISCHARGE MEDICATIONS: Please see below. ALLERGIES: Please see below. PHYSICAL EXAMINATION ON DISCHARGE: VITAL SIGNS: Please see below. General: Mild distress with cough, Alert Eyes: Normal sclera, EOMI, LILY HENT: Atraumatic Cardiovascular: Normal rate, normal rhythm. Pulmonary: Clear to auscultation b/l, no wheezing GI: Soft, nontender Skin: Warm and dry Neuro: CN grossly intact. No focal deficits. Strengths equal b/l. Psych: oriented x 3 LABORATORY DATA: Please see below. IMAGING: hip/Pelvis XR- Impression: Comminuted intertrochanteric fracture of the right hip. CXR- Impression: No acute cardiopulmonary process appreciated. ACTIVITY: [As tolerated]. DIET: Regular DISCHARGE PLAN: PT/OT in ARU f/u Ortho and PCP post discharge. c/w Pain control. Supportive care for URI symptoms DISPOSITION: Acute Rehab Unit DISCHARGE INSTRUCTIONS: PT/OT in ARU f/u Ortho and PCP post discharge. c/w Pain control. Supportive care for URI symptoms ITEMS TO FOLLOWUP ON ON OUTPATIENT: None DISCHARGE CONDITION: [Stable]. TIME SPENT ON DISCHARGE: 32 minutes. Vital Signs/I&Os Vital Signs Date Time Temp Pulse Resp B/P (MAP) Pulse Ox O2 Delivery O2 Flow Rate FiO2 01/19/19 12:03 16 01/19/19 09:31 90 107/64 01/19/19 05:15 98.0 97 Nasal Cannula 1.0 I&O- Last 24 Hours up to 6 AM 01/19/19 06:00 Intake Total 2370 ml Balance 2370 ml Laboratory Data Labs 24H Laboratory Tests 2 01/19/19 05:24: Nucleated Red Blood Cells % (auto) 0.0, Prothrombin Time 14.7H, Prothromb Time International Ratio 1.18, Anion Gap 6L, Glomerular Filtration Rate > 60.0, Calcium Level 8.8 CBC/BMP Laboratory Tests 01/19/19 05:24 Discharge Medications Scheduled Budesonide/Formoterol (Symbicort 80-4.5 Mcg Inhaler) 60 Puff/Inhaler Aers, 2 PUFF INH BID, (Reported) Cetirizine HCl (Cetirizine HCl) 10 Mg Tab, 10 MG PO QHS, (Reported) Ergocalciferol (Vitamin D2) (Vitamin D2) 50,000 Unit Capsule, 50,000 UNIT PO EVERY OTHER WEEK, (Reported) Montelukast Sodium (Montelukast Sodium) 10 Mg Tab, 10 MG PO DAILY, (Reported) Rivaroxaban (Xarelto) 10 Mg Tablet, 10 MG PO DAILY Scheduled PRN Albuterol Sulf (Albuterol Sulfate) 2.5 Mg/3 Ml Nebu, 2.5 MG INH Q4H PRN for SHORTNESS OF BREATH, (Reported) Albuterol Sulfate (Proair Hfa) 8.5 Gm Hfa.aer.ad, 2 PUFF INH Q4H PRN for SOB/WHEEZING, (Reported) Fluticasone Propionate (Fluticasone Propionate) 16 Gm Trinity.susp, 1 SPRAY NARES BID PRN for CONGESTION, (Reported) Ibuprofen (Ibuprofen) 800 Mg Tab, 800 MG PO Q8H PRN for PAIN, (Reported) Ketotifen Fumarate (Ketotifen Fumarate) 0.025 % Tod, 1 DROP OU BID PRN for ITCHING, (Reported) Omeprazole (Omeprazole) 40 Mg Cap, 40 MG PO QPM PRN for HEARTBURN/INDIGESTION, (Reported) @ DINNERTIME Oxycodone HCl/Acetaminophen (Percocet 5-325 mg Tablet) 1 Each Tablet, 1 TAB PO Q4H PRN for PAIN Allergies Coded Allergies: ENVIROMENTAL (Verified Allergy, Unknown, 01/11/15) Sulfa (Sulfonamide Antibiotics) (Verified Allergy, Unknown, 01/13/19) AAMIR VILLA MD Jan 19, 2019 13:07
[2019-01-19] MEDS ORDERED: BENZ-18 PO (14:11)
[2019-01-19] MEDS ORDERED: MORP1TAB19 PO (15:32)
[2019-01-19] MEDS ORDERED: VITMTA PO (15:32)
[2019-01-19] MEDS ORDERED: SENN-23 PO (15:32)
[2019-01-19] MEDS ORDERED: FOLI1TAB11 PO (15:32)
== END 2019-01-19 14:50 | DRG 308 ==
LOC: EDBD 18:20 → M ED 18:20 → M ED INP 20:45 → M MS5PR 22:15 → M PCU 23:25 → M MS5PR 01-15 22:45
PROVIDERS: ADMIT Internal Medicine; ATTEND Student in an Organized Health Care Education/Training Program
PROC: 0QS606Z Reposition Right Upper Femur with Intramedullary Internal Fixation Device, Open Approach (ICD-10-PCS; principal; 2019-01-15 10:30)
DX: S72.141A Displaced intertrochanteric fracture of right femur, initial encounter for closed fracture (principal); J44.1 Chronic obstructive pulmonary disease with (acute) exacerbation; I10 Essential (primary) hypertension; M81.0 Age-related osteoporosis without current pathological fracture; W18.09XA Striking against other object with subsequent fall, initial encounter; Y92.009 Unspecified place in unspecified non-institutional (private) residence as the place of occurrence of the external cause; J06.9 Acute upper respiratory infection, unspecified; B34.9 Viral infection, unspecified; I25.10 Atherosclerotic heart disease of native coronary artery without angina pectoris; I25.2 Old myocardial infarction; J30.9 Allergic rhinitis, unspecified; F41.9 Anxiety disorder, unspecified; M54.30 Sciatica, unspecified side; F32.9 Major depressive disorder, single episode, unspecified; F17.210 Nicotine dependence, cigarettes, uncomplicated; Z88.2 Allergy status to sulfonamides; Z79.899 Other long term (current) drug therapy

== ENCOUNTER 2019-01-19 14:43 | Inpatient (IN) | payer OTHER ==
[~2019-01-19] VITALS: Ht 154.9 cm; Wt 39.7 kg
[~2019-01-19 14:43] MED LIST changes: +BENZ-18 PO; +DULO1CAP4; +FLUTISP NARES; +PERC5TAB12 PO; +PROAAER10 INH; +VITA50005 PO; +XARE10TA PO
[2019-01-19 15:00] VITALS: BP 97/63
[2019-01-19] MEDS ORDERED: MORP1TAB19 PO (15:32)
[2019-01-19] MEDS ORDERED: VITMTA PO (15:32)
[2019-01-19] MEDS ORDERED: FOLI1TAB11 PO (15:32)
[2019-01-19] MEDS ORDERED: SENN-23 PO (15:32)
[2019-01-19] MEDS ORDERED: ALBUTEROL SULFATE 2.5 MG/0.5 ML INH NEB SOLN NEB PRN (16:30)
[2019-01-19] MEDS ORDERED: ONDANSETRON 4 MG TAB (S0181) PO PRN (16:30)
[2019-01-19] MEDS ORDERED: MOM 30ML SUSPENSION UDC PO PRN (16:30)
[2019-01-19] MEDS: RIVAROXABAN 10 MG TAB (XARELTO) PO SCH (17:38)
[2019-01-19] MEDS: oxyCODONE 5MG TAB PO PRN ×2 (17:39→23:19)
[2019-01-19 20:00] VITALS: BP 105/70
[2019-01-19] MEDS: BENZONATATE 100 MG CAP PO SCH (20:19)
[2019-01-19] MEDS: SENOKOT S TAB PO SCH (20:19)
[2019-01-19] MEDS: FLUTICASONE PROP 0.05% NASAL SPRAY 16 GM (FLONASE) NARES SCH (20:19)
[2019-01-19] MEDS: ACETAMINOPHEN 500 MG TAB PO SCH (20:20)
[2019-01-19] MEDS: IPRATROPIUM 0.5MG/ALBUTEROL 2.5MG INH SOL UD 3ML (DUONEB)(J7620) NEB SCH (20:50)
[2019-01-19] MEDS: SYMBICORT 80/4.5MCG INHALER 6GM INH SCH (20:51)
[2019-01-20 05:31] VITALS: BP 101/63
[2019-01-20 06:06] LABS: BASO % 0.2 % (0.0-1.0); EOS # 0.1 10^3/uL (0.0-0.5); EOS % 0.7 % (0.0-3.0); HEMATOCRIT 30.1 % (36.0-47.0); HEMOGLOBIN 9.8 g/dl (12.0-15.5); LYMPH # 1.3 10^3/uL (1.5-5.0); LYMPH % 16.3 % (24.0-44.0); MEAN CORPUSCULAR HEMOGLOBIN 31.1 pg (27.0-33.0); MEAN CORPUSCULAR HGB CONC 32.6 g/dl (32.0-36.5); MEAN CORPUSCULAR VOLUME 95.6 fl (80.0-96.0); MONO # 0.7 10^3/uL (0.0-0.8); NEUTROPHILS # 6.1 10^3/uL (1.5-8.5); NEUTROPHILS % 74.7 % (36.0-66.0); PLATELET COUNT, AUTOMATED 303 10^3/uL (150-450); RED BLOOD COUNT 3.15 10^6/uL (4.00-5.40); WHITE BLOOD COUNT 8.1 10^3/uL (4.0-10.0)
[2019-01-20 06:36] LABS: ALBUMIN 2.6 GM/DL (3.2-5.2); ALT/SGPT 18 U/L (12-78); BILIRUBIN,TOTAL 0.4 MG/DL (0.2-1.0); BLOOD UREA NITROGEN 7 MG/DL (7-18); CALCIUM LEVEL 8.8 MG/DL (8.8-10.2); CARBON DIOXIDE LEVEL 34 MEQ/L (21-32); CHLORIDE LEVEL 96 MEQ/L (98-107); CREATININE FOR GFR 0.25 MG/DL (0.55-1.30); GLOMERULAR FILTRATION RATE > 60.0 (>45); GLUCOSE, FASTING 87 MG/DL (70-100); POTASSIUM SERUM 4.3 MEQ/L (3.5-5.1); SODIUM LEVEL 135 MEQ/L (136-145); TOTAL PROTEIN 5.4 GM/DL (6.4-8.2)
[2019-01-20] MEDS: IPRATROPIUM 0.5MG/ALBUTEROL 2.5MG INH SOL UD 3ML (DUONEB)(J7620) NEB SCH ×4 (07:39→20:00)
[2019-01-20] MEDS: SYMBICORT 80/4.5MCG INHALER 6GM INH SCH ×2 (07:40→20:06)
[2019-01-20] MEDS: SENOKOT S TAB PO SCH ×2 (08:01→19:57)
[2019-01-20] MEDS: NICOTINE 21MG/24HR 1 EA TRANSDERMAL TD SCH (08:01)
[2019-01-20] MEDS: CETIRIZINE (ZyrTEC) 10 MG TAB PO SCH (08:01)
[2019-01-20] MEDS: BENZONATATE 100 MG CAP PO SCH ×3 (08:01→19:57)
[2019-01-20] MEDS: MULTIVITAMINS/MINERALS THERAP 1 TAB PO SCH (08:01)
[2019-01-20] MEDS: MONTELUKAST 10 MG TAB PO SCH (08:01)
[2019-01-20] MEDS: PANTOPRAZOLE 40MG TAB (PROTONIX) PO SCH (08:01)
[2019-01-20] MEDS: FLUTICASONE PROP 0.05% NASAL SPRAY 16 GM (FLONASE) NARES SCH ×2 (08:01→19:57)
[2019-01-20] MEDS: FOLIC ACID 1 MG TAB PO SCH (08:01)
[2019-01-20] MEDS: ACETAMINOPHEN 500 MG TAB PO SCH ×3 (08:02→19:57)
--- NOTE | 2019-01-20 08:54 | HPEPDOC ---
[employer] Note DATE OF ADMISSION: 01-19-19 DATE of service 01-20-19 SOURCE OF ADMISSION INFORMATION: [facility] records and patient CHIEF COMPLAINT: right hip fracture HISTORY OF PRESENT ILLNESS: 63F pmh COPD, CAD, hx of Hep C, HTN, sciatica with worsening pain and fell while walking with her crutch where she presented to [facility] ED on 01-13-19 with back pain and difficulty walking. Hip X-ray showed, Comminuted intertrochanteric fracture of the right hip. Age-related osteopenia and degenerative changes noted. Evidence for peripheral vascular disease. She was evaluated by orthopedics who performed an ORIF on 01-15-19, made WBAT, and started on DVT prophylaxis. She developed a COPD exacerbation and started on breathing treatments. She was also placed on [facility] protocol for her history of alcohol abuse. She was evaluated, found to be below her prior level of function for mobility and ADLs and deemed appropriate for discharge to ARU. REVIEW OF SYSTEMS: The following is a completed review of systems and has been reviewed. Review of systems otherwise unremarkable. PAIN: Patient self reports +right hip pain EYES: No recent vision changes EARS, NOSE, & THROAT: No throat pain, or dysphagia, or rhinorrhea CARDIOVASCULAR: Denies chest pain or palpitations] PULMONARY: Denies shortness of breath, +cough GASTROINTESTINAL: Denies constipation/diarrhea GENITOURINARY: denies dysuria MUSCULOSKELETAL: s/p right hip ORIF NEUROLOGICAL:denies tremor or seizures HEMATOLOGICAL: denies easy bruising SKIN: right hip incision PSYCHIATRIC: Unremarkable All other review of systems found to be negative. PAST MEDICAL HISTORY: as per HPI ALLERGIES: Please see below. MEDICATIONS: Please see below. FAMILY HISTORY: Parkinsons, DM SOCIAL HISTORY: +smoking and ETOH abuse DIET: low sodium PHYSICAL EXAMINATION: VITAL SIGNS: Please see below. GENERAL: Pleasant and cooperative. No acute distress. thin HEENT: PERRL. Extraocular movements intact. Clear conjunctiva CARDIOVASCULAR: Regular rate and rhythm. No murmurs, rubs, or gallops LUNGS: +scattered wheeze, productive cough ABDOMEN: Soft, nontender, nondistended. Positive bowel sounds. Normal active bowel sounds NEUROLOGICAL: Alert and oriented times three. Cranial nerves II through XII grossly intact. Sensation grossly intact EXTREMITIES: 5-\5 strength bilateral upper extremities. 5-\5 strength right ankle DF, EHL, and PF (limited due to recent surgery) 5-/5 strength in left lower extremity. (-) Kingston's bilat (+) kyphosis SKIN: right hip incision c/d/i, +scattered excoriations LABORATORY DATA: Please see below. IMAGING:Imaging documentation personally reviewed by record FUNCTIONAL STATUS: Premorbid: Modified Independent with all activities of daily life as well as mobility with crutch for sciatica pain On Admission: Standby assist for upper body dressing, bed chair and wheelchair transfers, toilet transfers, ambulation 150 feet with RW GOALS: Mod-I with RW community distances, functional transfers, stairs, bathing, toileting, dressing, medical optimization, assess for DME needs ASSESSMENT:63-year-old F with past medical history of COPD who presents status post fall with right hip fracture s/p ORIF PLAN: 1. Rehab- PT advance gait training, strengthen/stretch/maintain ROM bilat LE OT- strengthen/stretch/maintain ROM bilat teach energy conservation 2. CArdiac: no known cardiac hx 3. Resp: hx COPD with recent exacerbation, c/u breathing treatments, goal 02 88- 92% -smoker, c/u nicotine patch 4. Heme: macrocytic anemia in setting of chronic ETOH abuse, c/u folic acid and thiamine -will order FOBT -transfuse if Hgb <8 5. GI ppx: protonix 6. DVT ppx: Xarelto and TEDs 7. Pain: tylneol, oxycodone prn 8. ortho: s/p right hip fracture with ORIF-ortho consulted 9. Dispo: TBD Will need osteoporosis work-up at discharge POST ADMISSION PHYSICIAN EVALUATION: Medical and functional status: Description of medical status, medical assessment: As above. Rehabilitation diagnosis and current and prior cold morbid medical conditions as above. Risk of complications and plans to mitigate them as above. Description of functional status current status is as above. Prior status as above. Status compared to preadmission: There are no clinically significant differences between the patient's current status and the information described on the preadmission screening document. Treatment plan anticipated: Treatment plan is as described above. Required disciplines including physical therapy, occupational therapy, others as noted above Intensity of services: 3 hours a day, 6 days a week. Special considerations: There are no specific special or safety considerations that would likely preclude immediate implementation of an intensive rehabilitation program or subsequently influence the plan of care ATTESTATION: Considering all the information above, it is my best judgment that this patient requires intensive rehabilitation therapy as described above and an inpatient hospital environment due to the complexity of nursing, medical, and rehabilitation needs required by the patient. Furthermore, this patient can reasonably be expected to participate in an benefit from an inpatient rehabilitation stay with an interdisciplinary team approach to the delivery of rehabilitation care under the direction and supervision of rehabilitation physician PROGNOSIS: Excellent ESTIMATED LENGTH OF STAY:12-14 days. PROJECTED DISCHARGE DESTINATION: Home with family support and any durable medical equipment required to increase functional safety and mobility TIME SPENT COUNSELING AND COORDINATING INITIAL CARE: Greater than 70 minutes. Vital Signs Vital Sign - Last 24 Hours 01/19/19 01/19/19 01/19/19 01/19/19 15:00 17:39 18:09 20:00 Temp 97.3 98.2 Pulse 87 84 Resp 18 18 16 18 B/P (MAP) 97/63 (74) 105/70 (82) Pulse Ox 91 98 O2 Delivery Nasal Cannula Nasal Cannula O2 Flow Rate 2.0 2.0 01/19/19 01/19/19 01/20/19 21:00 23:19 05:31 Temp 98.7 Pulse 91 Resp 18 20 B/P (MAP) 101/63 (76) Pulse Ox 92 O2 Delivery Room Air Nasal Cannula O2 Flow Rate 2.0 2.0 Laboratory Data CBC/BMP Laboratory Tests 01/20/19 05:46 Labs 24H Laboratory Tests 2 01/20/19 05:46: Immature Granulocyte % (Auto) 0.1, Neutrophils (%) (Auto) 74.7H, Lymphocytes (%) (Auto) 16.3L, Monocytes (%) (Auto) 8.0H, Eosinophils (%) (Auto) 0.7, Basophils (%) (Auto) 0.2, Neutrophils # (Auto) 6.1, Lymphocytes # (Auto) 1.3L, Monocytes # (Auto) 0.7, Eosinophils # (Auto) 0.1, Basophils # (Auto) 0.0, Nucleated Red Blood Cells % (auto) 0.0, Anion Gap 5L, Glomerular Filtration Rate > 60.0, Calcium Level 8.8, Total Bilirubin 0.4, Aspartate Amino Transf (AST/SGOT) 15, Alanine Aminotransferase (ALT/SGPT) 18, Alkaline Phosphatase 57, Total Protein 5.4L, Albumin 2.6L, Albumin/Globulin Ratio 0.93L Home Medications Scheduled Budesonide/Formoterol (Symbicort 80-4.5 Mcg Inhaler) 60 Puff/Inhaler Aers, 2 PUFF INH BID, (Reported) Cetirizine HCl (Cetirizine HCl) 10 Mg Tab, 10 MG PO QHS, (Reported) Ergocalciferol (Vitamin D2) (Vitamin D2) 50,000 Unit Capsule, 50,000 UNIT PO Q2WK, (Reported) Folic Acid (Folic Acid) 1 Mg Tablet, 1 MG PO DAILY, (Reported) Montelukast Sodium (Montelukast Sodium) 10 Mg Tab, 10 MG PO DAILY, (Reported) Morphine Sulfate (Morphine Sulfate Cr) 15 Mg Tablet.er, 15 MG PO BID, (Reported) Multivitamins (Thera M Plus Tablet) 1 Each Tablet, 1 TAB PO DAILY, (Reported) Rivaroxaban (Xarelto) 10 Mg Tablet, 10 MG PO DAILY Sennosides/Docusate Sodium (Senna-S Tablet) 1 Each Tablet, 1 TAB PO BID, (Reported) Scheduled PRN Albuterol Sulf (Albuterol Sulfate) 2.5 Mg/3 Ml Nebu, 2.5 MG INH Q4H PRN for SHORTNESS OF BREATH, (Reported) Albuterol Sulfate (Proair Hfa) 8.5 Gm Hfa.aer.ad, 2 PUFF INH Q4H PRN for SOB/WHEEZING, (Reported) Benzonatate (Benzonatate) 100 Mg Capsule, 100 MG PO TID PRN for COUGH Fluticasone Propionate (Fluticasone Propionate) 16 Gm [place].susp, 1 SPRAY NARES BID PRN for CONGESTION, (Reported) Ketotifen Fumarate (Ketotifen Fumarate) 0.025 % Tod, 1 DROP OU BID PRN for I TCHING, (Reported) Omeprazole (Omeprazole) 40 Mg Cap, 40 MG PO QPM PRN for HEARTBURN/INDIGESTION, (Reported) @ DINNERTIME Oxycodone HCl/Acetaminophen (Percocet 5-325 mg Tablet) 1 Each Tablet, 1 TAB PO Q4H PRN for PAIN Allergies Coded Allergies: ENVIROMENTAL (Verified Allergy, Unknown, 01/11/15) Sulfa (Sulfonamide Antibiotics) (Verified Allergy, Unknown, 01/13/19) A-FIB/CHADSVASC A-FIB History Current/History of A-Fib/PAF?: No JENNI LANGE MD Jan 20, 2019 08:54
[2019-01-20] MEDS: THIAMINE 100 MG TAB PO SCH (09:10)
[2019-01-20] MEDS: oxyCODONE 5MG TAB PO PRN ×3 (11:47→21:39)
[2019-01-20 14:00] VITALS: BP 100/56
[2019-01-20] MEDS: RIVAROXABAN 10 MG TAB (XARELTO) PO SCH (17:15)
--- NOTE | 2019-01-20 17:31 | CR.PDOC ---
General Date of Consultation: Jan 20, 2019 Consultation REASON FOR CONSULTATION/CHIEF COMPLAINT: New acute ischemic stroke. HISTORY OF PRESENT ILLNESS: X-Ray in the ED also showed age-related osteopenia and degenerative changes. There was evidence for PVD. Ms Ziegler has a PMHx of COPD, CAD, HTN, Alcohol abuse, and sciatica, current smoker. She has a remote Hx of Hepatitis C. ORIF performed on 01/15/19 and started on DVT prophylaxis. Pateint was provided nebulizers due to a COPD exacerbation. Patient has been placed on CIWA protocol per ARU due to her history of alcohol abuse. Consulted on the ARU this morning. Ms. Ziegler denied any new or worsening symptoms at this time. She has been suing her breathing treatments as presc ribed and they help her chronic cough. Patient stated smoking cessation is 'debatable' at this time. Patient has been walking to and from the gym this morning. She is working with PT during exam. Pain over the R hip is 8/10, aching, non-radiating. Patient just finished showering and is due for scheduled pain medications. ALLERGIES: Please see below. HOME MEDICATIONS: Please see below. PAST MEDICAL HISTORY: per HPI FAMILY HISTORY: Diabetes, Parkinson's disease SOCIAL HISTORY: Current smoker Denies current alcohol use. Previously a heavy drinker. REVIEW OF SYSTEMS: A 14-point ROS was obtained as is negative except as per HPI. PHYSICAL EXAMINATION: VITAL SIGNS: Please see below. General Exam: Positive: Alert, Cooperative, No Acute Distress. Thin and frail Eye Exam: Positive: Conjunctiva normal ENT Exam: Positive: Atraumatic, Mucous membr. moist/pink, Pharynx Normal Neck Exam: Positive: Supple; Negative: thyromegaly Chest Exam: Inspiratory wheeze Heart Exam: Positive: Rate Normal; Distant Heart Sounds Negative: Rubs Abdomen Exam: Positive: Normal bowel sounds, Soft Extremity Exam: ROM in the RUE grossly intact; elevating the R leg while sitting elicits pain Skin Exam: Positive: Nl turgor and temperature Neuro Exam: Speaks clearly Psych Exam: Positive: Mental status NL LABORATORY DATA: Please see below. Assessment/Plan: Ms Ziegler is a 63 year old female admitted to the ARU with a diagnosis of comminuted intertrochanteric Fx of the R hip on X-ray (occurred 01/13/2019). Right hip fracture: Management per ARU Provide adequate pain control COPD: Continue with DuoNeb, Symbicort and Singulair as prescribed. Monitor cough for worsening Patient counseled to quit smoking CAD: Continue Xarelto Encourage smoking cessation HTN: continue home medications Current smoker: Nicotine patches provided. Ensure patient has patches offered on d/c Alcohol Abuse: [facility] protocol Vital Signs/I&O Vital Signs Date Time Temp Pulse Resp B/P (MAP) Pulse Ox O2 Delivery O2 Flow Rate FiO2 01/20/19 14:00 98.7 95 18 100/56 (71) 91 Room Air 01/20/19 08:00 2.0 I&O- Last 24 Hours up to 6 AM 01/20/19 06:00 Intake Total 720 ml Balance 720 ml Laboratory Data Labs 24H Laboratory Tests 2 01/20/19 05:46: Immature Granulocyte % (Auto) 0.1, Neutrophils (%) (Auto) 74.7H, Lymphocytes (%) (Auto) 16.3L, Monocytes (%) (Auto) 8.0H, Eosinophils (%) (Auto) 0.7, Basophils (%) (Auto) 0.2, Neutrophils # (Auto) 6.1, Lymphocytes # (Auto) 1.3L, Monocytes # (Auto) 0.7, Eosinophils # (Auto) 0.1, Basophils # (Auto) 0.0, Nucleated Red Blood Cells % (auto) 0.0, Anion Gap 5L, Glomerular Filtration Rate > 60.0, Calcium Level 8.8, Total Bilirubin 0.4, Aspartate Amino Transf (AST/SGOT) 15, Alanine Aminotransferase (ALT/SGPT) 18, Alkaline Phosphatase 57, Total Protein 5.4L, Albumin 2.6L, Albumin/Globulin Ratio 0.93L CBC/BMP Laboratory Tests 01/20/19 05:46 Allergies Coded Allergies: ENVIROMENTAL (Verified Allergy, Unknown, 01/11/15) Sulfa (Sulfonamide Antibiotics) (Verified Allergy, Unknown, 01/13/19) Home Medications Scheduled Budesonide/Formoterol (Symbicort 80-4.5 Mcg Inhaler) 60 Puff/Inhaler Aers, 2 PUFF INH BID, (Reported) Cetirizine HCl (Cetirizine HCl) 10 Mg Tab, 10 MG PO QHS, (Reported) Ergocalciferol (Vitamin D2) (Vitamin D2) 50,000 Unit Capsule, 50,000 UNIT PO Q2WK, (Reported) Folic Acid (Folic Acid) 1 Mg Tablet, 1 MG PO DAILY, (Reported) Montelukast Sodium (Montelukast Sodium) 10 Mg Tab, 10 MG PO DAILY, (Reported) Morphine Sulfate (Morphine Sulfate Cr) 15 Mg Tablet.er, 15 MG PO BID, (Reported) Multivitamins (Thera M Plus Tablet) 1 Each Tablet, 1 TAB PO DAILY, (Reported) Rivaroxaban (Xarelto) 10 Mg Tablet, 10 MG PO DAILY for 30 Days, #30 Sennosides/Docusate Sodium (Senna-S Tablet) 1 Each Tablet, 1 TAB PO BID, (Reported) Scheduled PRN Albuterol Sulf (Albuterol Sulfate) 2.5 Mg/3 Ml Nebu, 2.5 MG INH Q4H PRN for SHORTNESS OF BREATH, (Reported) Albuterol Sulfate (Proair Hfa) 8.5 Gm Hfa.aer.ad, 2 PUFF INH Q4H PRN for SOB/WHEEZING, (Reported) Benzonatate (Benzonatate) 100 Mg Capsule, 100 MG PO TID PRN for COUGH for 4 Days, #12 Fluticasone Propionate (Fluticasone Propionate) 16 Gm [place].susp, 1 SPRAY NARES BID PRN for CONGESTION, (Reported) Ketotifen Fumarate (Ketotifen Fumarate) 0.025 % Tod, 1 DROP OU BID PRN for ITCH ING, (Reported) Omeprazole (Omeprazole) 40 Mg Cap, 40 MG PO QPM PRN for HEARTBURN/INDIGESTION, (Reported) @ DINNERTIME Oxycodone HCl/Acetaminophen (Percocet 5-325 mg Tablet) 1 Each Tablet, 1 TAB PO Q4H PRN for PAIN, #30 ATTENDING NOTE I have personally performed a face to face diagnostic evaluation on this patient. I have reviewed and agree with the care plan. YIN YOUNG PA-C Jan 20, 2019 17:31 AAMIR VILLA MD Jan 20, 2019 19:21
[2019-01-20 20:00] VITALS: BP 100/60
[2019-01-21] MEDS: oxyCODONE 5MG TAB PO PRN ×5 (02:23→21:32)
[2019-01-21 06:00] VITALS: BP 100/52
[2019-01-21] MEDS: SYMBICORT 80/4.5MCG INHALER 6GM INH SCH ×2 (07:32→20:39)
[2019-01-21] MEDS: IPRATROPIUM 0.5MG/ALBUTEROL 2.5MG INH SOL UD 3ML (DUONEB)(J7620) NEB SCH ×4 (07:32→20:00)
[2019-01-21] MEDS: NICOTINE 21MG/24HR 1 EA TRANSDERMAL TD SCH (09:11)
[2019-01-21] MEDS: CETIRIZINE (ZyrTEC) 10 MG TAB PO SCH (09:12)
[2019-01-21] MEDS: ACETAMINOPHEN 500 MG TAB PO SCH ×2 (09:12→16:24)
[2019-01-21] MEDS: SENOKOT S TAB PO SCH ×2 (09:12→21:31)
[2019-01-21] MEDS: BENZONATATE 100 MG CAP PO SCH ×3 (09:12→21:31)
[2019-01-21] MEDS: THIAMINE 100 MG TAB PO SCH (09:12)
[2019-01-21] MEDS: FOLIC ACID 1 MG TAB PO SCH (09:12)
[2019-01-21] MEDS: PANTOPRAZOLE 40MG TAB (PROTONIX) PO SCH (09:12)
[2019-01-21] MEDS: MONTELUKAST 10 MG TAB PO SCH (09:12)
[2019-01-21] MEDS: MULTIVITAMINS/MINERALS THERAP 1 TAB PO SCH (09:12)
[2019-01-21] MEDS: FLUTICASONE PROP 0.05% NASAL SPRAY 16 GM (FLONASE) NARES SCH ×2 (09:13→21:32)
--- NOTE | 2019-01-21 12:35 | IPNPDOC ---
PM&R Progress Note DATE OF SERVICE: Jan 21, 2019 Vehicle Return Associate Progress Note Subjective: Patient reporting she is having right hip pain with ambulation and would like her pain medication scheduled. REVIEW OF SYSTEMS: The following is a completed review of systems and has been reviewed. Review of systems otherwise unremarkable. PAIN: Patient self reports +right hip pain EYES: No recent vision changes EARS, NOSE, & THROAT: No throat pain, or dysphagia, or rhinorrhea CARDIOVASCULAR: Denies chest pain or palpitations] PULMONARY: Denies shortness of breath, +cough GASTROINTESTINAL: Denies constipation/diarrhea GENITOURINARY: denies dysuria MUSCULOSKELETAL: s/p right hip ORIF NEUROLOGICAL:denies tremor or seizures HEMATOLOGICAL: denies easy bruising SKIN: right hip incision PSYCHIATRIC: Unremarkable All other review of systems found to be negative. PHYSICAL EXAMINATION: VITAL SIGNS: Please see below. GENERAL: Pleasant and cooperative. No acute distress. thin HEENT: PERRL. Extraocular movements intact. Clear conjunctiva CARDIOVASCULAR: Regular rate and rhythm. No murmurs, rubs, or gallops LUNGS: +scattered wheeze, productive cough ABDOMEN: Soft, nontender, nondistended. Positive bowel sounds. Normal active b owel sounds NEUROLOGICAL: Alert and oriented times three. Cranial nerves II through XII grossly intact. Sensation grossly intact EXTREMITIES: 5-\5 strength bilateral upper extremities. 5-\5 strength right ankle DF, EHL, and PF (limited due to recent surgery) 5-/5 strength in left lower extremity. (-) Kingston's bilat (+) kyphosis SKIN: right hip incision c/d/i, +scattered excoriations ASSESSMENT:63-year-old F with past medical history of COPD who presents status post fall with right hip fracture s/p ORIF PLAN: 1. Rehab- PT advance gait training, strengthen/stretch/maintain ROM bilat LE OT- strengthen/stretch/maintain ROM bilat teach energy conservation 2. CArdiac: no known cardiac hx 3. Resp: hx COPD with recent exacerbation, c/u breathing treatments, goal 02 88- 92% -smoker, c/u nicotine patch 4. Heme: macrocytic anemia in setting of chronic ETOH abuse, c/u folic acid and thiamine -will order FOBT -transfuse if Hgb <8 5. GI ppx: protonix 6. DVT ppx: Xarelto and TEDs 7. Pain: tylneol, oxycodone TID standing 8. ortho: s/p right hip fracture with ORIF-ortho consulted 9. Dispo: 01-24-19 to home, progressing quickly towards goals Allergies Coded Allergies: ENVIROMENTAL (Verified Allergy, Unknown, 01/11/15) Sulfa (Sulfonamide Antibiotics) (Verified Allergy, Unknown, 01/13/19) Vital Signs Vital Signs Date Time Temp Pulse Resp B/P (MAP) Pulse Ox O2 Delivery O2 Flow Rate FiO2 01/21/19 07:01 18 01/21/19 06:00 98.2 82 100/52 (68) 92 Room Air 01/20/19 08:00 2.0 Current Medications Current Medications Current Medications Medications (Trade) Dose Ordered Sig/Genny Route PRN Reason Start Time Stop Time Status Last Admin Dose Admin Acetaminophen (Tylenol Tab) 1,000 mg TID PO 01/19/19 21:00 01/21/19 09:12 Albuterol Sulfate (Proventil Neb) 2.5 mg Q2HP PRN NEB SOB/WHEEZING 01/19/19 16:30 Albuterol/ Ipratropium (Duoneb (Ipr 0.5mg/Alb 2.5mg)) 3 ml RQID NEB 01/19/19 20:00 01/21/19 11:23 Benzonatate (Tessalon Perles) 100 mg TID PO 01/19/19 21:00 01/21/19 09:12 Budesonide/ Formoterol Fumarate (Symbicort 80/ 4.5mcg) 2 puff BID INH 01/19/19 21:00 01/21/19 07:32 Cetirizine HCl (ZyrTEC) 10 mg DAILY PO 01/20/19 09:00 01/21/19 09:12 Fluticasone Propionate (Flonase 0.05% Nasal [place]) 1 spray BID NARES 01/19/19 21:00 01/21/19 09:13 Folic Acid (Folic Acid) 1 mg DAILY PO 01/20/19 09:00 01/21/19 09:12 Home Med (Med Rec Complete!) ASDIRECTED XX 01/19/19 15:45 01/19/19 15:34 DC Magnesium Hydroxide (Milk Of Magnesia) 30 ml DAILYPRN PRN PO CONSTIPATION 01/19/19 16:30 Montelukast Sodium (Singulair) 10 mg DAILY PO 01/20/19 09:00 01/21/19 09:12 Multivitamins (Theragram-M) 1 tab DAILY PO 01/20/19 09:00 01/21/19 09:12 Nicotine (Nicoderm Cq 21mg) 1 patch DAILY TD 01/20/19 09:00 01/21/19 09:11 Ondansetron HCl (Zofran) 4 mg Q6HP PRN PO NAUSEA 01/19/19 16:30 Oxycodone HCl (Roxicodone, Oxyir) 5 mg Q4HP PRN PO PAIN 01/19/19 16:30 01/21/19 06:25 Oxycodone HCl (Roxicodone, Oxyir) 10 mg Q4HP PRN PO SEVERE PAIN (PS 8-10) 01/19/19 16:30 01/19/19 23:19 Pantoprazole Sodium (Protonix) 40 mg DAILY PO 01/20/19 09:00 01/21/19 09:12 Rivaroxaban (Xarelto) 10 mg DAILY@18 PO 01/19/19 18:00 01/20/19 17:15 Senna/Docusate Sodium (Senokot S) 1 tab BID PO 01/19/19 21:00 01/21/19 09:12 Thiamine HCl (Thiamine HCl) 100 mg DAILY PO 01/20/19 09:00 01/21/19 09:12 JENNI LANGE MD Jan 21, 2019 12:35
[2019-01-21 14:00] VITALS: BP 105/61
--- NOTE | 2019-01-21 16:11 | IPNPDOC ---
Text Note Date of Service The patient was seen on 01/21/19. NOTE HISTORY OF PRESENT ILLNESS: Consulted on the ARU this morning. Ms. Ziegler denied any new or worsening symptoms at this time. She has been using her inhalers and Duoneb as prescribed and they help with her cough. She has been to PT this a.m. No problems there; pain is 'manageable.' She agrees she is progressing very well. ALLERGIES: Please see below. HOME MEDICATIONS: Please see below. PAST MEDICAL HISTORY: per HPI FAMILY HISTORY: Diabetes, Parkinson's disease SOCIAL HISTORY: Current smoker Denies current alcohol use. Previously a heavy drinker. REVIEW OF SYSTEMS: A 14-point ROS was obtained as is negative except as per HPI. PHYSICAL EXAMINATION: VITAL SIGNS: Please see below. General Exam: Positive: Alert, Cooperative, No Acute Distress. Thin and frail Eye Exam: Positive: Conjunctiva normal ENT Exam: Positive: Atraumatic, Mucous membr. moist/pink, Pharynx Normal Neck Exam: Positive: Supple; Negative: thyromegaly Chest Exam: Inspiratory wheeze Heart Exam: Positive: Rate Normal; Distant Heart Sounds Negative: Rubs Abdomen Exam: Positive: Normal bowel sounds, Soft Extremity Exam: ROM in the RUE grossly intact; able to maneuver with little to no pain over L hip Skin Exam: Positive: Nl turgor and temperature Neuro Exam: Speaks clearly Psych Exam: Positive: Mental status NL LABORATORY DATA: Please see below. Assessment/Plan: Ms Ziegler is a 63 year old female admitted to the ARU with a diagnosis of comminuted intertrochanteric Fx of the R hip on X-ray (occurred 01/13/2019). X- Ray in the ED also showed age-related osteopenia and degenerative changes. There was evidence for PVD. Ms Ziegler has a PMHx of COPD, CAD, HTN, Alcohol abuse, and sciatica, current smoker. She has a remote Hx of Hepatitis C. ORIF performed on 01/15/19 and started on DVT prophylaxis. Patient was provided nebulizers due to a COPD exacerbation. Patient has been placed on CIWA protocol per ARU due to her history of alcohol abuse. Right hip fracture: Management per ARU Provide adequate pain control COPD: Continue with DuoNeb, Symbicort and Singulair as prescribed. Monitor cough for worsening Patient counseled to quit smoking CAD: Continue Xarelto Encourage smoking cessation HTN: continue home medications Current smoker: Nicotine patches provided. Ensure patient has patches offered on d/c Alcohol Abuse: CIWA protocol VS,Fishbone, I+O VS, Fishbone, I+O Vital Signs Date Time Temp Pulse Resp B/P (MAP) Pulse Ox O2 Delivery O2 Flow Rate FiO2 01/21/19 15:04 16 01/21/19 14:00 97.3 96 105/61 (76) 100 Room Air 01/20/19 08:00 2.0 I&O- Last 24 Hours up to 6 AM 01/21/19 06:00 Intake Total 2040 ml Balance 2040 ml ATTENDING NOTE I have personally performed a face to face diagnostic evaluation on this patient. I have reviewed and agree with the care plan. YIN YOUNG PA-C Jan 21, 2019 16:11 AAMIR VILLA MD Jan 21, 2019 17:24
[2019-01-21] MEDS: RIVAROXABAN 10 MG TAB (XARELTO) PO SCH (16:42)
[2019-01-21] MEDS ORDERED: ACETAMINOPHEN 500 MG TAB PO SCH (21:00)
[2019-01-21] MEDS ORDERED: ACETAMINOPHEN TAB 650MG DOSE (2X325MG) PO SCH (21:25)
[2019-01-21] MEDS: ACETAMINOPHEN TAB 650MG DOSE (2X325MG) PO SCH (21:32)
[2019-01-21 22:00] VITALS: BP 101/60
[2019-01-22] MEDS ORDERED: oxyCODONE 5MG TAB PO ONE (04:00)
[2019-01-22 06:00] VITALS: BP 106/66
[2019-01-22] MEDS: oxyCODONE 5MG TAB PO PRN ×3 (07:51→22:37)
[2019-01-22] MEDS: IPRATROPIUM 0.5MG/ALBUTEROL 2.5MG INH SOL UD 3ML (DUONEB)(J7620) NEB SCH ×5 (07:55→21:07)
[2019-01-22] MEDS: SYMBICORT 80/4.5MCG INHALER 6GM INH SCH ×2 (07:55→21:07)
[2019-01-22] MEDS: FOLIC ACID 1 MG TAB PO SCH (09:34)
[2019-01-22] MEDS: CETIRIZINE (ZyrTEC) 10 MG TAB PO SCH (09:34)
[2019-01-22] MEDS: THIAMINE 100 MG TAB PO SCH (09:34)
[2019-01-22] MEDS: BENZONATATE 100 MG CAP PO SCH ×3 (09:34→21:26)
[2019-01-22] MEDS: MULTIVITAMINS/MINERALS THERAP 1 TAB PO SCH (09:34)
[2019-01-22] MEDS: SENOKOT S TAB PO SCH ×2 (09:34→21:26)
[2019-01-22] MEDS: PANTOPRAZOLE 40MG TAB (PROTONIX) PO SCH (09:35)
[2019-01-22] MEDS: MONTELUKAST 10 MG TAB PO SCH (09:35)
[2019-01-22] MEDS: NICOTINE 21MG/24HR 1 EA TRANSDERMAL TD SCH (09:36)
[2019-01-22] MEDS: ACETAMINOPHEN TAB 650MG DOSE (2X325MG) PO SCH ×4 (09:37→22:00)
[2019-01-22] MEDS: FLUTICASONE PROP 0.05% NASAL SPRAY 16 GM (FLONASE) NARES SCH ×2 (09:37→21:26)
--- NOTE | 2019-01-22 11:45 | IPNPDOC ---
PM&R Progress Note DATE OF SERVICE: Jan 22, 2019 [place] Progress Note Subjective: Patient reporting her cough is better and her pain better controlled with the scheduled oxycodone. She feels ready for room privileges and to return home Saturday after therapy. REVIEW OF SYSTEMS: The following is a completed review of systems and has been reviewed. Review of systems otherwise unremarkable. PAIN: Patient self reports +right hip pain EYES: No recent vision changes EARS, NOSE, & THROAT: No throat pain, or dysphagia, or rhinorrhea CARDIOVASCULAR: Denies chest pain or palpitations] PULMONARY: Denies shortness of breath, +cough GASTROINTESTINAL: Denies constipation/diarrhea GENITOURINARY: denies dysuria MUSCULOSKELETAL: s/p right hip ORIF NEUROLOGICAL:denies tremor or seizures HEMATOLOGICAL: denies easy bruising SKIN: right hip incision PSYCHIATRIC: Unremarkable All other review of systems found to be negative. PHYSICAL EXAMINATION: VITAL SIGNS: Please see below. GENERAL: Pleasant and cooperative. No acute distress. thin HEENT: PERRL. Extraocular movements intact. Clear conjunctiva CARDIOVASCULAR: Regular rate and rhythm. No murmurs, rubs, or gallops LUNGS: +scattered wheeze, productive cough ABDOMEN: Soft, nontender, nondistended. Positive bowel sounds. Normal active bowel sounds NEUROLOGICAL: Alert and oriented times three. Cranial nerves II through XII grossly intact. Sensation grossly intact EXTREMITIES: 5-\5 strength bilateral upper extremities. 5-\5 strength right ankle DF, EHL, and PF (limited due to recent surgery) 5-/5 strength in left lower extremity. (-) Kingston's bilat (+) kyphosis SKIN: right hip incision c/d/i, +scattered excoriations ASSESSMENT:63-year-old F with past medical history of COPD who presents status post fall with right hip fracture s/p ORIF PLAN: 1. Rehab- PT advance gait training, strengthen/stretch/maintain ROM bilat LE OT- strengthen/stretch/maintain ROM bilat teach energy conservation 2. CArdiac: no known cardiac hx 3. Resp: hx COPD with recent exacerbation, c/u breathing treatments, goal 02 88- 92% -smoker, c/u nicotine patch 4. Heme: macrocytic anemia in setting of chronic ETOH abuse, c/u folic acid and thiamine -ordered FOBT -transfuse if Hgb <8 5. GI ppx: protonix 6. DVT ppx: Xarelto and TEDs 7. Pain: tylneol, oxycodone TID standing 8. ortho: s/p right hip fracture with ORIF-ortho consulted 9. Dispo: 01-24-19 to home, progressing quickly towards goals Allergies Coded Allergies: ENVIROMENTAL (Verified Allergy, Unknown, 01/11/15) Sulfa (Sulfonamide Antibiotics) (Verified Allergy, Unknown, 01/13/19) Vital Signs Vital Signs Date Time Temp Pulse Resp B/P (MAP) Pulse Ox O2 Delivery O2 Flow Rate FiO2 01/22/19 08:21 18 Room Air 01/22/19 06:00 98.7 78 106/66 (79) 92 01/20/19 08:00 2.0 Current Medications Current Medications Current Medications Medications (Trade) Dose Ordered Sig/Genny Route PRN Reason Start Time Stop Time Status Last Admin Dose Admin Acetaminophen (Tylenol Tab) 650 mg TID PO 01/21/19 21:00 01/21/19 21:25 DC Acetaminophen (Tylenol Tab) 650 mg TID PO 01/21/19 21:00 01/22/19 09:37 Acetaminophen (Tylenol Tab) 650 mg TID PO 01/21/19 21:25 01/21/19 21:26 DC Acetaminophen (Tylenol Tab) 1,000 mg TID PO 01/19/19 21:00 01/21/19 16:31 DC 01/21/19 16:24 Albuterol Sulfate (Proventil Neb) 2.5 mg Q2HP PRN NEB SOB/WHEEZING 01/19/19 16:30 Albuterol/ Ipratropium (Duoneb (Ipr 0.5mg/Alb 2.5mg)) 3 ml RQID NEB 01/19/19 20:00 01/22/19 11:13 Benzonatate (Tessalon Perles) 100 mg TID PO 01/19/19 21:00 01/22/19 09:34 Budesonide/ Formoterol Fumarate (Symbicort 80/ 4.5mcg) 2 puff BID INH 01/19/19 21:00 01/22/19 07:55 Cetirizine HCl (ZyrTEC) 10 mg DAILY PO 01/20/19 09:00 01/22/19 09:34 Fluticasone Propionate (Flonase 0.05% Nasal [place]) 1 spray BID NARES 01/19/19 21:00 01/22/19 09:37 Folic Acid (Folic Acid) 1 mg DAILY PO 01/20/19 09:00 01/22/19 09:34 Home Med (Med Rec Complete!) ASDIRECTED XX 01/19/19 15:45 01/19/19 15:34 DC Magnesium Hydroxide (Milk Of Magnesia) 30 ml DAILYPRN PRN PO CONSTIPATION 01/19/19 16:30 Montelukast Sodium (Singulair) 10 mg DAILY PO 01/20/19 09:00 01/22/19 09:35 Multivitamins (Theragram-M) 1 tab DAILY PO 01/20/19 09:00 01/22/19 09:34 Nicotine (Nicoderm Cq 21mg) 1 patch DAILY TD 01/20/19 09:00 01/22/19 09:36 Ondansetron HCl (Zofran) 4 mg Q6HP PRN PO NAUSEA 01/19/19 16:30 Oxycodone HCl (Roxicodone, Oxyir) 5 mg 0700,1200,1700 PRN PO PAIN 01/21/19 16:30 01/22/19 07:51 Oxycodone HCl (Roxicodone, Oxyir) 5 mg Q4HP PRN PO PAIN 01/19/19 16:30 01/21/19 16:31 DC 01/21/19 14:34 Oxycodone HCl (Roxicodone, Oxyir) 5 mg QHSP PRN PO PAIN 01/21/19 16:30 01/21/19 21:32 Oxycodone HCl (Roxicodone, Oxyir) 10 mg Q4HP PRN PO SEVERE PAIN (PS 8-10) 01/19/19 16:30 01/21/19 16:31 DC 01/19/19 23:19 Pantoprazole Sodium (Protonix) 40 mg DAILY PO 01/20/19 09:00 01/22/19 09:35 Rivaroxaban (Xarelto) 10 mg DAILY@18 PO 01/19/19 18:00 01/21/19 16:42 Senna/Docusate Sodium (Senokot S) 1 tab BID PO 01/19/19 21:00 12/12/19 09:34 Thiamine HCl (Thiamine HCl) 100 mg DAILY PO 01/20/19 09:00 01/22/19 09:34 JENNI LANGE MD Jan 22, 2019 11:44
[2019-01-22 14:00] VITALS: BP 110/59
--- NOTE | 2019-01-22 15:00 | IPNPDOC ---
Text Note Date of Service The patient was seen on 01/22/19. NOTE Objective: Patient sitting up in bed, stating that she is unchanged. Pain is persistent but not worse than prior and has been progressing with physical therapy. No acute events reported overnight. Subjective: PHYSICAL EXAMINATION: VITAL SIGNS: Please see below. General Exam: Positive: Alert, Cooperative, No Acute Distress. Thin and frail Eye Exam: Positive: Conjunctiva normal ENT Exam: Positive: Atraumatic, Mucous membrane. moist/pink, Pharynx Normal Neck Exam: Positive: Supple; Negative: thyromegaly Chest Exam: Inspiratory wheeze Heart Exam: Positive: Rate Normal; Distant Heart Sounds Negative: Rubs Abdomen Exam: Positive: Normal bowel sounds, Soft Extremity Exam: ROM in the RUE grossly intact; able to maneuver with little to no pain over L hip Skin Exam: Positive: Nl turgor and temperature Neuro Exam: Speaks clearly Psych Exam: Positive: Mental status NL LABORATORY DATA: Please see below. Assessment/Plan: Ms Ziegler is a 63 year old female admitted to the ARU with a diagnosis of comminuted intertrochanteric Fx of the R hip on X-ray (occurred 01/13/2019). X- Ray in the ED also showed age-related osteopenia and degenerative changes. There was evidence for PVD. Ms Ziegler has a PMHx of COPD, CAD, HTN, Alcohol abuse, and sciatica, current smoker. She has a remote Hx of Hepatitis C. ORIF performed on 01/15/19 and started on DVT prophylaxis. Patient was provided nebulizers due to a COPD exacerbation. Patient has been placed on CIWA protocol per ARU due to her history of alcohol abuse. Patient has had a pretty benign course since being on the ARU. She is progressing well and feels better each day. Right hip fracture: Management and Rehab per ARU Provide adequate pain control COPD: Continue with DuoNeb, Symbicort and Singulair as prescribed. Monitor cough for worsening Patient counseled to quit smoking CAD: Continue Xarelto Encourage smoking cessation HTN: continue home medications Current smoker: Nicotine patches provided. Ensure patient has patches offered on d/c Alcohol Abuse: CIWA protocol VS,Fishbone, I+O VS, Fishbone, I+O Vital Signs Date Time Temp Pulse Resp B/P (MAP) Pulse Ox O2 Delivery O2 Flow Rate FiO2 01/22/19 14:00 97.9 93 18 110/59 (76) 92 Room Air 01/20/19 08:00 2.0 I&O- Last 24 Hours up to 6 AM 01/22/19 06:00 Intake Total 1570 ml Output Total 0 ml Balance 1570 ml YIN YOUNG PA-C Jan 22, 2019 15:00 AAMIR VILLA MD Jan 22, 2019 16:56
[2019-01-22] MEDS: RIVAROXABAN 10 MG TAB (XARELTO) PO SCH (18:02)
[2019-01-22 21:00] VITALS: BP 120/69
[2019-01-23 06:10] VITALS: BP_SYST 103; BP_SYST 165; BP_DIAS 67; BP_DIAS 70
[2019-01-23] MEDS: oxyCODONE 5MG TAB PO PRN ×4 (06:22→22:51)
[2019-01-23 06:46] LABS: BASO % 0.4 % (0.0-1.0); EOS % 0.4 % (0.0-3.0); HEMATOCRIT 30.6 % (36.0-47.0); LYMPH # 1.2 10^3/uL (1.5-5.0); LYMPH % 11.4 % (24.0-44.0); MEAN CORPUSCULAR HEMOGLOBIN 30.9 pg (27.0-33.0); MEAN CORPUSCULAR HGB CONC 32.7 g/dl (32.0-36.5); MEAN CORPUSCULAR VOLUME 94.4 fl (80.0-96.0); MONO # 0.9 10^3/uL (0.0-0.8); MONO % 8.4 % (0.0-5.0); NEUTROPHILS # 8.5 10^3/uL (1.5-8.5); NEUTROPHILS % 78.9 % (36.0-66.0); PLATELET COUNT, AUTOMATED 427 10^3/uL (150-450); RED BLOOD COUNT 3.24 10^6/uL (4.00-5.40); WHITE BLOOD COUNT 10.7 10^3/uL (4.0-10.0)
[2019-01-23 07:14] LABS: BLOOD UREA NITROGEN 4 MG/DL (7-18); CALCIUM LEVEL 9.1 MG/DL (8.8-10.2); CARBON DIOXIDE LEVEL 27 MEQ/L (21-32); CHLORIDE LEVEL 100 MEQ/L (98-107); CREATININE FOR GFR 0.34 MG/DL (0.55-1.30); GLOMERULAR FILTRATION RATE > 60.0 (>45); GLUCOSE, FASTING 90 MG/DL (70-100); POTASSIUM SERUM 3.6 MEQ/L (3.5-5.1); SODIUM LEVEL 133 MEQ/L (136-145)
[2019-01-23] MEDS: SYMBICORT 80/4.5MCG INHALER 6GM INH SCH ×2 (07:21→20:58)
[2019-01-23] MEDS: NICOTINE 21MG/24HR 1 EA TRANSDERMAL TD SCH (07:25)
[2019-01-23] MEDS: FOLIC ACID 1 MG TAB PO SCH (07:25)
[2019-01-23] MEDS: BENZONATATE 100 MG CAP PO SCH ×3 (07:26→20:35)
[2019-01-23] MEDS: ACETAMINOPHEN TAB 650MG DOSE (2X325MG) PO SCH ×3 (07:26→20:35)
[2019-01-23] MEDS: MULTIVITAMINS/MINERALS THERAP 1 TAB PO SCH (07:26)
[2019-01-23] MEDS: FLUTICASONE PROP 0.05% NASAL SPRAY 16 GM (FLONASE) NARES SCH ×2 (07:26→20:37)
[2019-01-23] MEDS: CETIRIZINE (ZyrTEC) 10 MG TAB PO SCH (07:26)
[2019-01-23] MEDS: MONTELUKAST 10 MG TAB PO SCH (07:26)
[2019-01-23] MEDS: PANTOPRAZOLE 40MG TAB (PROTONIX) PO SCH (07:26)
[2019-01-23] MEDS: THIAMINE 100 MG TAB PO SCH (07:26)
[2019-01-23] MEDS: SENOKOT S TAB PO SCH ×2 (07:26→20:35)
[2019-01-23] MEDS ORDERED: THIA100TA PO (07:35)
--- NOTE | 2019-01-23 11:13 | IPNPDOC ---
PM&R Progress Note DATE OF SERVICE: Jan 23, 2019 [employer] Progress Note Subjective: Patient reporting she is ready to go home tomorrow and will attend outpatient therapy. REVIEW OF SYSTEMS: The following is a completed review of systems and has been reviewed. Review of systems otherwise unremarkable. PAIN: Patient self reports +right hip pain EYES: No recent vision changes EARS, NOSE, & THROAT: No throat pain, or dysphagia, or rhinorrhea CARDIOVASCULAR: Denies chest pain or palpitations PULMONARY: Denies shortness of breath, +cough (improving) GASTROINTESTINAL: Denies constipation/diarrhea GENITOURINARY: denies dysuria MUSCULOSKELETAL: s/p right hip ORIF NEUROLOGICAL:denies tremor or seizures HEMATOLOGICAL: denies easy bruising SKIN: right hip incision PSYCHIATRIC: Unremarkable All other review of systems found to be negative. PHYSICAL EXAMINATION: VITAL SIGNS: Please see below. GENERAL: Pleasant and cooperative. No acute distress. thin HEENT: PERRL. Extraocular movements intact. Clear conjunctiva CARDIOVASCULAR: Regular rate and rhythm. No murmurs, rubs, or gallops LUNGS: +scattered wheeze, productive cough ABDOMEN: Soft, nontender, nondistended. Positive bowel sounds. Normal active bowel sounds NEUROLOGICAL: Alert and oriented times three. Cranial nerves II through XII grossly intact. Sensation grossly intact EXTREMITIES: 5-\5 strength bilateral upper extremities. 5-\5 strength right ankle DF, EHL, and PF (limited due to recent surgery) 5-/5 strength in left lower extremity. (-) Kingston's bilat (+) kyphosis SKIN: right hip incision c/d/i, +scattered excoriations ASSESSMENT:63-year-old F with past medical history of COPD who presents status post fall with right hip fracture s/p ORIF PLAN: 1. Rehab- PT advance gait training, strengthen/stretch/maintain ROM bilat LE OT- strengthen/stretch/maintain ROM bilat teach energy conservation 2. CArdiac: no known cardiac hx 3. Resp: hx COPD with recent exacerbation, c/u breathing treatments, goal 02 88- 92% -smoker, c/u nicotine patch 4. Heme: macrocytic anemia in setting of chronic ETOH abuse, c/u folic acid and thiamine -transfuse if Hgb <8 5. GI ppx: protonix 6. DVT ppx: Xarelto and TEDs 7. Pain: tylneol, oxycodone TID standing 8. ortho: s/p right hip fracture with ORIF-ortho consulted, will f/u outpatient for staple removal 9. Hyponatremia: will fluid restrict to 1800cc and have her f/u with PMD 9. Dispo: 01-24-19 to home, progressing quickly towards goals Allergies Coded Allergies: ENVIROMENTAL (Verified Allergy, Unknown, 01/11/15) Sulfa (Sulfonamide Antibiotics) (Verified Allergy, Unknown, 01/13/19) Vital Signs Vital Signs Date Time Temp Pulse Resp B/P (MAP) Pulse Ox O2 Delivery O2 Flow Rate FiO2 01/23/19 06:52 18 01/23/19 06:10 98.6 87 103/67 (79) 95 Room Air 01/20/19 08:00 2.0 Laboratory Data CBC/BMP Laboratory Tests 01/23/19 06:27 Labs 24H Laboratory Tests 2 01/23/19 06:27: Immature Granulocyte % (Auto) 0.5, Neutrophils (%) (Auto) 78.9H, Lymphocytes (%) (Auto) 11.4L, Monocytes (%) (Auto) 8.4H, Eosinophils (%) (Auto) 0.4, Basophils (%) (Auto) 0.4, Neutrophils # (Auto) 8.5, Lymphocytes # (Auto) 1.2L, Monocytes # (Auto) 0.9H, Eosinophils # (Auto) 0.0, Basophils # (Auto) 0.0, Nucleated Red Blood Cells % (auto) 0.0, Anion Gap 6L, Glomerular Filtration Rate > 60.0, Calcium Level 9.1 Current Medications Current Medications Current Medications Medications (Trade) Dose Ordered Sig/Genny Route PRN Reason Start Time Stop Time Status Last Admin Dose Admin Acetaminophen (Tylenol Tab) 650 mg TID PO 01/21/19 21:00 01/21/19 21:25 DC Acetaminophen (Tylenol Tab) 650 mg TID PO 01/21/19 21:00 01/23/19 07:26 Acetaminophen (Tylenol Tab) 650 mg TID PO 01/21/19 21:25 01/21/19 21:26 DC Acetaminophen (Tylenol Tab) 1,000 mg TID PO 01/19/19 21:00 01/21/19 16:31 DC 01/21/19 16:24 Albuterol Sulfate (Proventil Neb) 2.5 mg Q2HP PRN NEB SOB/WHEEZING 01/19/19 16:30 Albuterol/ Ipratropium (Duoneb (Ipr 0.5mg/Alb 2.5mg)) 3 ml RQID NEB 01/19/19 20:00 01/22/19 16:00 Benzonatate (Tessalon Perles) 100 mg TID PO 01/19/19 21:00 01/23/19 07:26 Budesonide/ Formoterol Fumarate (Symbicort 80/ 4.5mcg) 2 puff BID INH 01/19/19 21:00 01/23/19 07:21 Cetirizine HCl (ZyrTEC) 10 mg DAILY PO 01/20/19 09:00 01/23/19 07:26 Fluticasone Propionate (Flonase 0.05% Nasal [place]) 1 spray BID NARES 01/19/19 21:00 01/23/19 07:26 Folic Acid (Folic Acid) 1 mg DAILY PO 01/20/19 09:00 01/23/19 07:25 Home Med (Med Rec Complete!) ASDIRECTED XX 01/19/19 15:45 01/19/19 15:34 DC Magnesium Hydroxide (Milk Of Magnesia) 30 ml DAILYPRN PRN PO CONSTIPATION 01/19/19 16:30 Montelukast Sodium (Singulair) 10 mg DAILY PO 01/20/19 09:00 01/23/19 07:26 Multivitamins (Theragram-M) 1 tab DAILY PO 01/20/19 09:00 01/23/19 07:26 Nicotine (Nicoderm Cq 21mg) 1 patch DAILY TD 01/20/19 09:00 01/23/19 07:25 Ondansetron HCl (Zofran) 4 mg Q6HP PRN PO NAUSEA 01/19/19 16:30 Oxycodone HCl (Roxicodone, Oxyir) 5 mg 0700,1200,1700 PRN PO PAIN 01/21/19 16:30 01/23/19 06:22 Oxycodone HCl (Roxicodone, Oxyir) 5 mg Q4HP PRN PO PAIN 01/19/19 16:30 01/21/19 16:31 DC 01/21/19 14:34 Oxycodone HCl (Roxicodone, Oxyir) 5 mg QHSP PRN PO PAIN 01/21/19 16:30 01/22/19 22:37 Oxycodone HCl (Roxicodone, Oxyir) 10 mg Q4HP PRN PO SEVERE PAIN (PS 8-10) 01/19/19 16:30 01/21/19 16:31 DC 01/19/19 23:19 Pantoprazole Sodium (Protonix) 40 mg DAILY PO 01/20/19 09:00 01/23/19 07:26 Rivaroxaban (Xarelto) 10 mg DAILY@18 PO 01/19/19 18:00 01/22/19 18:02 Senna/Docusate Sodium (Senokot S) 1 tab BID PO 01/19/19 21:00 01/23/19 07:26 Thiamine HCl (Thiamine HCl) 100 mg DAILY PO 01/20/19 09:00 01/23/19 07:26 JENNI LANGE MD Jan 23, 2019 11:13
[2019-01-23] MEDS: IPRATROPIUM 0.5MG/ALBUTEROL 2.5MG INH SOL UD 3ML (DUONEB)(J7620) NEB SCH ×3 (11:19→20:00)
--- NOTE | 2019-01-23 12:52 | IPNPDOC ---
Subjective Date Seen The patient was seen on 01/23/19. Subjective Chief Complaint/HPI Ms. Ziegler is a pleasant 63 year old female admitted to the ARU with a diagnosis of comminuted intertrochanteric Fx of the R hip on X-ray (occurred 01/13/2019). Ms. Ziegler denied any new or worsening symptoms this morning (see ROS). She agrees she has progressed well since being on the ARU and is looking forward to going home tomorrow. General: Reports: Normal Appetite; Denies: Chills, Night Sweats, Fatigue, Malaise Constitutional: Denies: Chills, Fever, Night Sweats Eyes: Denies: Pain ENT: Denies: Head Aches Skin: Denies: Rash Pulmonary: Denies: Dyspnea, Cough Cardiovascular: Denies: Chest Pain, Palpitations, Orthopnea, Lt Headedness Gastrointestinal: Denies: Abdominal Pain Genitourinary: Denies: Dysuria Hematologic: Denies: Bruising Musculoskeletal: Reports: Joint Pain (pain over R hip is unchanged ) Psych: Reports: Mood Normal Objective Physical Examination General Exam: Positive: Alert, Cooperative, No Acute Distress Eye Exam: Positive: Conjunctiva & lids normal ENT Exam: Positive: Atraumatic Chest Exam: Positive: Clear to auscultation (mild inspiratory wheeze ) Heart Exam: Positive: Rate Normal, Other (Distant heasrt sounds ); Negative: Rubs Abdomen Exam: Positive: Normal bowel sounds, Soft; Negative: Tenderness Extremity Exam: Positive: Other (ROM in the RUE grossly intact; able to maneuver with little to no pain over R hip); Negative: Clubbing, Cyanosis, Edema Skin Exam: Positive: Nl turgor and temperature Psych Exam: Positive: Mood NL Assessment /Plan Assessment Ms Ziegler is a 63 year old female admitted to the ARU with a diagnosis of comminuted intertrochanteric Fx of the R hip on X-ray (occurred 01/13/2019). X- Ray in the ED also showed age-related osteopenia and degenerative changes. There was evidence for PVD. Ms Ziegler has a PMHx of COPD, CAD, HTN, Alcohol abuse, and sciatica, current smoker. She has a remote Hx of Hepatitis C. ORIF performed on 01/15/19 and started on DVT prophylaxis. Patient was provided nebulizers due to a COPD exacerbation. Patient has been placed on CIWA protocol per ARU due to her history of alcohol abuse. Patient has had a pretty benign course since being on the ARU. She is progressing well and feels better each day. Right hip fracture: Management and Rehab per ARU Provide adequate pain control D/C 01/24/19 per ARU COPD: Continue with DuoNeb, Symbicort and Singulair as prescribed. Monitor cough for worsening Patient counseled to quit smoking CAD: Continue Xarelto Encourage smoking cessation HTN: continue home medications Current smoker: Nicotine patches provided. Ensure patient has patches offered on d/c Alcohol Abuse: CIWA protocol Plan/VTE VTE Prophylaxis Ordered?: Yes (Currently takes Xarelto 10mg QDAY) Plan Diet: Continue Current Activity: Continue Current Therapy: PT VS, I&O, 24H, Fishbone Vital Signs/I&O Vital Signs Date Time Temp Pulse Resp B/P (MAP) Pulse Ox O2 Delivery O2 Flow Rate FiO2 01/23/19 12:08 16 01/23/19 06:10 98.6 87 103/67 (79) 95 Room Air 01/20/19 08:00 2.0 I&O- Last 24 Hours up to 6 AM 01/23/19 06:00 Intake Total 960 ml Output Total 0 ml Balance 960 ml Laboratory Data 24H LABS Laboratory Tests 2 01/23/19 06:27: Immature Granulocyte % (Auto) 0.5, Neutrophils (%) (Auto) 78.9H, Lymphocytes (%) (Auto) 11.4L, Monocytes (%) (Auto) 8.4H, Eosinophils (%) (Auto) 0.4, Basophils (%) (Auto) 0.4, Neutrophils # (Auto) 8.5, Lymphocytes # (Auto) 1.2L, Monocytes # (Auto) 0.9H, Eosinophils # (Auto) 0.0, Basophils # (Auto) 0.0, Nucleated Red Blood Cells % (auto) 0.0, Anion Gap 6L, Glomerular Filtration Rate > 60.0, Calcium Level 9.1 CBC/BMP Laboratory Tests 01/23/19 06:27 ATTENDING NOTE I have personally performed a face to face diagnostic evaluation on this patient. I have reviewed and agree with the care plan. YIN YOUNG PA-C Jan 23, 2019 12:52 AAMIR VILLA MD Jan 23, 2019 18:40
[2019-01-23 14:00] VITALS: BP 102/63
[2019-01-23] MEDS: RIVAROXABAN 10 MG TAB (XARELTO) PO SCH (17:03)
[2019-01-23 20:35] VITALS: BP 134/71
[2019-01-24 05:35] VITALS: BP 121/83
[2019-01-24] MEDS ORDERED: ACETAMINOPHEN TAB 650MG DOSE (2X325MG) PO ONE (05:45)
[2019-01-24] MEDS: oxyCODONE 5MG TAB PO PRN ×4 (06:35→23:40)
[2019-01-24 06:52] VITALS: BP 96/60
[2019-01-24] MEDS: IPRATROPIUM 0.5MG/ALBUTEROL 2.5MG INH SOL UD 3ML (DUONEB)(J7620) NEB SCH ×4 (08:00→20:00)
[2019-01-24] MEDS: SYMBICORT 80/4.5MCG INHALER 6GM INH SCH ×2 (08:11→20:20)
[2019-01-24] MEDS: MULTIVITAMINS/MINERALS THERAP 1 TAB PO SCH (08:12)
[2019-01-24] MEDS: CETIRIZINE (ZyrTEC) 10 MG TAB PO SCH (08:12)
[2019-01-24] MEDS: THIAMINE 100 MG TAB PO SCH (08:12)
[2019-01-24] MEDS: BENZONATATE 100 MG CAP PO SCH ×3 (08:12→21:00)
[2019-01-24] MEDS: MONTELUKAST 10 MG TAB PO SCH (08:12)
[2019-01-24] MEDS: FOLIC ACID 1 MG TAB PO SCH (08:12)
[2019-01-24] MEDS: PANTOPRAZOLE 40MG TAB (PROTONIX) PO SCH (08:12)
[2019-01-24] MEDS: SENOKOT S TAB PO SCH ×2 (08:12→21:00)
[2019-01-24] MEDS: FLUTICASONE PROP 0.05% NASAL SPRAY 16 GM (FLONASE) NARES SCH ×2 (08:13→21:01)
[2019-01-24] MEDS: NICOTINE 21MG/24HR 1 EA TRANSDERMAL TD SCH (08:13)
--- NOTE | 2019-01-24 08:44 | REP ---
Chest x-ray: Two views. History: Dyspnea and fever. Comparison chest x-ray: January 13, 2019. Findings: The lungs are quite hyperinflated consistent with COPD but free of infiltrate. Pleural angles are sharp. Heart is not enlarged. Pulmonary vasculature is not increased. No significant bony abnormality. Impression: Marked hyperinflation consistent with COPD. Otherwise no acute disease. Electronically Signed by Jori Omalley MD 01/24/2019 08:35 A
[2019-01-24] MEDS: ACETAMINOPHEN TAB 650MG DOSE (2X325MG) PO SCH ×3 (11:55→21:00)
--- NOTE | 2019-01-24 13:40 | IPNPDOC ---
Date Seen The patient was seen on 01/24/19. Progress Note SUBJECTIVE: Patient seen ambulating comfortably with PT this morning. Denies any complaints apart from the hip pain she has but feels well otherwise. Reportedly had multiple fevers overnight with Tmax 103.2 and had now resolved. Slight bump in WBC 10.7 this morning but otherwise clinically well without any symptoms. CXR shows no acute process. OBJECTIVE PHYSICAL EXAMINATION: VITAL SIGNS: Please see below. General: No acute distress, Alert Eyes: Normal sclera, EOMI, LILY HENT: Atraumatic Cardiovascular: Normal rate, normal rhythm. Pulmonary: Clear to auscultation b/l, no wheezing GI: Soft, nontender, nondistended Skin: Warm and dry MSK: R. hip tenderness. Dressing c/d/i. Reduced ROM R. hip 2/2 pain. Neuro: CN grossly intact. No focal deficits. Psych: oriented x 3 LABORATORY DATA, IMAGING STUDIES, MICROBIOLOGY: Please see below. DVT prophylaxis ordered?: Xarelto ASSESSMENT AND PLAN: 1. Fever - resolved. Possibly 2/2 atelectasis. - Isolated with borderline leukocytosis. - Clinical well without any source of infection. CXR without acute pathology. No urinary complaints. - If recurs, would recommend getting blood cultures. - Monitor and repeat bloodwork. would not start on any antibiotics at this time. 2. R. hip fracture - Pain control. - c/w PT. 3. COPD - c/w nebs PRN. Symbicort and Singular. 4. CAD - c/w home meds 5. HTN? - BP controlled. Has not been on any meds. 6. Tobacco user - nicotine patches DISPOSITION: Home likely on Saturday. VS, I&O, 24H, [place] Vital Signs/I&O Vital Signs Date Time Temp Pulse Resp B/P (MAP) Pulse Ox O2 Delivery O2 Flow Rate FiO2 01/24/19 11:55 18 Nasal Cannula 2.0 01/24/19 08:41 98.4 01/24/19 06:52 103 96/60 (72) 93 I&O- Last 24 Hours up to 6 AM 01/24/19 06:00 Intake Total 1080 ml Output Total 0 ml Balance 1080 ml Laboratory Data 24H LABS Laboratory Tests 2 01/24/19 06:44: Bedside Glucose (Misc Panel) 117H AAMIR VILLA MD Jan 24, 2019 13:40
[2019-01-24 14:00] VITALS: BP 101/66
[2019-01-24] MEDS: RIVAROXABAN 10 MG TAB (XARELTO) PO SCH (17:08)
[2019-01-24 20:30] VITALS: BP 114/61
[2019-01-25] VITALS (7 sets, daily range): BP systolic 60–92; BP diastolic 40–60
[2019-01-25 06:58] LABS: HEMATOCRIT 30.8 % (36.0-47.0); MEAN CORPUSCULAR HEMOGLOBIN 30.9 pg (27.0-33.0); MEAN CORPUSCULAR HGB CONC 32.5 g/dl (32.0-36.5); MEAN CORPUSCULAR VOLUME 95.1 fl (80.0-96.0); PLATELET COUNT, AUTOMATED 407 10^3/uL (150-450); RED BLOOD COUNT 3.24 10^6/uL (4.00-5.40)
[2019-01-25 07:03] LABS: WHITE BLOOD COUNT 35.3 10^3/uL (4.0-10.0)
[2019-01-25] MEDS: SYMBICORT 80/4.5MCG INHALER 6GM INH SCH ×2 (07:20→19:31)
[2019-01-25] MEDS: IPRATROPIUM 0.5MG/ALBUTEROL 2.5MG INH SOL UD 3ML (DUONEB)(J7620) NEB SCH ×4 (07:20→19:31)
[2019-01-25 07:32] LABS: BLOOD UREA NITROGEN 10 MG/DL (7-18); CALCIUM LEVEL 8.9 MG/DL (8.8-10.2); CARBON DIOXIDE LEVEL 27 MEQ/L (21-32); CHLORIDE LEVEL 99 MEQ/L (98-107); CREATININE FOR GFR 0.66 MG/DL (0.55-1.30); GLOMERULAR FILTRATION RATE > 60.0 (>45); GLUCOSE, FASTING 98 MG/DL (70-100); POTASSIUM SERUM 4.1 MEQ/L (3.5-5.1); SODIUM LEVEL 134 MEQ/L (136-145)
[2019-01-25] MEDS: oxyCODONE 5MG TAB PO PRN ×3 (07:32→17:27)
[2019-01-25 07:37] LABS: LYMPHOCYTES 6 % (16-44); NEUTROPHILS 91 % (28-66)
[2019-01-25 07:38] LABS: PLATELET ESTIMATE NORMAL (NORMAL)
[2019-01-25 07:39] LABS: DOHLE BODIES 1+; TOXIC GRANULATION 1+
[2019-01-25 07:40] LABS: ANISOCYTOSIS 1+
[2019-01-25 08:52] LABS: HEMATOCRIT 25.4 % (36.0-47.0); HEMOGLOBIN 8.4 g/dl (12.0-15.5); MEAN CORPUSCULAR HEMOGLOBIN 31.3 pg (27.0-33.0); MEAN CORPUSCULAR HGB CONC 33.1 g/dl (32.0-36.5); MEAN CORPUSCULAR VOLUME 94.8 fl (80.0-96.0); PLATELET COUNT, AUTOMATED 388 10^3/uL (150-450); RED BLOOD COUNT 2.68 10^6/uL (4.00-5.40)
[2019-01-25] MEDS: SENOKOT S TAB PO SCH ×2 (09:00→20:41)
[2019-01-25] MEDS: MULTIVITAMINS/MINERALS THERAP 1 TAB PO SCH (09:09)
[2019-01-25] MEDS: ACETAMINOPHEN TAB 650MG DOSE (2X325MG) PO SCH ×3 (09:09→20:41)
[2019-01-25] MEDS: THIAMINE 100 MG TAB PO SCH (09:09)
[2019-01-25] MEDS: CETIRIZINE (ZyrTEC) 10 MG TAB PO SCH (09:09)
[2019-01-25] MEDS: NICOTINE 21MG/24HR 1 EA TRANSDERMAL TD SCH (09:09)
[2019-01-25] MEDS: FOLIC ACID 1 MG TAB PO SCH (09:09)
[2019-01-25] MEDS: PANTOPRAZOLE 40MG TAB (PROTONIX) PO SCH (09:09)
[2019-01-25] MEDS: BENZONATATE 100 MG CAP PO SCH ×3 (09:09→20:41)
[2019-01-25] MEDS: FLUTICASONE PROP 0.05% NASAL SPRAY 16 GM (FLONASE) NARES SCH ×2 (09:10→20:41)
[2019-01-25] MEDS: MONTELUKAST 10 MG TAB PO SCH (09:10)
[2019-01-25 09:18] LABS: WHITE BLOOD COUNT 31.1 10^3/uL (4.0-10.0)
--- NOTE | 2019-01-25 10:46 | IPNPDOC ---
Date Seen The patient was seen on 01/25/19. Progress Note SUBJECTIVE: Patient reported no complaints today, stated that she feels well. WBC increased to 35 this morning however. Had been afebrile overnight but she does get tylenol for pain. Denies feeling ill, urinary symptoms, or any complaints. OBJECTIVE PHYSICAL EXAMINATION: VITAL SIGNS: Please see below. General: No acute distress, Alert Eyes: Normal sclera, EOMI, LILY HENT: Atraumatic Cardiovascular: Normal rate, normal rhythm. Pulmonary: Clear to auscultation b/l, no wheezing GI: Soft, nontender, nondistended Skin: Warm and dry MSK: R. hip tenderness. Dressing c/d/i. Reduced ROM R. hip 2/2 pain. Neuro: CN grossly intact. No focal deficits. Psych: oriented x 3 LABORATORY DATA, IMAGING STUDIES, MICROBIOLOGY: Please see below. DVT prophylaxis ordered?: Juan Alberto ASSESSMENT AND PLAN: 1. Leukocytosis - with neutrophilia. No known suspicious source of infection at this time however. - Denies any urinary complaints, to get UA w/ reflex culture. - Blood cultures obtained. Start on broad spectrum at this time, consider ID consultation in AM. - CXR clear, R. hip wound appear to be clean with no erythema or signs of infection. - Repeat CBC in AM. de-escalate Abx base on blood culture results. 2. R. hip fracture - Pain control. - c/w PT. 3. COPD - c/w nebs PRN. Symbicort and Singular. 4. CAD - c/w home meds 5. HTN? - BP controlled. Has not been on any meds. 6. Tobacco user - nicotine patches DISPOSITION: Home when medically clear. VS, I&O, 24H, Fishbone Vital Signs/I&O Vital Signs Date Time Temp Pulse Resp B/P (MAP) Pulse Ox O2 Delivery O2 Flow Rate FiO2 01/25/19 08:30 18 01/25/19 06:12 92/60 (71) 01/25/19 05:40 98.3 86 94 Room Air 01/24/19 14:00 2.0 I&O- Last 24 Hours up to 6 AM 01/25/19 06:00 Intake Total 1560 ml Output Total 0 ml Balance 1560 ml Laboratory Data 24H LABS Laboratory Tests 2 01/25/19 06:45: Neutrophils # (Auto) , Nucleated Red Blood Cells % (auto) 0.0, Neutrophils 91H, Band Neutrophils 3, Lymphocytes (Manual) 6L, Anisocytosis 1+, Toxic Granulation 1+, Dohle Bodies 1+, Platelet Estimate NORMAL, Anion Gap 8, Glomerular Filtration Rate > 60.0, Calcium Level 8.9 01/25/19 07:32: Lactic Acid Level 1.6 01/25/19 08:33: Nucleated Red Blood Cells % (auto) 0.0 CBC/BMP Laboratory Tests 01/25/19 06:45 01/25/19 08:33 Microbiology Microbiology 01/25/19 Blood Culture, Received Pending 01/25/19 Blood Culture, Received Pending 01/24/19 Stool Occult Blood (GRACIELA) - Final, Complete VILLA,AAMIR Molina MD Jan 25, 2019 10:46
[2019-01-25] MEDS: PIPERACILLIN/TAZOBACTAM SOD 3.375 GM in D5W MINI-BAG PLUS 50 ML IV SCH ×3 (11:25→22:13)
[2019-01-25] MEDS ORDERED: VANCOMYCIN HCL 1,000 MG, VIAL MATE ADAPTER 1 EACH in D5W 250 ML IV ONE (12:00)
--- NOTE | 2019-01-25 15:48 | PHACANCOPD ---
PHARMACY VANCOMYCIN DOSING Pt Demographics Demographics Patient Age:63 , Weight:39.700 , Gender: female Adjusted Body Weight Date: 01/25/19, Adjusted Body Weight: Kg Events Past 24 Hours Events Past 24 Hours: YES: Fever, Elevation in WBC; NO: Dialysis, Diuretic Therapy, Change in CrCl, Pending Diagnostics, Pending Procedures, Other Vancomycin Vancomycin indication: Empiric treatment for sepsis Vancomycin Target Ranges: 15-20 mcg/ml Vancomycin Load Y/N: Yes Load Dose Date Time Vancomycin Load Dose: 1 gram Date: 01/25/19 Time: 1200 Vancomycin Dose Date: 01/25/19. Current Vancomycin Dose: [ 500mg q12h @0000 ] Intermittent Dosing?: No Labs Labs Vital Signs Label Value Date Time Patient Temperature 98.3 degrees F 01/25/19 1354 Temperature Source Temporal 01/25/19 1354 Patient Temperature 101.4 degrees F 01/25/19 1520 Temperature Source Temporal 01/25/19 1520 Blood Pressure Assessment 88/52 (64) 01/25/19 1354 Blood Pressure Assessment 88/56 (67) 01/25/19 0540 Item Value Date Time White Blood Count 31.1 10^3/uL *H 01/25/19 0833 White Blood Count 35.3 10^3/uL *H 01/25/19 0645 White Blood Count 10.7 10^3/uL H 01/23/19 0627 White Blood Count 8.1 10^3/uL 01/20/19 0546 Creatinine 0.34 MG/DL L 01/23/19 0627 Creatinine 0.66 MG/DL # 01/25/19 0645 Glomerular Filtration Rate > 60.0 01/25/19 0645 Glomerular Filtration Rate > 60.0 01/23/19 0627 Creatinine 0.25 MG/DL L 01/20/19 0546 Glomerular Filtration Rate > 60.0 01/20/19 0546 Micro Microbiology 01/25/19 Urine Culture, Received Pending 01/25/19 Blood Culture, Received Pending 01/25/19 Blood Culture, Received Pending 01/24/19 Stool Occult Blood (GRACIELA) - Final, Complete Creatinine Clearance Date:01/25/19. Creatinine Clearance: [ 70 mL/min ]. Assessment and Plan Maintaining Current Dose?: Yes Reason for dose change: No Dose Change Pharmacist Note Pharmacist Note Date: 01/25/19. Pharmacist note: Ms. Ziegler was initiated on vancomycin for a grossly elevated white blood cell count from this morning's lab draw. She was started on empiric treatment with Zosyn 3.375 grams Q6H @1100. She has no history of vancomycin use at [facility]. She was initiated on a 1 gm loading dose of vancomycin with a subsequent maintenance dose of 500mg every 12 hours starting tomorrow @ 0000. A trough was scheduled for 1100 tomorrow, prior to the third dose, with a goal of 15-20mcg/dL. We will continue to monitor and make adjustments as necessary. [facility] Jan 25, 2019 15:48
[2019-01-25] MEDS: RIVAROXABAN 10 MG TAB (XARELTO) PO SCH (17:27)
[2019-01-25] MEDS ORDERED: NS 500 ML IV ONE (21:15)
[2019-01-25] MEDS ORDERED: NS 1,000 ML IV ONE (23:00)
[2019-01-26] VITALS: BP 88/60
[2019-01-26] MEDS: VANCOMYCIN HCL 500 MG in D5W MINI-BAG PLUS 100 ML IV SCH ×2 (00:02→12:22)
[2019-01-26] MEDS: oxyCODONE 5MG TAB PO PRN ×5 (00:02→22:56)
[2019-01-26] MEDS: PIPERACILLIN/TAZOBACTAM SOD 3.375 GM in D5W MINI-BAG PLUS 50 ML IV SCH ×4 (05:15→22:56)
[2019-01-26 06:00] VITALS: BP 81/53
[2019-01-26 06:32] VITALS: BP 86/50
[2019-01-26 07:17] LABS: HEMATOCRIT 28.2 % (36.0-47.0); HEMOGLOBIN 9.3 g/dl (12.0-15.5); MEAN CORPUSCULAR HEMOGLOBIN 30.9 pg (27.0-33.0); MEAN CORPUSCULAR VOLUME 93.7 fl (80.0-96.0); PLATELET COUNT, AUTOMATED 307 10^3/uL (150-450); RED BLOOD COUNT 3.01 10^6/uL (4.00-5.40); WHITE BLOOD COUNT 23.4 10^3/uL (4.0-10.0)
[2019-01-26 07:40] LABS: BLOOD UREA NITROGEN 10 MG/DL (7-18); CALCIUM LEVEL 8.5 MG/DL (8.8-10.2); CARBON DIOXIDE LEVEL 25 MEQ/L (21-32); CHLORIDE LEVEL 102 MEQ/L (98-107); CREATININE FOR GFR 0.54 MG/DL (0.55-1.30); GLOMERULAR FILTRATION RATE > 60.0 (>45); GLUCOSE, FASTING 92 MG/DL (70-100); POTASSIUM SERUM 3.4 MEQ/L (3.5-5.1); SODIUM LEVEL 134 MEQ/L (136-145)
[2019-01-26 07:41] LABS: LYMPHOCYTES 4 % (16-44); NEUTROPHILS 96 % (28-66)
[2019-01-26 07:42] LABS: PLATELET ESTIMATE NORMAL (NORMAL)
[2019-01-26] MEDS: NICOTINE 21MG/24HR 1 EA TRANSDERMAL TD SCH (07:46)
[2019-01-26] MEDS: CETIRIZINE (ZyrTEC) 10 MG TAB PO SCH (07:46)
[2019-01-26] MEDS: PANTOPRAZOLE 40MG TAB (PROTONIX) PO SCH (07:46)
[2019-01-26] MEDS: MONTELUKAST 10 MG TAB PO SCH (07:46)
[2019-01-26] MEDS: THIAMINE 100 MG TAB PO SCH (07:47)
[2019-01-26] MEDS: BENZONATATE 100 MG CAP PO SCH ×3 (07:47→21:17)
[2019-01-26] MEDS: FOLIC ACID 1 MG TAB PO SCH (07:47)
[2019-01-26] MEDS: MULTIVITAMINS/MINERALS THERAP 1 TAB PO SCH (07:47)
[2019-01-26] MEDS: ACETAMINOPHEN TAB 650MG DOSE (2X325MG) PO SCH ×3 (07:47→21:17)
[2019-01-26] MEDS: SENOKOT S TAB PO SCH ×2 (07:47→21:16)
[2019-01-26] MEDS: FLUTICASONE PROP 0.05% NASAL SPRAY 16 GM (FLONASE) NARES SCH ×2 (07:48→21:17)
[2019-01-26] MEDS: IPRATROPIUM 0.5MG/ALBUTEROL 2.5MG INH SOL UD 3ML (DUONEB)(J7620) NEB SCH ×4 (08:00→20:00)
[2019-01-26] MEDS: SYMBICORT 80/4.5MCG INHALER 6GM INH SCH ×2 (09:00→20:55)
--- NOTE | 2019-01-26 10:07 | IPNPDOC ---
PM&R Progress Note DATE OF SERVICE: Jan 26, 2019 Clinical Trials Specialist Progress Note Subjective: Patient reporting she feels a little weak this morning, but denies dizziness even with lower BPs. She continues to deny dysuria. She understands her dischar ge will be postponed given she has an infection. REVIEW OF SYSTEMS: The following is a completed review of systems and has been reviewed. Review of systems otherwise unremarkable. PAIN: Patient self reports +right hip pain EYES: No recent vision changes EARS, NOSE, & THROAT: No throat pain, or dysphagia, or rhinorrhea CARDIOVASCULAR: Denies chest pain or palpitations PULMONARY: Denies shortness of breath, +cough (improving) GASTROINTESTINAL: Denies constipation/diarrhea GENITOURINARY: denies dysuria MUSCULOSKELETAL: s/p right hip ORIF NEUROLOGICAL:denies tremor or seizures HEMATOLOGICAL: denies easy bruising SKIN: right hip incision PSYCHIATRIC: Unremarkable All other review of systems found to be negative. PHYSICAL EXAMINATION: VITAL SIGNS: Please see below. GENERAL: Pleasant and cooperative. No acute distress. thin HEENT: PERRL. Extraocular movements intact. Clear conjunctiva CARDIOVASCULAR: Regular rate and rhythm. No murmurs, rubs, or gallops LUNGS: +scattered wheeze, productive cough ABDOMEN: Soft, nontender, nondistended. Positive bowel sounds. Normal active bowel sounds NEUROLOGICAL: Alert and oriented times three. Cranial nerves II through XII grossly intact. Sensation grossly intact EXTREMITIES: 5-\5 strength bilateral upper extremities. 5-\5 strength right ankle DF, EHL, and PF (limited due to recent surgery) 5-/5 strength in left lower extremity. (-) Kingston's bilat (+) kyphosis SKIN: right hip incision c/d/i, +scattered excoriations ASSESSMENT:63-year-old F with past medical history of COPD who presents status post fall with right hip fracture s/p ORIF PLAN: 1. Rehab- PT advance gait training, strengthen/stretch/maintain ROM bilat LE OT- strengthen/stretch/maintain ROM bilat teach energy conservation 2. CArdiac: no known cardiac hx 3. Resp: hx COPD with recent exacerbation, c/u breathing treatments, goal 02 88- 92% -smoker, c/u nicotine patch 4. Heme: macrocytic anemia in setting of chronic ETOH abuse, c/u folic acid and thiamine -transfuse if Hgb <8 5. GI ppx: protonix 6. DVT ppx: Xarelto and TEDs 7. Pain: tylneol, oxycodone TID standing 8. ortho: s/p right hip fracture with ORIF-ortho consulted, will f/u outpatient for staple removal 9. Hyponatremia: will likely resolved with NS IVF which she is receiving 10. : patient asymptomatic, however +Le and nitrites with GNR in blood culture most likely urosepsis, fever and leukocytosis over the weekend started on Zosyn and Vanco, patient septic, but clinically improving with antibiotics and fluids -f/u Ucx and blood cx final results 9. Dispo: 01-24-19 to home, progressing quickly towards goals Allergies Coded Allergies: ENVIROMENTAL (Verified Allergy, Unknown, 01/11/15) Sulfa (Sulfonamide Antibiotics) (Verified Allergy, Unknown, 01/13/19) Vital Signs Vital Signs Date Time Temp Pulse Resp B/P (MAP) Pulse Ox O2 Delivery O2 Flow Rate FiO2 01/26/19 08:28 19 01/26/19 06:32 86/50 (62) 01/26/19 06:00 97.5 92 97 Room Air 01/24/19 14:00 2.0 Laboratory Data CBC/BMP Laboratory Tests 01/26/19 06:49 01/26/19 06:50 Labs 24H Laboratory Tests 2 01/25/19 14:13: Urine Color YELLOW, Urine Appearance CLOUDYH, Urine pH 5.0, Urine Specific [place] 1.008, Urine Protein 1+H, Urine Glucose (UA) NEGATIVE, Urine Ketones NEGATIVE, Urine Blood 2+H, Urine Nitrite POSITIVEH, Urine Bilirubin NEGATIVE, Urine Urobilinogen 0.2, Urine Leukocyte Esterase 3+H, Urine WBC (Auto) TNTCH, Urine RBC (Auto) 9H, Urine Hyaline Casts (Auto) 0, Urine Bacteria (Auto) 2+H, Urine Squamous Epithelial Cells 1, Urine Sperm (Auto) 01/26/19 06:49: Anion Gap 7L, Glomerular Filtration Rate > 60.0, Calcium Level 8.5L 01/26/19 06:50: Immature Granulocyte % (Auto) , Nucleated Red Blood Cells % (auto) 0.0, Neutrophils 96H, Lymphocytes (Manual) 4L, Red Blood Cell Morphology NORMAL, Platelet Estimate NORMAL Microbiology Microbiology 01/25/19 Urine Culture, Received Pending 01/25/19 Blood Culture - Preliminary, Resulted 01/25/19 Blood Culture - Preliminary, Resulted 01/24/19 Stool Occult Blood (GRACIELA) - Final, Complete Current Medications Current Medications Current Medications Medications (Trade) Dose Ordered Sig/Genny Route PRN Reason Start Time Stop Time Status Last Admin Dose Admin Acetaminophen (Tylenol Tab) 650 mg TID PO 01/21/19 21:00 01/21/19 21:25 DC Acetaminophen (Tylenol Tab) 650 mg TID PO 01/21/19 21:00 01/26/19 07:47 Acetaminophen (Tylenol Tab) 650 mg TID PO 01/21/19 21:25 01/21/19 21:26 DC Acetaminophen (Tylenol Tab) 1,000 mg TID PO 01/19/19 21:00 01/21/19 16:31 DC 01/21/19 16:24 Albuterol Sulfate (Proventil Neb) 2.5 mg Q2HP PRN NEB SOB/WHEEZING 01/19/19 16:30 Albuterol/ Ipratropium (Duoneb (Ipr 0.5mg/Alb 2.5mg)) 3 ml RQID NEB 01/19/19 20:00 01/25/19 15:46 Benzonatate (Tessalon Perles) 100 mg TID PO 01/19/19 21:00 01/26/19 07:47 Budesonide/ Formoterol Fumarate (Symbicort 80/ 4.5mcg) 2 puff BID INH 01/19/19 21:00 01/25/19 19:31 Cetirizine HCl (ZyrTEC) 10 mg DAILY PO 01/20/19 09:00 01/26/19 07:46 Fluticasone Propionate (Flonase 0.05% Nasal [place]) 1 spray BID NARES 01/19/19 21:00 01/26/19 07:48 Folic Acid (Folic Acid) 1 mg DAILY PO 01/20/19 09:00 01/26/19 07:47 Home Med (Med Rec Complete!) ASDIRECTED XX 01/19/19 15:45 01/19/19 15:34 DC Magnesium Hydroxide (Milk Of Magnesia) 30 ml DAILYPRN PRN PO CONSTIPATION 01/19/19 16:30 Miscellaneous (Unresolved Clarification Entry) SEE LABEL COMMENTS DAILY XX 01/26/19 09:00 Montelukast Sodium (Singulair) 10 mg DAILY PO 01/20/19 09:00 01/26/19 07:46 Multivitamins (Theragram-M) 1 tab DAILY PO 01/20/19 09:00 01/26/19 07:47 Nicotine (Nicoderm Cq 21mg) 1 patch DAILY TD 01/20/19 09:00 01/26/19 07:46 Ondansetron HCl (Zofran) 4 mg Q6HP PRN PO NAUSEA 01/19/19 16:30 Oxycodone HCl (Roxicodone, Oxyir) 5 mg 0700,1200,1700 PRN PO PAIN 01/21/19 16:30 01/26/19 07:58 Oxycodone HCl (Roxicodone, Oxyir) 5 mg Q4HP PRN PO PAIN 01/19/19 16:30 01/21/19 16:31 DC 01/21/19 14:34 Oxycodone HCl (Roxicodone, Oxyir) 5 mg QHSP PRN PO PAIN 01/21/19 16:30 01/26/19 00:02 Oxycodone HCl (Roxicodone, Oxyir) 10 mg Q4HP PRN PO SEVERE PAIN (PS 8-10) 01/19/19 16:30 01/21/19 16:31 DC 01/19/19 23:19 Pantoprazole Sodium (Protonix) 40 mg DAILY PO 01/20/19 09:00 01/26/19 07:46 Piperacillin Sod/ Tazobactam Sod 3.375 gm/Dextrose 50 ml @ 50 mls/hr Q6H IV 01/25/19 11:00 01/26/19 05:15 Rivaroxaban (Xarelto) 10 mg DAILY@18 PO 01/19/19 18:00 01/25/19 17:27 Senna/Docusate Sodium (Senokot S) 1 tab BID PO 01/19/19 21:00 01/26/19 07:47 Thiamine HCl (Thiamine HCl) 100 mg DAILY PO 01/20/19 09:00 01/26/19 07:47 Vancomycin HCl 500 mg/Dextrose 110 ml @ 110 mls/hr Q12H IV 01/26/19 00:00 01/26/19 00:02 JENNI LANGE MD Jan 26, 2019 10:07
[2019-01-26 14:00] VITALS: BP_SYST 101; BP_SYST 164; BP_DIAS 62; BP_DIAS 78
[2019-01-26] MEDS ORDERED: POTASSIUM CHLORIDE 10 MEQ SR TABLET PO ONE (17:15)
[2019-01-26] MEDS: RIVAROXABAN 10 MG TAB (XARELTO) PO SCH (17:37)
[2019-01-26 20:00] VITALS: BP 126/58
[2019-01-27] MEDS: PIPERACILLIN/TAZOBACTAM SOD 3.375 GM in D5W MINI-BAG PLUS 50 ML IV SCH (04:57)
[2019-01-27 06:00] VITALS: BP 110/60
[2019-01-27] MEDS ORDERED: XARE10TA PO (06:33)
[2019-01-27] MEDS: oxyCODONE 5MG TAB PO PRN ×4 (06:49→23:06)
[2019-01-27 07:26] LABS: HEMOGLOBIN 8.6 g/dl (12.0-15.5); MEAN CORPUSCULAR HEMOGLOBIN 31.3 pg (27.0-33.0); MEAN CORPUSCULAR HGB CONC 34.4 g/dl (32.0-36.5); MEAN CORPUSCULAR VOLUME 90.9 fl (80.0-96.0); PLATELET COUNT, AUTOMATED 259 10^3/uL (150-450); RED BLOOD COUNT 2.75 10^6/uL (4.00-5.40); WHITE BLOOD COUNT 11.3 10^3/uL (4.0-10.0)
[2019-01-27] MEDS: SYMBICORT 80/4.5MCG INHALER 6GM INH SCH ×2 (07:40→20:39)
[2019-01-27 07:47] LABS: BLOOD UREA NITROGEN 6 MG/DL (7-18); CALCIUM LEVEL 8.2 MG/DL (8.8-10.2); CARBON DIOXIDE LEVEL 24 MEQ/L (21-32); CHLORIDE LEVEL 102 MEQ/L (98-107); CREATININE FOR GFR 0.49 MG/DL (0.55-1.30); GLOMERULAR FILTRATION RATE > 60.0 (>45); GLUCOSE, FASTING 109 MG/DL (70-100); POTASSIUM SERUM 3.5 MEQ/L (3.5-5.1); SODIUM LEVEL 133 MEQ/L (136-145)
[2019-01-27 07:49] LABS: BASOPHILS 1 % (0-1); EOSINOPHILS 1 % (0-3); LYMPHOCYTES 2 % (16-44); MONOCYTES 1 % (0-5); NEUTROPHILS 95 % (28-66); PLATELET ESTIMATE NORMAL (NORMAL)
[2019-01-27] MEDS: IPRATROPIUM 0.5MG/ALBUTEROL 2.5MG INH SOL UD 3ML (DUONEB)(J7620) NEB SCH ×4 (07:53→20:00)
[2019-01-27] MEDS: BENZONATATE 100 MG CAP PO SCH ×3 (09:05→20:28)
[2019-01-27] MEDS: FOLIC ACID 1 MG TAB PO SCH (09:05)
[2019-01-27] MEDS: MULTIVITAMINS/MINERALS THERAP 1 TAB PO SCH (09:05)
[2019-01-27] MEDS: CETIRIZINE (ZyrTEC) 10 MG TAB PO SCH (09:05)
[2019-01-27] MEDS: THIAMINE 100 MG TAB PO SCH (09:05)
[2019-01-27] MEDS: SENOKOT S TAB PO SCH ×2 (09:05→20:28)
[2019-01-27] MEDS: MONTELUKAST 10 MG TAB PO SCH (09:05)
[2019-01-27] MEDS: FLUTICASONE PROP 0.05% NASAL SPRAY 16 GM (FLONASE) NARES SCH ×2 (09:06→20:28)
[2019-01-27] MEDS: NICOTINE 21MG/24HR 1 EA TRANSDERMAL TD SCH (09:06)
[2019-01-27] MEDS: PANTOPRAZOLE 40MG TAB (PROTONIX) PO SCH (09:06)
[2019-01-27] MEDS: ACETAMINOPHEN TAB 650MG DOSE (2X325MG) PO SCH ×3 (09:06→20:28)
[2019-01-27] MEDS: LevoFLOXacin 500 MG TABLET PO SCH (11:37)
--- NOTE | 2019-01-27 12:28 | IPNPDOC ---
PM&R Progress Note DATE OF SERVICE: Jan 27, 2019 Underwater Roboticist Progress Note Subjective: Patient reporting she feels better today and is able to participate in therapy. REVIEW OF SYSTEMS: The following is a completed review of systems and has been reviewed. Review of systems otherwise unremarkable. PAIN: Patient self reports +right hip pain EYES: No recent vision changes EARS, NOSE, & THROAT: No throat pain, or dysphagia, or rhinorrhea CARDIOVASCULAR: Denies chest pain or palpitations PULMONARY: Denies shortness of breath, +cough (improving) GASTROINTESTINAL: Denies constipation/diarrhea GENITOURINARY: denies dysuria MUSCULOSKELETAL: s/p right hip ORIF NEUROLOGICAL:denies tremor or seizures HEMATOLOGICAL: denies easy bruising SKIN: right hip incision PSYCHIATRIC: Unremarkable All other review of systems found to be negative. PHYSICAL EXAMINATION: VITAL SIGNS: Please see below. GENERAL: Pleasant and cooperative. No acute distress. thin HEENT: PERRL. Extraocular movements intact. Clear conjunctiva CARDIOVASCULAR: Regular rate and rhythm. No murmurs, rubs, or gallops LUNGS: +scattered wheeze, productive cough ABDOMEN: Soft, nontender, nondistended. Positive bowel sounds. Normal active bowel sounds NEUROLOGICAL: Alert and oriented times three. Cranial nerves II through XII grossly intact. Sensation grossly intact EXTREMITIES: 5-\5 strength bilateral upper extremities. 5-\5 strength right ankle DF, EHL, and PF (limited due to recent surgery) 5-/5 strength in left lower extremity. (-) Kingston's bilat (+) kyphosis SKIN: right hip incision c/d/i, +scattered excoriations ASSESSMENT:63-year-old F with past medical history of COPD who presents status post fall with right hip fracture s/p ORIF PLAN: 1. Rehab- PT advance gait training, strengthen/stretch/maintain ROM bilat LE- ambulating with RW OT- strengthen/stretch/maintain ROM bilat teach energy conservation 2. CArdiac: no known cardiac hx 3. Resp: hx COPD with recent exacerbation, c/u breathing treatments, goal 02 88- 92% -smoker, c/u nicotine patch 4. Heme: macrocytic anemia in setting of chronic ETOH abuse, c/u folic acid and thiamine -transfuse if Hgb <8 5. GI ppx: protonix 6. DVT ppx: Xarelto and TEDs 7. Pain: tylneol, oxycodone TID standing 8. ortho: s/p right hip fracture with ORIF-ortho consulted, will f/u outpatient for staple removal 9. Hyponatremia: c/u fluid restriction, s/p fluids 10. : s/p ZOsyn for +Ecoli Ucx and Blood cx, patient afebrile, leukocytosis trending down -Dr. Angelica ramos appreciated, 1st dose Levaquin today 9. Dispo: TBD due to recent bacteremia Allergies Coded Allergies: ENVIROMENTAL (Verified Allergy, Unknown, 01/11/15) Sulfa (Sulfonamide Antibiotics) (Verified Allergy, Unknown, 01/13/19) Vital Signs Vital Signs Date Time Temp Pulse Resp B/P (MAP) Pulse Ox O2 Delivery O2 Flow Rate FiO2 01/27/19 07:19 18 01/27/19 06:49 Room Air 01/27/19 06:00 97.2 70 110/60 (77) 97 01/24/19 14:00 2.0 Laboratory Data CBC/BMP Laboratory Tests 01/27/19 07:11 01/27/19 07:12 Labs 24H Laboratory Tests 2 01/27/19 07:11: Nucleated Red Blood Cells % (auto) 0.0, Neutrophils 95H, Lymphocytes (Manual) 2L, Monocytes (Manual) 1, Eosinophils (Manual) 1, Basophils (Manual) 1, Red Blood Cell Morphology NORMAL, Platelet Estimate NORMAL 01/27/19 07:12: Anion Gap 7L, Glomerular Filtration Rate > 60.0, Calcium Level 8.2L Microbiology Microbiology 01/25/19 Urine Culture - Final, Complete Escherichia Coli 01/25/19 Blood Culture - Preliminary, Resulted 01/25/19 Blood Culture - Final, Complete Escherichia Coli 01/24/19 Stool Occult Blood (GRACIELA) - Final, Complete Current Medications Current Medications Current Medications Medications (Trade) Dose Ordered Sig/Genny Route PRN Reason Start Time Stop Time Status Last Admin Dose Admin Acetaminophen (Tylenol Tab) 650 mg TID PO 01/21/19 21:00 01/21/19 21:25 DC Acetaminophen (Tylenol Tab) 650 mg TID PO 01/21/19 21:00 01/27/19 09:06 Acetaminophen (Tylenol Tab) 650 mg TID PO 01/21/19 21:25 01/21/19 21:26 DC Acetaminophen (Tylenol Tab) 1,000 mg TID PO 01/19/19 21:00 01/21/19 16:31 DC 01/21/19 16:24 Albuterol Sulfate (Proventil Neb) 2.5 mg Q2HP PRN NEB SOB/WHEEZING 01/19/19 16:30 Albuterol/ Ipratropium (Duoneb (Ipr 0.5mg/Alb 2.5mg)) 3 ml RQID NEB 01/19/19 20:00 01/27/19 11:29 Benzonatate (Tessalon Perles) 100 mg TID PO 01/19/19 21:00 01/27/19 09:05 Budesonide/ Formoterol Fumarate (Symbicort 80/ 4.5mcg) 2 puff BID INH 01/19/19 21:00 01/27/19 07:40 Cetirizine HCl (ZyrTEC) 10 mg DAILY PO 01/20/19 09:00 01/27/19 09:05 Fluticasone Propionate (Flonase 0.05% Nasal [place]) 1 spray BID NARES 01/19/19 21:00 01/27/19 09:06 Folic Acid (Folic Acid) 1 mg DAILY PO 01/20/19 09:00 01/27/19 09:05 Home Med (Med Rec Complete!) ASDIRECTED XX 01/19/19 15:45 01/19/19 15:34 DC Levofloxacin (Levaquin) 500 mg DAILY@06 PO 01/27/19 06:00 01/27/19 11:37 Magnesium Hydroxide (Milk Of Magnesia) 30 ml DAILYPRN PRN PO CONSTIPATION 01/19/19 16:30 Miscellaneous (Unresolved Clarification Entry) SEE LABEL COMMENTS DAILY XX 01/26/19 09:00 01/26/19 12:09 DC Montelukast Sodium (Singulair) 10 mg DAILY PO 01/20/19 09:00 01/27/19 09:05 Multivitamins (Theragram-M) 1 tab DAILY PO 01/20/19 09:00 01/27/19 09:05 Nicotine (Nicoderm Cq 21mg) 1 patch DAILY TD 01/20/19 09:00 01/27/19 09:06 Ondansetron HCl (Zofran) 4 mg Q6HP PRN PO NAUSEA 01/19/19 16:30 Oxycodone HCl (Roxicodone, Oxyir) 5 mg 0700,1200,1700 PRN PO PAIN 01/21/19 16:30 01/27/19 06:49 Oxycodone HCl (Roxicodone, Oxyir) 5 mg Q4HP PRN PO PAIN 01/19/19 16:30 01/21/19 16:31 DC 01/21/19 14:34 Oxycodone HCl (Roxicodone, Oxyir) 5 mg QHSP PRN PO PAIN 01/21/19 16:30 01/26/19 22:56 Oxycodone HCl (Roxicodone, Oxyir) 10 mg Q4HP PRN PO SEVERE PAIN (PS 8-10) 01/19/19 16:30 01/21/19 16:31 DC 01/19/19 23:19 Pantoprazole Sodium (Protonix) 40 mg DAILY PO 01/20/19 09:00 01/27/19 09:06 Piperacillin Sod/ Tazobactam Sod 3.375 gm/Dextrose 50 ml @ 50 mls/hr Q6H IV 01/25/19 11:00 01/27/19 09:35 DC 01/27/19 04:57 Rivaroxaban (Xarelto) 10 mg DAILY@18 PO 01/19/19 18:00 01/26/19 17:37 Senna/Docusate Sodium (Senokot S) 1 tab BID PO 01/19/19 21:00 01/27/19 09:05 Thiamine HCl (Thiamine HCl) 100 mg DAILY PO 01/20/19 09:00 01/27/19 09:05 Vancomycin HCl 500 mg/Dextrose 110 ml @ 110 mls/hr Q12H IV 01/26/19 00:00 01/26/19 13:47 DC 01/26/19 12:22 JENNI LANGE MD Jan 27, 2019 12:27
--- NOTE | 2019-01-27 13:33 | REP ---
Urinary tract sonogram: History: E: Sepsis. Comparison: No comparison study. Findings: Scanning at the level of the urinary bladder shows no abnormality. Renal cortical echogenicity pattern is normal bilaterally and contours are smooth. There is no evidence of hydronephrosis, cyst, mass, or calculus in either kidney. The right kidney measures 12.6 x 5.7 x 4.6 cm. Left renal dimensions are 11.1 x 5.3 x 5.4 cm. Impression: Normal urinary tract sonography. Electronically Signed by Jori Omalley MD 01/27/2019 01:25 P
[2019-01-27 14:00] VITALS: BP 102/65
[2019-01-27] MEDS: RIVAROXABAN 10 MG TAB (XARELTO) PO SCH (17:00)
[2019-01-27 20:20] VITALS: BP 82/44
[2019-01-27 20:24] VITALS: BP 82/50
[2019-01-27 21:22] VITALS: BP 93/62
[2019-01-28] MEDS: LevoFLOXacin 500 MG TABLET PO SCH (05:27)
[2019-01-28 06:00] VITALS: BP 119/75
[2019-01-28] MEDS: oxyCODONE 5MG TAB PO PRN ×5 (07:01→20:53)
[2019-01-28] MEDS: SYMBICORT 80/4.5MCG INHALER 6GM INH SCH ×2 (07:15→19:31)
[2019-01-28 07:29] LABS: HEMOGLOBIN 9.4 g/dl (12.0-15.5); MEAN CORPUSCULAR HEMOGLOBIN 30.8 pg (27.0-33.0); MEAN CORPUSCULAR HGB CONC 33.6 g/dl (32.0-36.5); MEAN CORPUSCULAR VOLUME 91.8 fl (80.0-96.0); PLATELET COUNT, AUTOMATED 281 10^3/uL (150-450); RED BLOOD COUNT 3.05 10^6/uL (4.00-5.40)
[2019-01-28 07:55] LABS: MONOCYTES 1 % (0-5)
[2019-01-28 07:56] LABS: PLATELET ESTIMATE NORMAL (NORMAL)
[2019-01-28] MEDS: IPRATROPIUM 0.5MG/ALBUTEROL 2.5MG INH SOL UD 3ML (DUONEB)(J7620) NEB SCH ×4 (08:00→19:31)
[2019-01-28 08:19] LABS: BLOOD UREA NITROGEN 4 MG/DL (7-18); CALCIUM LEVEL 8.4 MG/DL (8.8-10.2); CARBON DIOXIDE LEVEL 21 MEQ/L (21-32); CHLORIDE LEVEL 104 MEQ/L (98-107); CREATININE FOR GFR 0.48 MG/DL (0.55-1.30); GLOMERULAR FILTRATION RATE > 60.0 (>45); GLUCOSE, FASTING 117 MG/DL (70-100); POTASSIUM SERUM 3.4 MEQ/L (3.5-5.1); SODIUM LEVEL 134 MEQ/L (136-145)
[2019-01-28 08:28] LABS: EOSINOPHILS 1 % (0-3); LYMPHOCYTES 11 % (16-44); NEUTROPHILS 87 % (28-66)
[2019-01-28] MEDS ORDERED: POTASSIUM CHLORIDE 10 MEQ SR TABLET PO ONE (09:00)
[2019-01-28] MEDS: NICOTINE 21MG/24HR 1 EA TRANSDERMAL TD SCH (09:15)
[2019-01-28] MEDS: MULTIVITAMINS/MINERALS THERAP 1 TAB PO SCH (09:16)
[2019-01-28] MEDS: BENZONATATE 100 MG CAP PO SCH ×3 (09:17→20:50)
[2019-01-28] MEDS: SENOKOT S TAB PO SCH ×2 (09:17→20:51)
[2019-01-28] MEDS: THIAMINE 100 MG TAB PO SCH (09:17)
[2019-01-28] MEDS: MONTELUKAST 10 MG TAB PO SCH (09:17)
[2019-01-28] MEDS: FOLIC ACID 1 MG TAB PO SCH (09:17)
[2019-01-28] MEDS: PANTOPRAZOLE 40MG TAB (PROTONIX) PO SCH (09:17)
[2019-01-28] MEDS: ACETAMINOPHEN TAB 650MG DOSE (2X325MG) PO SCH ×3 (09:17→20:51)
[2019-01-28] MEDS: FLUTICASONE PROP 0.05% NASAL SPRAY 16 GM (FLONASE) NARES SCH ×2 (09:17→21:15)
[2019-01-28] MEDS: CETIRIZINE (ZyrTEC) 10 MG TAB PO SCH (09:17)
--- NOTE | 2019-01-28 11:04 | IPNPDOC ---
PM&R Progress Note DATE OF SERVICE: Jan 28, 2019 Rn Intensive Care Unit Progress Note Subjective: Patient reporting she feels much better today and is ready to go home tomorrow. REVIEW OF SYSTEMS: The following is a completed review of systems and has been reviewed. Review of systems otherwise unremarkable. PAIN: Patient self reports +right hip pain EYES: No recent vision changes EARS, NOSE, & THROAT: No throat pain, or dysphagia, or rhinorrhea CARDIOVASCULAR: Denies chest pain or palpitations PULMONARY: Denies shortness of breath, +cough (improving) GASTROINTESTINAL: Denies constipation/diarrhea GENITOURINARY: denies dysuria MUSCULOSKELETAL: s/p right hip ORIF NEUROLOGICAL:denies tremor or seizures HEMATOLOGICAL: denies easy bruising SKIN: right hip incision PSYCHIATRIC: Unremarkable All other review of systems found to be negative. PHYSICAL EXAMINATION: VITAL SIGNS: Please see below. GENERAL: Pleasant and cooperative. No acute distress. thin HEENT: PERRL. Extraocular movements intact. Clear conjunctiva CARDIOVASCULAR: Regular rate and rhythm. No murmurs, rubs, or gallops LUNGS: +scattered wheeze, productive cough ABDOMEN: Soft, nontender, nondistended. Positive bowel sounds. Normal active bowel sounds NEUROLOGICAL: Alert and oriented times three. Cranial nerves II through XII grossly intact. Sensation grossly intact EXTREMITIES: 5-\5 strength bilateral upper extremities. 5-\5 strength right ankle DF, EHL, and PF (limited due to recent surgery) 5-/5 strength in left lower extremity. (-) Kingston's bilat (+) kyphosis SKIN: right hip incision c/d/i, +scattered excoriations ASSESSMENT:63-year-old F with past medical history of COPD who presents status post fall with right hip fracture s/p ORIF PLAN: 1. Rehab- PT advance gait training, strengthen/stretch/maintain ROM bilat LE- ambulating with RW OT- strengthen/stretch/maintain ROM bilat teach energy conservation 2. CArdiac: no known cardiac hx 3. Resp: hx COPD with recent exacerbation, c/u breathing treatments, goal 02 88- 92% -smoker, c/u nicotine patch 4. Heme: macrocytic anemia in setting of chronic ETOH abuse, c/u folic acid and thiamine -transfuse if Hgb <8 5. GI ppx: protonix 6. DVT ppx: Xarelto and TEDs 7. Pain: tylneol, oxycodone TID standing 8. ortho: s/p right hip fracture with ORIF-ortho consulted, will f/u outpatient for staple removal 9. Hyponatremia: c/u fluid restriction, s/p fluids 10. : s/p ZOsyn for +Ecoli Ucx and Blood cx, patient afebrile, leukocytosis trending down -Dr. Angelica ramos appreciated, c/u Levaquin today 9. Dispo: 01-29-19 to home, progressing well and leukocytosis resolved Allergies Coded Allergies: ENVIROMENTAL (Verified Allergy, Unknown, 01/11/15) Sulfa (Sulfonamide Antibiotics) (Verified Allergy, Unknown, 01/13/19) Vital Signs Vital Signs Date Time Temp Pulse Resp B/P (MAP) Pulse Ox O2 Delivery O2 Flow Rate FiO2 01/28/19 07:31 19 01/28/19 07:01 Room Air 01/28/19 06:00 96.8 61 119/75 (90) 94 01/24/19 14:00 2.0 Laboratory Data CBC/BMP Laboratory Tests 01/28/19 07:18 Labs 24H Laboratory Tests 2 01/28/19 07:18: Nucleated Red Blood Cells % (auto) 0.0, Neutrophils 87H, Lymphocytes (Manual) 11L, Monocytes (Manual) 1, Eosinophils (Manual) 1, Red Blood Cell Morphology NORMAL, Platelet Estimate NORMAL, Anion Gap 9, Glomerular Filtration Rate > 60.0, Calcium Level 8.4L Microbiology Microbiology 01/25/19 Urine Culture - Final, Complete Escherichia Coli 01/25/19 Blood Culture - Final, Complete Escherichia Coli 01/25/19 Blood Culture - Final, Complete Escherichia Coli 01/24/19 Stool Occult Blood (GRACIELA) - Final, Complete Current Medications Current Medications Current Medications Medications (Trade) Dose Ordered Sig/Genny Route PRN Reason Start Time Stop Time Status Last Admin Dose Admin Acetaminophen (Tylenol Tab) 650 mg TID PO 01/21/19 21:00 01/21/19 21:25 DC Acetaminophen (Tylenol Tab) 650 mg TID PO 01/21/19 21:00 01/28/19 09:17 Acetaminophen (Tylenol Tab) 650 mg TID PO 01/21/19 21:25 01/21/19 21:26 DC Acetaminophen (Tylenol Tab) 1,000 mg TID PO 01/19/19 21:00 01/21/19 16:31 DC 01/21/19 16:24 Albuterol Sulfate (Proventil Neb) 2.5 mg Q2HP PRN NEB SOB/WHEEZING 01/19/19 16:30 Albuterol/ Ipratropium (Duoneb (Ipr 0.5mg/Alb 2.5mg)) 3 ml RQID NEB 01/19/19 20:00 01/27/19 15:19 Benzonatate (Tessalon Perles) 100 mg TID PO 01/19/19 21:00 01/28/19 09:17 Budesonide/ Formoterol Fumarate (Symbicort 80/ 4.5mcg) 2 puff BID INH 01/19/19 21:00 01/28/19 07:15 Cetirizine HCl (ZyrTEC) 10 mg DAILY PO 01/20/19 09:00 01/28/19 09:17 Fluticasone Propionate (Flonase 0.05% Nasal [place]) 1 spray BID NARES 01/19/19 21:00 01/28/19 09:17 Folic Acid (Folic Acid) 1 mg DAILY PO 01/20/19 09:00 01/28/19 09:17 Home Med (Med Rec Complete!) ASDIRECTED XX 01/19/19 15:45 01/19/19 15:34 DC Levofloxacin (Levaquin) 500 mg DAILY@06 PO 01/27/19 06:00 01/28/19 05:27 Magnesium Hydroxide (Milk Of Magnesia) 30 ml DAILYPRN PRN PO CONSTIPATION 01/19/19 16:30 Miscellaneous (Unresolved Clarification Entry) SEE LABEL COMMENTS DAILY XX 01/26/19 09:00 01/26/19 12:09 DC Montelukast Sodium (Singulair) 10 mg DAILY PO 01/20/19 09:00 01/28/19 09:17 Multivitamins (Theragram-M) 1 tab DAILY PO 01/20/19 09:00 01/28/19 09:16 Nicotine (Nicoderm Cq 21mg) 1 patch DAILY TD 01/20/19 09:00 01/28/19 09:15 Ondansetron HCl (Zofran) 4 mg Q6HP PRN PO NAUSEA 01/19/19 16:30 Oxycodone HCl (Roxicodone, Oxyir) 5 mg 0700,1200,1700 PRN PO PAIN 01/21/19 16:30 01/28/19 07:01 Oxycodone HCl (Roxicodone, Oxyir) 5 mg Q4HP PRN PO PAIN 01/19/19 16:30 01/21/19 16:31 DC 01/21/19 14:34 Oxycodone HCl (Roxicodone, Oxyir) 5 mg QHSP PRN PO PAIN 01/21/19 16:30 01/27/19 23:06 Oxycodone HCl (Roxicodone, Oxyir) 10 mg Q4HP PRN PO SEVERE PAIN (PS 8-10) 01/19/19 16:30 01/21/19 16:31 DC 01/19/19 23:19 Pantoprazole Sodium (Protonix) 40 mg DAILY PO 01/20/19 09:00 01/28/19 09:17 Piperacillin Sod/ Tazobactam Sod 3.375 gm/Dextrose 50 ml @ 50 mls/hr Q6H IV 01/25/19 11:00 01/27/19 09:35 DC 01/27/19 04:57 Rivaroxaban (Xarelto) 10 mg DAILY@18 PO 01/19/19 18:00 01/27/19 17:00 Senna/Docusate Sodium (Senokot S) 1 tab BID PO 01/19/19 21:00 01/28/19 09:17 Thiamine HCl (Thiamine HCl) 100 mg DAILY PO 01/20/19 09:00 01/28/19 09:17 Vancomycin HCl 500 mg/Dextrose 110 ml @ 110 mls/hr Q12H IV 01/26/19 00:00 01/26/19 13:47 DC 01/26/19 12:22 JENNI LANGE MD Jan 28, 2019 11:04
[2019-01-28] MEDS ORDERED: LEVA1TAB2 PO (11:06)
--- NOTE | 2019-01-28 13:36 | CR ---
DATE OF CONSULTATION: 01/27/2019 I was asked to consult by Dr. Langford for evaluation of E. coli bacteremia and urinary tract infection. HISTORY OF PRESENT ILLNESS: Mrs. Ziegler is a pleasant 63-year-old female who was admitted to the hospital after she had a right hip fracture. The patient initially was diagnosed on 01/13 with a comminuted intertrochanteric fracture of the right hip. On 01/15 she underwent open reduction and internal fixation. She developed chronic obstructive pulmonary disease (COPD) exacerbation with wheezing and shortness of breath. The patient was doing well, transferred to rehab on 01/20. She developed a fever around 01/24 up to 103.2. She did not have any dysuria, hematuria or flank pain, but blood cultures were obtained because of the fever and they were positive for E. Coli. Urine culture was also positive for E. Coli on 01/25. She was started on IV Zosyn with improvement in her symptoms. She has received so far eight doses and has defervesced. She is clinically doing well and was ready for discharge from a PT standpoint. PAST MEDICAL HISTORY: Significant for: Coronary artery disease. COPD. History of hepatitis C. Hypertension. Sciatica. Gastroesophageal reflux disease (GERD). Seasonal allergies. ALLERGIES: 1. SULFA. 2. Environmental allergies. MEDICATIONS: - Zosyn 3.375 grams IV q.6 h - Tylenol p.r.n. - oxycodone 5 mg p.r.n. q. 6 - pantoprazole 40 mg daily - nicotine patch daily - multivitamin 1 tablet daily - folic acid 1 mg daily - cetirizine 10 mg daily - montelukast 10 mg by mouth daily - thiamine 100 mg daily - Senokot 1 tablet p.o. b.i.d. - fluticasone propionate 1 spray inhaled b.i.d. - Symbicort 2 puffs inhaled b.i.d. - Tessalon Perles 100 mg p.o. t.i.d. - albuterol/Atrovent nebs LABORATORY DATA: White count on 01/23 was 10.7, on 01/25 was 35.3, today 11.3, hemoglobin 8.6, hematocrit 25, platelets 259, 95% neutrophils, 2% lymphocytes. Sodium 133, potassium 3.5, chloride 102, bicarb 24, BUN 6, creatinine 0.49, glucose 109, calcium 8.2. Vancomycin trough on 01/26 was 6.8. Urinalysis had many white cells too numerous to count and 9 red blood cells. Urine culture was positive for E. Coli. Of note, the patient stated that she had one episode of urinary retention requiring a straight cath. Blood culture was positive for E. coli in both sets, sensitive to ampicillin. Chest x-ray done on 01/24 shows marked hyperinflation consistent with COPD, otherwise no acute disease and renal ultrasound that I ordered shows normal urinary tract sonography. No evidence of hydronephrosis, mass or calculus in either kidney. PHYSICAL EXAMINATION: She is a frail elderly female, looks older than stated age in no acute distress. Heart normal S1, S2. No murmurs, rubs or gallops. Lungs decreased breath sounds bilaterally with poor air entry. No wheezes or rhonchi. Abdomen soft, nontender. No hepatosplenomegaly. Back no CVA or lumbosacral tenderness. She has mild kyphoscoliosis. Hip mild swelling on the right side. She has carmen from ORIF. The upper incision has mild yellowish discharge on the dressing. The lower incision does not have any drainage. Extremities no clubbing, cyanosis or edema. No calf tenderness. IMPRESSION: 63-year-old female status post hip fracture who underwent open reduction internal fixation, developed a fever of 103.2 on 01/24 due to urinary tract infection. The patient had one episodes of urinary retention that needed straight catheterizing, and I am not sure that happened before or after the infection happended. She is doing much better after 48 hours of IV Zosyn. Her white count has improved and she has defervesced. PLAN: Discontinue IV Zosyn, switch to p.o. Levaquin 500 mg p.o. daily for 7 days. A renal ultrasound has been ordered and reviewed. There is no evidence of renal abscess or any other pathology. From an infectious disease standpoint the patient could be discharged home tomorrow if clinically stable from physical therapy/occupational therapy (PT/OT) standpoint. She does not need an infectious disease followup. She can followup with her primary care provider.
[2019-01-28 14:00] VITALS: BP 96/61
[2019-01-28] MEDS: RIVAROXABAN 10 MG TAB (XARELTO) PO SCH (17:12)
[2019-01-28 20:00] VITALS: BP 94/58
[2019-01-29 06:00] VITALS: BP 115/69
[2019-01-29] MEDS: LevoFLOXacin 500 MG TABLET PO SCH (06:49)
[2019-01-29] MEDS: oxyCODONE 5MG TAB PO PRN (06:52)
[2019-01-29 07:34] LABS: BLOOD UREA NITROGEN 3 MG/DL (7-18); CALCIUM LEVEL 8.9 MG/DL (8.8-10.2); CARBON DIOXIDE LEVEL 28 MEQ/L (21-32); CHLORIDE LEVEL 103 MEQ/L (98-107); CREATININE FOR GFR 0.34 MG/DL (0.55-1.30); GLOMERULAR FILTRATION RATE > 60.0 (>45); GLUCOSE, FASTING 82 MG/DL (70-100); POTASSIUM SERUM 3.4 MEQ/L (3.5-5.1); SODIUM LEVEL 136 MEQ/L (136-145)
[2019-01-29] MEDS: IPRATROPIUM 0.5MG/ALBUTEROL 2.5MG INH SOL UD 3ML (DUONEB)(J7620) NEB SCH ×3 (08:00→16:01)
[2019-01-29] MEDS: SYMBICORT 80/4.5MCG INHALER 6GM INH SCH (08:09)
[2019-01-29] MEDS: NICOTINE 21MG/24HR 1 EA TRANSDERMAL TD SCH (09:00)
[2019-01-29] MEDS: THIAMINE 100 MG TAB PO SCH (10:34)
[2019-01-29] MEDS: MONTELUKAST 10 MG TAB PO SCH (10:34)
[2019-01-29] MEDS: ACETAMINOPHEN TAB 650MG DOSE (2X325MG) PO SCH (10:34)
[2019-01-29] MEDS: CETIRIZINE (ZyrTEC) 10 MG TAB PO SCH (10:34)
[2019-01-29] MEDS: PANTOPRAZOLE 40MG TAB (PROTONIX) PO SCH (10:34)
[2019-01-29] MEDS: MULTIVITAMINS/MINERALS THERAP 1 TAB PO SCH (10:34)
[2019-01-29] MEDS: SENOKOT S TAB PO SCH (10:34)
[2019-01-29] MEDS: BENZONATATE 100 MG CAP PO SCH (10:35)
[2019-01-29] MEDS: FOLIC ACID 1 MG TAB PO SCH (10:35)
[2019-01-29] MEDS: FLUTICASONE PROP 0.05% NASAL SPRAY 16 GM (FLONASE) NARES SCH (10:39)
--- NOTE | 2019-01-30 18:56 | PMRDS ---
DATE OF ADMISSION: 01/19/2019 DATE OF DISCHARGE: 01/29/2019 CHIEF COMPLAINT/DISCHARGE DIAGNOSIS: Right hip fracture. HISTORY OF PRESENT ILLNESS: This is a 63-year-old female with a past medical history of chronic obstructive pulmonary disease (COPD), coronary artery disease (CAD),, history of hepatitis C, hypertension, sciatica with worsening pain and fell while walking with her crutch, where she presented to [facility] Emergency Department (ED) on 01/13/2019 with back pain and difficulty walking. Hip x-ray showed "comminuted intertrochanteric fracture of right hip. Age-related osteopenia and degenerative changes noted. Evidence for peripheral vascular disease." She was evaluated by orthopedics, who performed an open reduction, internal fixation (ORIF) on 01/15/2019, made weightbearing as tolerated, and started on deep vein thrombosis (DVT)prophylaxis. She developed a COPD exacerbation and was started on breathing treatments. She was also placed on Clinical [place] Withdrawal Assessment (CIWA) protocol for history of alcohol abuse. She was evaluated and found to be below her prior level of function for mobility and activities of daily living (ADLs), and deemed appropriate for discharge to acute rehabilitation unit (ARU). PAST MEDICAL HISTORY: As per history of present illness (HPI). HOSPITAL COURSE: The patient was admitted and enrolled in a comprehensive physical therapy (PT)/occupational therapy (OT) program. She received 24-hour nursing supervision, and weekly team meetings were held to discuss her progress. The patient was continued on a nicotine patch and breathing treatments for history of COPD and smoking. She was also maintained on folic acid and thiamine for history of macrocytic anemia. The patient's pain was well controlled with oxycodone and Tylenol, and patient unfortunately developed fever with a spike in her leukocytosis on 01/25/2019 with blood cultures positive for Escherichia (E) coli and urine positive for E. coli. She was started on intravenous (IV) antibiotics and transitioned to oral with resolution of her leukocytosis. The patient's vital signs were stable throughout hospital course, and she was deemed medically and functionally stable to return home on 01/29/2019. DISCHARGE MEDICATIONS: As per instructions. FUNCTIONAL HISTORY ON DISCHARGE: The patient was modified independent for all functional transfers. Able to ambulate at a modified-assist level and negotiate nine stairs in occupational therapy. She was also modified independent for toileting, bed mobility, and dressing. Thank you for this referral.
== END 2019-01-29 16:30 | disposition home or self-care (01) | DRG 862 ==
LOC: M PM&R 14:55
PROVIDERS: ADMIT Physical Medicine & Rehabilitation; ATTEND Physical Medicine & Rehabilitation
DX: S72.141D Displaced intertrochanteric fracture of right femur, subsequent encounter for closed fracture with routine healing (principal); A41.51 Sepsis due to Escherichia coli [E. coli]; E87.1 Hypo-osmolality and hyponatremia; J44.9 Chronic obstructive pulmonary disease, unspecified; I25.10 Atherosclerotic heart disease of native coronary artery without angina pectoris; I10 Essential (primary) hypertension; M85.80 Other specified disorders of bone density and structure, unspecified site; F17.200 Nicotine dependence, unspecified, uncomplicated; F10.10 Alcohol abuse, uncomplicated; D53.9 Nutritional anemia, unspecified; Z79.01 Long term (current) use of anticoagulants; Z79.899 Other long term (current) drug therapy; Z88.2 Allergy status to sulfonamides; J30.9 Allergic rhinitis, unspecified; B18.2 Chronic viral hepatitis C; K21.9 Gastro-esophageal reflux disease without esophagitis; N39.0 Urinary tract infection, site not specified; W18.30XD Fall on same level, unspecified, subsequent encounter; Y92.009 Unspecified place in unspecified non-institutional (private) residence as the place of occurrence of the external cause

== ENCOUNTER 2019-04-09 12:50 | Outpatient (RCR) | payer OTHER ==
[~2019-04-09 12:50] MED LIST changes: +FOLI1TAB11 PO; +LEVA1TAB2 PO; -MONT10TA2 PO; +MONT10TA4 PO; +MORP1TAB19 PO; +SENN-23 PO; +THIA100TA PO; +VITMTA PO
== END 2019-04-11 ==
LOC: M PT 12:50
PROVIDERS: ATTEND Orthopaedic Surgery Sports Medicine
DX: S72.101A Unspecified trochanteric fracture of right femur, initial encounter for closed fracture (principal)

== ENCOUNTER 2019-04-30 12:38 | Outpatient (RCR) | payer OTHER | END 2019-05-12 | LOC: M PT 12:38 | PROVIDERS: ATTEND Orthopaedic Surgery Sports Medicine | DX: S72.101A Unspecified trochanteric fracture of right femur, initial encounter for closed fracture (principal); W18.30XA Fall on same level, unspecified, initial encounter; Y92.9 Unspecified place or not applicable ==

== ENCOUNTER 2019-06-10 13:00 | Outpatient (RCR) | payer OTHER | END 2019-06-11 | LOC: M PT 13:00 | PROVIDERS: ATTEND Orthopaedic Surgery Sports Medicine | DX: S72.001D Fracture of unspecified part of neck of right femur, subsequent encounter for closed fracture with routine healing (principal); W18.30XD Fall on same level, unspecified, subsequent encounter; Y92.9 Unspecified place or not applicable ==

== ENCOUNTER 2019-07-09 12:57 | Outpatient (RCR) | payer OTHER | END 2019-07-12 | LOC: M PT 12:57 | PROVIDERS: ATTEND Orthopaedic Surgery Sports Medicine | DX: S72.001D Fracture of unspecified part of neck of right femur, subsequent encounter for closed fracture with routine healing (principal) ==

== ENCOUNTER → 2019-08-05 | Outpatient (REF) | payer OTHER, MEDICAID ==
[2019-08-05 15:50] LABS: ALT/SGPT 16 U/L (12-78); BILIRUBIN,TOTAL 0.4 MG/DL (0.2-1.0); BLOOD UREA NITROGEN 7 MG/DL (7-18); CALCIUM LEVEL 9.9 MG/DL (8.8-10.2); CARBON DIOXIDE LEVEL 28 MEQ/L (21-32); CHLORIDE LEVEL 99 MEQ/L (98-107); CHOLESTEROL LEVEL 211 MG/DL (<200); CHOLESTEROL RISK RATIO 1.803 (<5); CREATININE FOR GFR 0.59 MG/DL (0.55-1.30); GLOMERULAR FILTRATION RATE > 60.0 (>45); GLUCOSE, FASTING 107 MG/DL (70-100); HDL CHOLESTEROL 117 MG/DL (>40); LDL CHOLESTEROL 79 MG/DL (<100); NON-HDL-C 94 MG/DL; POTASSIUM SERUM 4.6 MEQ/L (3.5-5.1); SODIUM LEVEL 135 MEQ/L (136-145); TOTAL PROTEIN 7.3 GM/DL (6.4-8.2); TRIGLYCERIDES LEVEL 75 MG/DL (<150)
[2019-08-05 15:58] LABS: TOTAL 25(OH) VITAMIN D 145.6 NG/ML (30.0-100.0)
== END ==
LOC: M SFHCPLAZ 13:39
PROVIDERS: ATTEND Nurse Practitioner Adult Health
DX: E55.9 Vitamin D deficiency, unspecified (principal); E78.2 Mixed hyperlipidemia; Z86.39 Personal history of other endocrine, nutritional and metabolic disease
CPT/HCPCS: 36415; 80053; 80061; 82306; G0463

== ENCOUNTER → 2019-09-21 | Outpatient (CLI) | payer MEDICARE, MEDICAID ==
--- NOTE | 2019-11-04 10:56 | REP ---
CT CHEST WITHOUT IV CONTRAST HISTORY: Lung nodule. COMPARISON: Chest CT study 06/18/2017, 02/15/2017, and 07/24/2016. CT FINDINGS: There is fairly extensive vascular calcification. The lungs are hyperinflated as before with emphysematous changes mild in degree. There is linear pleural parenchymal fibrosis in the right middle lobe. There are scattered granulomatous calcifications. No suspicious pulmonary nodule is appreciated. There is no evidence of pleural or pericardial effusion. No hilar or mediastinal mass or adenopathy is observed. IMPRESSION: Prominent vascular calcification including coronary artery distribution calcification. Evidence of chronic obstructive pulmonary disease (COPD). Old granulomatous calcification scattered bilaterally in the lung horton. Areas of linear fibrosis again seen. Otherwise, no active disease. MTDD
== END ==
LOC: M RAD 08:00
PROVIDERS: ATTEND Nurse Practitioner Adult Health
DX: R91.1 Solitary pulmonary nodule (principal); J44.9 Chronic obstructive pulmonary disease, unspecified

== ENCOUNTER → 2021-05-16 | Outpatient (CLI) | payer MEDICARE, OTHER ==
[~2021-05-16] MED LIST changes: -LEVO500T3 PO; +LEVO500T4 PO; +LISI10TA22 PO; -LISI10TA4 PO; -MONT10TA4 PO; +MONT10TA97 PO; +OMEP40CA4 PO; -OMEP40CA97 PO
[2021-05-16 15:10] LABS: HEMOGLOBIN 14.9 g/dl (12.0-15.5); MEAN CORPUSCULAR HEMOGLOBIN 32.5 pg (27.0-33.0); MEAN CORPUSCULAR HGB CONC 34.7 g/dl (32.0-36.5); MEAN CORPUSCULAR VOLUME 93.9 fl (80.0-96.0); PLATELET COUNT, AUTOMATED 308 10^3/uL (150-450); RED BLOOD COUNT 4.58 10^6/uL (4.00-5.40); WHITE BLOOD COUNT 7.3 10^3/uL (4.0-10.0)
[2021-05-16 15:45] LABS: ALBUMIN 3.9 GM/DL (3.2-5.2); ALT/SGPT 25 U/L (12-78); BILIRUBIN,TOTAL 0.3 MG/DL (0.2-1.0); BLOOD UREA NITROGEN 8 MG/DL (7-18); CALCIUM LEVEL 9.2 MG/DL (8.8-10.2); CARBON DIOXIDE LEVEL 32 MEQ/L (21-32); CHLORIDE LEVEL 95 MEQ/L (98-107); CHOLESTEROL LEVEL 187 MG/DL (<200); CHOLESTEROL RISK RATIO 1.927 (<5); CREATININE FOR GFR 0.38 MG/DL (0.55-1.30); GLOMERULAR FILTRATION RATE > 60.0 (>45); GLUCOSE, FASTING 112 MG/DL (70-100); HDL CHOLESTEROL 97 MG/DL (>40); LDL CHOLESTEROL 65 MG/DL (<100); NON-HDL-C 90 MG/DL; POTASSIUM SERUM 4.5 MEQ/L (3.5-5.1); SODIUM LEVEL 130 MEQ/L (136-145); TOTAL 25(OH) VITAMIN D 126.4 NG/ML (30.0-100.0); TOTAL PROTEIN 6.8 GM/DL (6.4-8.2); TRIGLYCERIDES LEVEL 125 MG/DL (<150)
[2021-05-16 16:30] LABS: HEPATITIS C VIRUS ABY INDEX 3.8 INDEX (<0.8)
== END ==
LOC: M PLALAB 13:46
PROVIDERS: ATTEND Nurse Practitioner Adult Health
DX: E55.9 Vitamin D deficiency, unspecified (principal); E78.00 Pure hypercholesterolemia, unspecified

== ENCOUNTER 2021-06-16 16:49 | Inpatient (IN) | payer MEDICARE, OTHER ==
[~2021-06-16] VITALS: Ht 154.9 cm; Wt 35.0 kg
[2021-06-16 18:29] LABS: BASO % 0.3 % (0.0-1.0); EOS % 0.3 % (0.0-3.0); HEMATOCRIT 39.9 % (36.0-47.0); HEMOGLOBIN 13.9 g/dl (12.0-15.5); LYMPH # 0.8 10^3/uL (1.5-5.0); LYMPH % 10.9 % (24.0-44.0); MEAN CORPUSCULAR HGB CONC 34.8 g/dl (32.0-36.5); MEAN CORPUSCULAR VOLUME 91.9 fl (80.0-96.0); MONO # 0.4 10^3/uL (0.0-0.8); MONO % 4.9 % (2.0-8.0); NEUTROPHILS # 5.9 10^3/uL (1.5-8.5); PLATELET COUNT, AUTOMATED 192 10^3/uL (150-450); RED BLOOD COUNT 4.34 10^6/uL (4.00-5.40); WHITE BLOOD COUNT 7.2 10^3/uL (4.0-10.0)
[2021-06-16 18:53] LABS: ALBUMIN 3.7 GM/DL (3.2-5.2); ALT/SGPT 20 U/L (12-78); BILIRUBIN,DIRECT < 0.1 MG/DL (0.0-0.2); BILIRUBIN,TOTAL 0.2 MG/DL (0.2-1.0); BLOOD UREA NITROGEN 6 MG/DL (7-18); CALCIUM LEVEL 9.6 MG/DL (8.8-10.2); CARBON DIOXIDE LEVEL 29 MEQ/L (21-32); CHLORIDE LEVEL 91 MEQ/L (98-107); GLOMERULAR FILTRATION RATE > 60.0 (>45); GLUCOSE, FASTING 114 MG/DL (70-100); NT-PRO BNP 562 PG/ML (<125); POTASSIUM SERUM 3.9 MEQ/L (3.5-5.1); SODIUM LEVEL 127 MEQ/L (136-145); THYROXINE (T4) 7.1 UG/DL (4.5-12.0); TOTAL PROTEIN 7.4 GM/DL (6.4-8.2)
[2021-06-16] MEDS ORDERED: IPRATROPIUM 0.5MG/ALBUTEROL 2.5MG INH SOL UD 3ML (DUONEB) NEB ONE (20:25)
[2021-06-16] MEDS ORDERED: LISI10TA22 PO (20:51)
[2021-06-16] MEDS ORDERED: IBUP80TA PO (20:51)
[2021-06-16] MEDS ORDERED: DRIS50003 PO (20:51)
[2021-06-16] MEDS ORDERED: HOME MED LIST COMPLETE! XX SCH (20:55)
[2021-06-16] MEDS ORDERED: FLUTICASONE PROP 0.05% NASAL SPRAY 16 GM (FLONASE) NARES PRN (21:35)
[2021-06-16] MEDS ORDERED: OMEPRAZOLE 20MG CAP PO PRN (21:35)
[2021-06-16] MEDS: SYMBICORT 80/4.5MCG INHALER 6GM INH SCH (21:44)
[2021-06-16] MEDS: methylPREDNISolone 125MG 2ML VIAL IV SCH (22:30)
[2021-06-16] MEDS: CETIRIZINE (ZyrTEC) 10 MG TAB PO SCH (22:31)
[2021-06-16 22:58] VITALS: BP 134/87
[2021-06-17] MEDS ORDERED: UNRESOLVED CLARIFICATION ENTRY XX SCH (00:01)
[2021-06-17] MEDS: RAMELTEON 8 MG TAB (ROZEREM) PO PRN ×2 (00:59→22:17)
[2021-06-17] MEDS ORDERED: LIDOCAINE 5% (LIDODERM) PATCH TD ONE (01:00)
[2021-06-17] MEDS ORDERED: IBUPROFEN 400MG TAB PO ONE (01:00)
[2021-06-17] MEDS: IPRATROPIUM 0.5MG/ALBUTEROL 2.5MG INH SOL UD 3ML (DUONEB) NEB SCH ×4 (02:58→19:30)
[2021-06-17] MEDS: methylPREDNISolone 125MG 2ML VIAL IV SCH ×3 (05:32→22:17)
[2021-06-17 05:58] VITALS: BP 124/80
[2021-06-17 06:52] LABS: HEMATOCRIT 40.7 % (36.0-47.0); HEMOGLOBIN 14.3 g/dl (12.0-15.5); MEAN CORPUSCULAR HEMOGLOBIN 32.1 pg (27.0-33.0); MEAN CORPUSCULAR HGB CONC 35.1 g/dl (32.0-36.5); MEAN CORPUSCULAR VOLUME 91.5 fl (80.0-96.0); PLATELET COUNT, AUTOMATED 217 10^3/uL (150-450); RED BLOOD COUNT 4.45 10^6/uL (4.00-5.40); WHITE BLOOD COUNT 3.9 10^3/uL (4.0-10.0)
[2021-06-17 07:17] LABS: BLOOD UREA NITROGEN 8 MG/DL (7-18); CALCIUM LEVEL 9.1 MG/DL (8.8-10.2); CARBON DIOXIDE LEVEL 26 MEQ/L (21-32); CHLORIDE LEVEL 94 MEQ/L (98-107); CREATININE FOR GFR 0.21 MG/DL (0.55-1.30); GLOMERULAR FILTRATION RATE > 60.0 (>45); GLUCOSE, FASTING 144 MG/DL (70-100); MAGNESIUM LEVEL 1.8 MG/DL (1.8-2.4); POTASSIUM SERUM 4.4 MEQ/L (3.5-5.1); SODIUM LEVEL 129 MEQ/L (136-145)
[2021-06-17] MEDS: SYMBICORT 80/4.5MCG INHALER 6GM INH SCH ×2 (07:53→19:30)
[2021-06-17] MEDS: MONTELUKAST 10 MG TAB PO SCH (08:58)
[2021-06-17] MEDS: ENOXAPARIN 40MG/0.4ML SYRINGE (J1650 PER 10MG) SC SCH (08:58)
[2021-06-17] MEDS ORDERED: ALBUTEROL SULFATE 2.5 MG/0.5 ML INH NEB SOLN NEB PRN (09:00)
[2021-06-17] MEDS: NS 1,000 ML IV SCH ×2 (09:36→22:18)
[2021-06-17] MEDS ORDERED: **NOTE PATIENT COMMENT** MISC XX SCH (13:00)
[2021-06-17 14:00] VITALS: BP 92/60
[2021-06-17 18:14] VITALS: BP 98/64
[2021-06-17] MEDS: CETIRIZINE (ZyrTEC) 10 MG TAB PO SCH (20:11)
[2021-06-17] MEDS: ACETAMINOPHEN TAB 650MG DOSE (2X325MG) PO PRN (20:11)
[2021-06-17 20:19] VITALS: BP 108/60
[2021-06-18] MEDS: IPRATROPIUM 0.5MG/ALBUTEROL 2.5MG INH SOL UD 3ML (DUONEB) NEB SCH ×4 (02:52→19:14)
[2021-06-18] MEDS: ACETAMINOPHEN TAB 650MG DOSE (2X325MG) PO PRN ×2 (03:00→09:10)
[2021-06-18 06:00] VITALS: BP 104/63
[2021-06-18 06:11] LABS: HEMATOCRIT 33.2 % (36.0-47.0); MEAN CORPUSCULAR HEMOGLOBIN 32.2 pg (27.0-33.0); MEAN CORPUSCULAR HGB CONC 35.2 g/dl (32.0-36.5); MEAN CORPUSCULAR VOLUME 91.5 fl (80.0-96.0); PLATELET COUNT, AUTOMATED 201 10^3/uL (150-450); RED BLOOD COUNT 3.63 10^6/uL (4.00-5.40); WHITE BLOOD COUNT 5.4 10^3/uL (4.0-10.0)
[2021-06-18 06:12] LABS: HEMOGLOBIN 11.7 g/dl (12.0-15.5)
[2021-06-18] MEDS: methylPREDNISolone 125MG 2ML VIAL IV SCH ×3 (06:13→21:57)
[2021-06-18 06:23] VITALS: BP 118/64
[2021-06-18 06:25] LABS: BLOOD UREA NITROGEN 8 MG/DL (7-18); CALCIUM LEVEL 8.4 MG/DL (8.8-10.2); CARBON DIOXIDE LEVEL 28 MEQ/L (21-32); CHLORIDE LEVEL 99 MEQ/L (98-107); CREATININE FOR GFR 0.24 MG/DL (0.55-1.30); GLOMERULAR FILTRATION RATE > 60.0 (>45); GLUCOSE, FASTING 182 MG/DL (70-100); POTASSIUM SERUM 3.7 MEQ/L (3.5-5.1); SODIUM LEVEL 130 MEQ/L (136-145)
[2021-06-18] MEDS: SYMBICORT 80/4.5MCG INHALER 6GM INH SCH ×2 (07:38→19:14)
[2021-06-18] MEDS: MONTELUKAST 10 MG TAB PO SCH (09:10)
[2021-06-18] MEDS: ENOXAPARIN 40MG/0.4ML SYRINGE (J1650 PER 10MG) SC SCH (09:11)
[2021-06-18] MEDS: NS 1,000 ML IV SCH ×2 (09:11→19:22)
[2021-06-18] MEDS ORDERED: ISOVUE-370 76% 100ML VIAL As Ordered ONE (10:32)
[2021-06-18] MEDS: NYSTATIN 500,000 U/5 ML SUSP UDC SS SCH ×5 (10:47→20:39)
[2021-06-18] MEDS: guaiFENesin/CODEINE SYRUP 5 ML UDC PO PRN ×2 (10:47→17:15)
[2021-06-18 14:00] VITALS: BP 119/71
[2021-06-18] MEDS: NICOTINE 21MG/24HR 1 EA TRANSDERMAL TD SCH (16:24)
[2021-06-18] MEDS: CETIRIZINE (ZyrTEC) 10 MG TAB PO SCH (20:31)
[2021-06-18 22:00] VITALS: BP 122/78
[2021-06-19] MEDS: RAMELTEON 8 MG TAB (ROZEREM) PO PRN (01:36)
[2021-06-19] MEDS: NS 1,000 ML IV SCH ×2 (01:36→16:54)
[2021-06-19] MEDS: methylPREDNISolone 125MG 2ML VIAL IV SCH ×3 (05:28→22:36)
[2021-06-19 06:09] LABS: HEMATOCRIT 34.2 % (36.0-47.0); MEAN CORPUSCULAR HEMOGLOBIN 32.6 pg (27.0-33.0); MEAN CORPUSCULAR HGB CONC 35.1 g/dl (32.0-36.5); MEAN CORPUSCULAR VOLUME 92.9 fl (80.0-96.0); PLATELET COUNT, AUTOMATED 197 10^3/uL (150-450); RED BLOOD COUNT 3.68 10^6/uL (4.00-5.40); WHITE BLOOD COUNT 6.3 10^3/uL (4.0-10.0)
[2021-06-19 06:26] LABS: BLOOD UREA NITROGEN 6 MG/DL (7-18); CALCIUM LEVEL 8.5 MG/DL (8.8-10.2); CARBON DIOXIDE LEVEL 26 MEQ/L (21-32); CHLORIDE LEVEL 104 MEQ/L (98-107); GLOMERULAR FILTRATION RATE > 60.0 (>45); GLUCOSE, FASTING 142 MG/DL (70-100); POTASSIUM SERUM 3.5 MEQ/L (3.5-5.1); SODIUM LEVEL 135 MEQ/L (136-145)
[2021-06-19 06:52] VITALS: BP 146/87
[2021-06-19] MEDS: IPRATROPIUM 0.5MG/ALBUTEROL 2.5MG INH SOL UD 3ML (DUONEB) NEB SCH ×3 (07:20→19:12)
[2021-06-19] MEDS: SYMBICORT 80/4.5MCG INHALER 6GM INH SCH (07:20)
[2021-06-19 09:00] VITALS: O2SAT 92
[2021-06-19] MEDS: NYSTATIN 500,000 U/5 ML SUSP UDC SS SCH ×4 (09:09→20:06)
[2021-06-19] MEDS: MONTELUKAST 10 MG TAB PO SCH (09:09)
[2021-06-19] MEDS: ENOXAPARIN 40MG/0.4ML SYRINGE (J1650 PER 10MG) SC SCH (09:10)
[2021-06-19] MEDS: NICOTINE 21MG/24HR 1 EA TRANSDERMAL TD SCH (09:10)
[2021-06-19] MEDS: ACETAMINOPHEN TAB 650MG DOSE (2X325MG) PO PRN ×2 (13:47→20:05)
[2021-06-19 14:00] VITALS: BP 124/82
[2021-06-19] MEDS: TIOTROPIUM INHALER/CAPSULE (SPIRIVA) INH SCH (14:47)
[2021-06-19] MEDS: SYMBICORT 160/4.5MCG INHALER 6GM INH SCH (19:12)
[2021-06-19 19:34] VITALS: BP 144/86
[2021-06-19] MEDS: CETIRIZINE (ZyrTEC) 10 MG TAB PO SCH (20:02)
[2021-06-19 20:13] VITALS: O2SAT 93
[2021-06-20] MEDS: RAMELTEON 8 MG TAB (ROZEREM) PO PRN (01:04)
[2021-06-20] MEDS: IPRATROPIUM 0.5MG/ALBUTEROL 2.5MG INH SOL UD 3ML (DUONEB) NEB SCH ×4 (01:22→19:06)
[2021-06-20] MEDS: NS 1,000 ML IV SCH ×2 (01:52→12:09)
[2021-06-20] MEDS: ACETAMINOPHEN TAB 650MG DOSE (2X325MG) PO PRN ×3 (02:10→20:38)
[2021-06-20 04:00] VITALS: BP 134/77
[2021-06-20] MEDS: methylPREDNISolone 125MG 2ML VIAL IV SCH ×2 (05:12→13:01)
[2021-06-20 05:52] LABS: HEMATOCRIT 37.3 % (36.0-47.0); HEMOGLOBIN 13.2 g/dl (12.0-15.5); MEAN CORPUSCULAR HEMOGLOBIN 31.9 pg (27.0-33.0); MEAN CORPUSCULAR HGB CONC 35.4 g/dl (32.0-36.5); MEAN CORPUSCULAR VOLUME 90.1 fl (80.0-96.0); PLATELET COUNT, AUTOMATED 221 10^3/uL (150-450); RED BLOOD COUNT 4.14 10^6/uL (4.00-5.40); WHITE BLOOD COUNT 4.8 10^3/uL (4.0-10.0)
[2021-06-20 06:00] VITALS: BP 134/77
[2021-06-20 06:14] LABS: BLOOD UREA NITROGEN 6 MG/DL (7-18); CALCIUM LEVEL 8.2 MG/DL (8.8-10.2); CARBON DIOXIDE LEVEL 29 MEQ/L (21-32); CHLORIDE LEVEL 100 MEQ/L (98-107); CREATININE FOR GFR 0.33 MG/DL (0.55-1.30); GLOMERULAR FILTRATION RATE > 60.0 (>45); GLUCOSE, FASTING 148 MG/DL (70-100); POTASSIUM SERUM 3.4 MEQ/L (3.5-5.1); SODIUM LEVEL 134 MEQ/L (136-145)
[2021-06-20] MEDS: SYMBICORT 160/4.5MCG INHALER 6GM INH SCH ×2 (07:36→19:06)
[2021-06-20] MEDS: TIOTROPIUM INHALER/CAPSULE (SPIRIVA) INH SCH (07:36)
[2021-06-20] MEDS ORDERED: POTASSIUM CHLORIDE 10MEQ SR TABLET PO ONE (08:00)
[2021-06-20] MEDS: NYSTATIN 500,000 U/5 ML SUSP UDC SS SCH ×4 (08:23→20:34)
[2021-06-20] MEDS: MONTELUKAST 10 MG TAB PO SCH (08:23)
[2021-06-20] MEDS: NICOTINE 21MG/24HR 1 EA TRANSDERMAL TD SCH (08:23)
[2021-06-20] MEDS: ENOXAPARIN 40MG/0.4ML SYRINGE (J1650 PER 10MG) SC SCH (08:23)
[2021-06-20 14:00] VITALS: BP 130/82
[2021-06-20 20:21] VITALS: BP 136/84
[2021-06-20 20:37] VITALS: BP 130/90
[2021-06-20] MEDS: CETIRIZINE (ZyrTEC) 10 MG TAB PO SCH (20:37)
[2021-06-20 20:41] VITALS: BP 130/90
[2021-06-21] MEDS: IPRATROPIUM 0.5MG/ALBUTEROL 2.5MG INH SOL UD 3ML (DUONEB) NEB SCH ×4 (01:10→19:59)
[2021-06-21 05:40] VITALS: BP 124/71
[2021-06-21 05:56] LABS: HEMATOCRIT 39.2 % (36.0-47.0); HEMOGLOBIN 13.7 g/dl (12.0-15.5); MEAN CORPUSCULAR HEMOGLOBIN 31.9 pg (27.0-33.0); MEAN CORPUSCULAR HGB CONC 34.9 g/dl (32.0-36.5); MEAN CORPUSCULAR VOLUME 91.2 fl (80.0-96.0); PLATELET COUNT, AUTOMATED 241 10^3/uL (150-450); WHITE BLOOD COUNT 6.8 10^3/uL (4.0-10.0)
[2021-06-21 06:14] LABS: BLOOD UREA NITROGEN 8 MG/DL (7-18); CALCIUM LEVEL 9.1 MG/DL (8.8-10.2); CARBON DIOXIDE LEVEL 33 MEQ/L (21-32); CHLORIDE LEVEL 98 MEQ/L (98-107); CREATININE FOR GFR 0.31 MG/DL (0.55-1.30); GLOMERULAR FILTRATION RATE > 60.0 (>45); GLUCOSE, FASTING 83 MG/DL (70-100); POTASSIUM SERUM 3.2 MEQ/L (3.5-5.1); SODIUM LEVEL 135 MEQ/L (136-145)
[2021-06-21] MEDS: SYMBICORT 160/4.5MCG INHALER 6GM INH SCH ×2 (07:07→19:59)
[2021-06-21] MEDS: TIOTROPIUM INHALER/CAPSULE (SPIRIVA) INH SCH (07:07)
[2021-06-21] MEDS: NICOTINE 21MG/24HR 1 EA TRANSDERMAL TD SCH (08:48)
[2021-06-21] MEDS: ENOXAPARIN 40MG/0.4ML SYRINGE (J1650 PER 10MG) SC SCH (08:49)
[2021-06-21] MEDS: MONTELUKAST 10 MG TAB PO SCH (08:49)
[2021-06-21] MEDS: NYSTATIN 500,000 U/5 ML SUSP UDC SS SCH ×4 (08:49→21:20)
[2021-06-21] MEDS: POTASSIUM CHLORIDE 10MEQ SR TABLET PO SCH ×2 (08:49→12:00)
[2021-06-21] MEDS: predniSONE 20 MG TAB PO SCH (08:49)
[2021-06-21] MEDS: KCL 10MEQ/100ML SWI (KRUN) 10 MEQ in IV 1 EA IV SCH ×3 (08:50→11:23)
[2021-06-21] MEDS: ACETAMINOPHEN TAB 650MG DOSE (2X325MG) PO PRN (08:58)
[2021-06-21] MEDS ORDERED: PRED10TA2 PO (12:58)
[2021-06-21] MEDS ORDERED: SYMB16INH INH (12:58)
[2021-06-21] MEDS ORDERED: AMOX875T2 PO (12:58)
[2021-06-21] MEDS ORDERED: ALBU83IN INH (12:58)
[2021-06-21] MEDS ORDERED: TIOT18INH INH (12:58)
[2021-06-21] MEDS ORDERED: PROAAER10 INH (12:58)
[2021-06-21] MEDS ORDERED: PRED20TA PO (12:58)
[2021-06-21 14:00] VITALS: BP 150/98
[2021-06-21 15:21] LABS: BLOOD UREA NITROGEN 9 MG/DL (7-18); CALCIUM LEVEL 9.1 MG/DL (8.8-10.2); CARBON DIOXIDE LEVEL 34 MEQ/L (21-32); CHLORIDE LEVEL 90 MEQ/L (98-107); GLOMERULAR FILTRATION RATE > 60.0 (>45); GLUCOSE, FASTING 186 MG/DL (70-100); SODIUM LEVEL 125 MEQ/L (136-145)
[2021-06-21 16:35] LABS: BLOOD UREA NITROGEN 8 MG/DL (7-18); CALCIUM LEVEL 9.5 MG/DL (8.8-10.2); CARBON DIOXIDE LEVEL 35 MEQ/L (21-32); CHLORIDE LEVEL 88 MEQ/L (98-107); CREATININE FOR GFR 0.42 MG/DL (0.55-1.30); GLOMERULAR FILTRATION RATE > 60.0 (>45); GLUCOSE, FASTING 176 MG/DL (70-100); POTASSIUM SERUM 4.2 MEQ/L (3.5-5.1); SODIUM LEVEL 124 MEQ/L (136-145)
[2021-06-21] MEDS ORDERED: NS 1,000 ML IV SCH (18:55)
[2021-06-21 20:13] VITALS: BP 142/82
[2021-06-21] MEDS: SODIUM CHLORIDE 1 GM TAB PO SCH (21:20)
[2021-06-21] MEDS: CETIRIZINE (ZyrTEC) 10 MG TAB PO SCH (21:20)
[2021-06-22] MEDS: RAMELTEON 8 MG TAB (ROZEREM) PO PRN (00:09)
[2021-06-22] MEDS: IPRATROPIUM 0.5MG/ALBUTEROL 2.5MG INH SOL UD 3ML (DUONEB) NEB SCH ×3 (01:07→15:18)
[2021-06-22 05:23] VITALS: BP 131/66
[2021-06-22] MEDS: NYSTATIN 500,000 U/5 ML SUSP UDC SS SCH ×2 (08:31→14:19)
[2021-06-22] MEDS: predniSONE 20 MG TAB PO SCH (08:32)
[2021-06-22] MEDS: ENOXAPARIN 40MG/0.4ML SYRINGE (J1650 PER 10MG) SC SCH (08:32)
[2021-06-22] MEDS: NICOTINE 21MG/24HR 1 EA TRANSDERMAL TD SCH (08:32)
[2021-06-22] MEDS: MONTELUKAST 10 MG TAB PO SCH (08:32)
[2021-06-22] MEDS: SODIUM CHLORIDE 1 GM TAB PO SCH (08:32)
[2021-06-22] MEDS: TIOTROPIUM INHALER/CAPSULE (SPIRIVA) INH SCH (08:44)
[2021-06-22] MEDS: SYMBICORT 160/4.5MCG INHALER 6GM INH SCH (08:44)
[2021-06-22] MEDS ORDERED: CEFDINIR 300 MG CAP (OMNICEF) PO SCH (09:00)
[2021-06-22 09:36] LABS: BASO % 0.1 % (0.0-1.0); EOS % 0.6 % (0.0-3.0); HEMATOCRIT 42.3 % (36.0-47.0); HEMOGLOBIN 14.8 g/dl (12.0-15.5); LYMPH # 1.8 10^3/uL (1.5-5.0); LYMPH % 25.6 % (24.0-44.0); MEAN CORPUSCULAR HEMOGLOBIN 32.3 pg (27.0-33.0); MEAN CORPUSCULAR VOLUME 92.4 fl (80.0-96.0); MONO # 1.1 10^3/uL (0.0-0.8); MONO % 15.2 % (2.0-8.0); NEUTROPHILS # 4.1 10^3/uL (1.5-8.5); NEUTROPHILS % 57.5 % (36.0-66.0); PLATELET COUNT, AUTOMATED 264 10^3/uL (150-450); RED BLOOD COUNT 4.58 10^6/uL (4.00-5.40); WHITE BLOOD COUNT 7.1 10^3/uL (4.0-10.0)
[2021-06-22 10:20] LABS: ALBUMIN 3.2 GM/DL (3.2-5.2); ALT/SGPT 24 U/L (12-78); BILIRUBIN,TOTAL 0.2 MG/DL (0.2-1.0); BLOOD UREA NITROGEN 6 MG/DL (7-18); CALCIUM LEVEL 9.4 MG/DL (8.8-10.2); CARBON DIOXIDE LEVEL 34 MEQ/L (21-32); CHLORIDE LEVEL 95 MEQ/L (98-107); CREATININE FOR GFR 0.35 MG/DL (0.55-1.30); GLOMERULAR FILTRATION RATE > 60.0 (>45); GLUCOSE, FASTING 83 MG/DL (70-100); POTASSIUM SERUM 3.9 MEQ/L (3.5-5.1); SODIUM LEVEL 136 MEQ/L (136-145); TOTAL PROTEIN 6.3 GM/DL (6.4-8.2)
[2021-06-22] MEDS: ACETAMINOPHEN TAB 650MG DOSE (2X325MG) PO PRN (10:25)
[2021-06-22] MEDS ORDERED: CEFUROXIME 500 MG TAB PO SCH (10:30)
[2021-06-22] MEDS ORDERED: ISOVUE-370 76% 100ML VIAL As Ordered ONE (11:33)
[2021-06-22] MEDS ORDERED: CEFU50TA PO ×2 (11:43→14:08)
[2021-06-22 14:00] VITALS: BP_SYST 109; BP_SYST 141; BP_DIAS 66; BP_DIAS 68
== END 2021-06-22 15:35 | disposition home health service (06) | DRG 190 ==
LOC: EDBD 16:49 → M ED 16:49 → M ED INP 20:50 → ENRESERV 21:15 → M MSPAV 22:43
PROVIDERS: ADMIT Family Medicine; ATTEND Family Medicine
DX: J44.1 Chronic obstructive pulmonary disease with (acute) exacerbation (principal); J96.01 Acute respiratory failure with hypoxia; E43 Unspecified severe protein-calorie malnutrition; E87.1 Hypo-osmolality and hyponatremia; Z68.1 Body mass index [BMI] 19.9 or less, adult; R64 Cachexia; I10 Essential (primary) hypertension; F32.A Depression, unspecified; F41.9 Anxiety disorder, unspecified; I25.10 Atherosclerotic heart disease of native coronary artery without angina pectoris; K21.9 Gastro-esophageal reflux disease without esophagitis; Z90.49 Acquired absence of other specified parts of digestive tract; F17.210 Nicotine dependence, cigarettes, uncomplicated; Z79.899 Other long term (current) drug therapy; Z88.2 Allergy status to sulfonamides; R91.1 Solitary pulmonary nodule; J30.9 Allergic rhinitis, unspecified

== ENCOUNTER 2021-07-19 11:09 | Inpatient (IN) | payer MEDICARE, OTHER, MEDICAID ==
[~2021-07-19] VITALS: Ht 154.9 cm; Wt 35.0 kg
[~2021-07-19 11:09] MED LIST changes: +ALBU2.5V10 INH; -ALBU83IN INH; +AMOX875T2 PO; +CEFU50TA PO; +IBUP80TA PO; +SYMB16INH INH; +TIOT18INH INH
[2021-07-19 11:43] LABS: HEMATOCRIT 38.6 % (36.0-47.0); HEMOGLOBIN 13.6 g/dl (12.0-15.5); MEAN CORPUSCULAR HEMOGLOBIN 32.8 pg (27.0-33.0); MEAN CORPUSCULAR HGB CONC 35.2 g/dl (32.0-36.5); PLATELET COUNT, AUTOMATED 239 10^3/uL (150-450); RED BLOOD COUNT 4.15 10^6/uL (4.00-5.40); WHITE BLOOD COUNT 11.6 10^3/uL (4.0-10.0)
[2021-07-19] MEDS ORDERED: IPRATROPIUM 0.5MG/ALBUTEROL 2.5MG INH SOL UD 3ML (DUONEB) NEB PRN (11:45)
[2021-07-19] MEDS ORDERED: methylPREDNISolone 125MG 2ML VIAL IV ONE (11:45)
[2021-07-19] MEDS: COMBIVENT RESPIMAT 100-20MCG INHALER 4GM INH SCH ×3 (11:55→14:19)
[2021-07-19 12:16] LABS: INR 0.9; PROTHROMBIN TIME 12.5 SECONDS (12.7-14.5)
[2021-07-19 12:18] LABS: ATYPICAL LYMPH 1 % (0-5); LYMPHOCYTES 4 % (16-44); NEUTROPHILS 95 % (28-66); PLATELET ESTIMATE NORMAL (NORMAL)
[2021-07-19 12:19] LABS: ALBUMIN 2.9 GM/DL (3.2-5.2); ALT/SGPT 17 U/L (12-78); BILIRUBIN,DIRECT 0.1 MG/DL (0.0-0.2); BILIRUBIN,TOTAL 0.2 MG/DL (0.2-1.0); BLOOD UREA NITROGEN 10 MG/DL (7-18); CARBON DIOXIDE LEVEL 28 MEQ/L (21-32); CHLORIDE LEVEL 100 MEQ/L (98-107); CREATININE FOR GFR 0.44 MG/DL (0.55-1.30); GLOMERULAR FILTRATION RATE > 60.0 (>45); GLUCOSE, FASTING 75 MG/DL (70-100); POTASSIUM SERUM 3.7 MEQ/L (3.5-5.1); SODIUM LEVEL 133 MEQ/L (136-145); TOTAL PROTEIN 6.1 GM/DL (6.4-8.2)
[2021-07-19] MEDS ORDERED: NICO1DIS12 TOP (14:35)
[2021-07-19] MEDS ORDERED: HOME MED LIST COMPLETE! XX SCH (14:40)
[2021-07-19] MEDS ORDERED: MAALOX 30 ML SUSP *UDC PO PRN (14:40)
[2021-07-19] MEDS ORDERED: OMEPRAZOLE 20MG CAP PO PRN (14:40)
[2021-07-19] MEDS ORDERED: MOM 30ML SUSPENSION UDC PO PRN (14:40)
[2021-07-19] MEDS ORDERED: FLUTICASONE PROP 0.05% NASAL SPRAY 16 GM (FLONASE) NARES PRN (14:40)
[2021-07-19] MEDS ORDERED: ALBUTEROL SULFATE 2.5 MG/0.5 ML INH NEB SOLN NEB PRN (14:40)
[2021-07-19 15:40] VITALS: BP 116/81
[2021-07-19 15:54] VITALS: O2SAT 93
[2021-07-19] MEDS: NICOTINE 21MG/24HR 1 EA TRANSDERMAL TOP SCH (16:14)
[2021-07-19] MEDS: ENOXAPARIN 40MG/0.4ML SYRINGE (J1650 PER 10MG) SC SCH (16:15)
[2021-07-19] MEDS: IPRATROPIUM 0.5MG/ALBUTEROL 2.5MG INH SOL UD 3ML (DUONEB) NEB SCH (19:54)
[2021-07-19] MEDS: SYMBICORT 160/4.5MCG INHALER 6GM INH SCH (19:55)
[2021-07-19] MEDS: CETIRIZINE (ZyrTEC) 10 MG TAB PO SCH ×2 (20:04→20:07)
[2021-07-19] MEDS: ACETAMINOPHEN TAB 650MG DOSE (2X325MG) PO PRN (20:05)
[2021-07-19 22:00] VITALS: BP 98/57
[2021-07-19] MEDS: traMADol 50 MG TAB PO PRN (23:47)
[2021-07-20] VITALS (8 sets, daily range): BP systolic 94–111; BP diastolic 63–70; O2SAT 84–93
[2021-07-20] MEDS: IPRATROPIUM 0.5MG/ALBUTEROL 2.5MG INH SOL UD 3ML (DUONEB) NEB SCH ×4 (01:54→19:32)
[2021-07-20] MEDS: guaiFENesin DM LIQ 10ML UD PO PRN ×3 (04:17→15:30)
[2021-07-20 06:10] LABS: HEMATOCRIT 38.8 % (36.0-47.0); HEMOGLOBIN 13.5 g/dl (12.0-15.5); MEAN CORPUSCULAR HEMOGLOBIN 32.3 pg (27.0-33.0); MEAN CORPUSCULAR HGB CONC 34.8 g/dl (32.0-36.5); MEAN CORPUSCULAR VOLUME 92.8 fl (80.0-96.0); PLATELET COUNT, AUTOMATED 264 10^3/uL (150-450); RED BLOOD COUNT 4.18 10^6/uL (4.00-5.40); WHITE BLOOD COUNT 12.2 10^3/uL (4.0-10.0)
[2021-07-20 07:01] LABS: BLOOD UREA NITROGEN 13 MG/DL (7-18); CALCIUM LEVEL 8.5 MG/DL (8.8-10.2); CARBON DIOXIDE LEVEL 27 MEQ/L (21-32); CHLORIDE LEVEL 102 MEQ/L (98-107); CREATININE FOR GFR 0.26 MG/DL (0.55-1.30); GLOMERULAR FILTRATION RATE > 60.0 (>45); GLUCOSE, FASTING 141 MG/DL (70-100); MAGNESIUM LEVEL 1.7 MG/DL (1.8-2.4); SODIUM LEVEL 134 MEQ/L (136-145)
[2021-07-20] MEDS: SYMBICORT 160/4.5MCG INHALER 6GM INH SCH ×2 (07:55→19:32)
[2021-07-20] MEDS: TIOTROPIUM INHALER/CAPSULE (SPIRIVA) INH SCH (07:55)
[2021-07-20] MEDS: predniSONE 20 MG TAB PO SCH (08:35)
[2021-07-20] MEDS: MONTELUKAST 10 MG TAB PO SCH (08:35)
[2021-07-20] MEDS: ENOXAPARIN 40MG/0.4ML SYRINGE (J1650 PER 10MG) SC SCH (08:35)
[2021-07-20] MEDS: NICOTINE 21MG/24HR 1 EA TRANSDERMAL TOP SCH (08:36)
[2021-07-20] MEDS: PERCOCET 5MG/325MG TAB PO PRN ×2 (08:36→15:30)
[2021-07-20] MEDS: MAGIC MOUTHWASH SUSPENSION BTL SS PRN (14:09)
[2021-07-20] MEDS: CETIRIZINE (ZyrTEC) 10 MG TAB PO SCH (21:12)
[2021-07-20] MEDS: ACETAMINOPHEN TAB 650MG DOSE (2X325MG) PO PRN (22:40)
[2021-07-21] MEDS: IPRATROPIUM 0.5MG/ALBUTEROL 2.5MG INH SOL UD 3ML (DUONEB) NEB SCH ×3 (00:53→13:00)
[2021-07-21] MEDS: MAGIC MOUTHWASH SUSPENSION BTL SS PRN ×2 (01:08→09:20)
[2021-07-21] MEDS: traMADol 50 MG TAB PO PRN ×2 (01:08→09:27)
[2021-07-21 05:03] VITALS: O2SAT 97
[2021-07-21 06:00] VITALS: BP 120/77
[2021-07-21 06:05] LABS: HEMATOCRIT 34.7 % (36.0-47.0); HEMOGLOBIN 11.8 g/dl (12.0-15.5); MEAN CORPUSCULAR HEMOGLOBIN 32.4 pg (27.0-33.0); MEAN CORPUSCULAR VOLUME 95.3 fl (80.0-96.0); PLATELET COUNT, AUTOMATED 242 10^3/uL (150-450); RED BLOOD COUNT 3.64 10^6/uL (4.00-5.40); WHITE BLOOD COUNT 7.5 10^3/uL (4.0-10.0)
[2021-07-21 06:53] LABS: BLOOD UREA NITROGEN 9 MG/DL (7-18); CALCIUM LEVEL 8.6 MG/DL (8.8-10.2); CARBON DIOXIDE LEVEL 30 MEQ/L (21-32); CHLORIDE LEVEL 100 MEQ/L (98-107); CREATININE FOR GFR 0.28 MG/DL (0.55-1.30); GLOMERULAR FILTRATION RATE > 60.0 (>45); GLUCOSE, FASTING 76 MG/DL (70-100); MAGNESIUM LEVEL 1.6 MG/DL (1.8-2.4); POTASSIUM SERUM 4.1 MEQ/L (3.5-5.1); SODIUM LEVEL 134 MEQ/L (136-145)
[2021-07-21] MEDS: SYMBICORT 160/4.5MCG INHALER 6GM INH SCH (07:53)
[2021-07-21] MEDS: TIOTROPIUM INHALER/CAPSULE (SPIRIVA) INH SCH (07:54)
[2021-07-21] MEDS ORDERED: MAGNESIUM OXIDE 400MG TAB (MAG-OX) PO ONE (08:00)
[2021-07-21] MEDS: predniSONE 20 MG TAB PO SCH (09:19)
[2021-07-21] MEDS: MONTELUKAST 10 MG TAB PO SCH (09:19)
[2021-07-21] MEDS: ENOXAPARIN 40MG/0.4ML SYRINGE (J1650 PER 10MG) SC SCH (09:19)
[2021-07-21] MEDS: NICOTINE 21MG/24HR 1 EA TRANSDERMAL TOP SCH (09:20)
[2021-07-21] MEDS: guaiFENesin DM LIQ 10ML UD PO PRN (09:22)
[2021-07-21] MEDS ORDERED: PRED20TA PO (12:46)
[2021-07-21 14:00] VITALS: BP 121/75
== END 2021-07-21 16:30 | disposition home health service (06) | DRG 190 ==
LOC: M ED 11:09 → EDBD 11:09 → M ED INP 14:39 → ENRESERV 15:03 → M MSPAV 15:41
PROVIDERS: ADMIT Family Medicine; ATTEND Family Medicine
DX: J44.1 Chronic obstructive pulmonary disease with (acute) exacerbation (principal); E43 Unspecified severe protein-calorie malnutrition; Z68.1 Body mass index [BMI] 19.9 or less, adult; R64 Cachexia; J96.11 Chronic respiratory failure with hypoxia; I25.10 Atherosclerotic heart disease of native coronary artery without angina pectoris; J44.9 Chronic obstructive pulmonary disease, unspecified; I10 Essential (primary) hypertension; F41.9 Anxiety disorder, unspecified; J30.9 Allergic rhinitis, unspecified; F32.A Depression, unspecified; F17.210 Nicotine dependence, cigarettes, uncomplicated; B34.8 Other viral infections of unspecified site; Z79.899 Other long term (current) drug therapy; Z88.2 Allergy status to sulfonamides; Z99.81 Dependence on supplemental oxygen

== ENCOUNTER → 2021-07-25 | Outpatient (CLI) | payer MEDICARE, OTHER, MEDICAID ==
[~2021-07-25] MED LIST changes: +NICO1DIS12 TOP
== END ==
LOC: M PLAIMG 15:27
PROVIDERS: ATTEND Nurse Practitioner Adult Health
DX: M79.675 Pain in left toe(s) (principal)

== ENCOUNTER → 2021-11-02 | Outpatient (CLI) | payer MEDICARE, MEDICAID ==
[~2021-11-02] MED LIST changes: +LEVO1TAB39 PO; -LEVO500T4 PO
[2021-11-02 17:46] LABS: ALBUMIN 4.1 GM/DL (3.2-5.2); ALT/SGPT 24 U/L (12-78); BILIRUBIN,TOTAL 0.2 MG/DL (0.2-1.0); BLOOD UREA NITROGEN 21 MG/DL (7-18); CALCIUM LEVEL 9.8 MG/DL (8.8-10.2); CARBON DIOXIDE LEVEL 24 MEQ/L (21-32); CHLORIDE LEVEL 98 MEQ/L (98-107); CREATININE FOR GFR 0.55 MG/DL (0.55-1.30); GLOMERULAR FILTRATION RATE > 60.0 (>45); GLUCOSE, FASTING 85 MG/DL (70-100); POTASSIUM SERUM 4.6 MEQ/L (3.5-5.1); SODIUM LEVEL 129 MEQ/L (136-145); TOTAL PROTEIN 7.9 GM/DL (6.4-8.2)
[2021-11-02 18:22] LABS: TOTAL 25(OH) VITAMIN D 68.6 NG/ML (30.0-100.0)
== END ==
LOC: M PLALAB 15:31
PROVIDERS: ATTEND Nurse Practitioner Adult Health
DX: E55.9 Vitamin D deficiency, unspecified (principal); Z86.39 Personal history of other endocrine, nutritional and metabolic disease; Z79.899 Other long term (current) drug therapy

== ENCOUNTER → 2021-11-17 | Outpatient (CLI) | payer MEDICAID, MEDICARE | LOC: M RAD 14:57 | PROVIDERS: ATTEND Internal Medicine Pulmonary Disease | DX: R91.1 Solitary pulmonary nodule (principal) ==

== ENCOUNTER → 2022-02-13 | Outpatient (CLI) | payer OTHER | LOC: M LAB 13:21 | PROVIDERS: ATTEND Internal Medicine Pulmonary Disease | DX: R91.8 Other nonspecific abnormal finding of lung field (principal) ==

== ENCOUNTER → 2022-02-22 | Outpatient (CLI) | payer MEDICARE, OTHER, SELFPAY | LOC: M RAD 14:07 | PROVIDERS: ATTEND Internal Medicine Pulmonary Disease | DX: R91.8 Other nonspecific abnormal finding of lung field (principal) ==

== ENCOUNTER → 2022-04-11 | Outpatient (CLI) | payer OTHER, MEDICAID ==
[2022-04-11 17:22] LABS: ALBUMIN 4.1 G/DL (3.2-5.2); ALKALINE PHOSPHATASE 88 U/L (46-116); ALT/SGPT 17 U/L (7.0-40); AST/SGOT 22 U/L (<34); BILIRUBIN,TOTAL 0.3 MG/DL (0.3-1.2); BLOOD UREA NITROGEN 11 MG/DL (9-23); CALCIUM LEVEL 9.6 MG/DL (8.3-10.6); CARBON DIOXIDE LEVEL 27 MMOL/L (20-31); CHLORIDE LEVEL 100 MMOL/L (98-107); CHOLESTEROL LEVEL 207 MG/DL (<200); CHOLESTEROL RISK RATIO 2.12 (<5); CREATININE FOR GFR 0.55 MG/DL (0.55-1.30); GLOMERULAR FILTRATION RATE > 60.0 (>45); GLUCOSE, FASTING 96 MG/DL (74-106); HDL CHOLESTEROL 97.6 MG/DL (>40); LDL CHOLESTEROL 87.4 MG/DL (<100); NON-HDL-C 109 MG/DL; POTASSIUM SERUM 4.7 MMOL/L (3.5-5.1); SODIUM LEVEL 137 MMOL/L (136-145); TOTAL PROTEIN 6.5 G/DL (5.7-8.2); TRIGLYCERIDES LEVEL 110 MG/DL (<150)
[2022-04-11 17:24] LABS: THYROID STIMULATING HORMONE 1.937 uIU/ML (0.55-4.78); TOTAL 25(OH) VITAMIN D 67.2 NG/ML (20.0-100.0)
[2022-04-11 17:31] LABS: HEMATOCRIT 38.7 % (36.0-47.0); HEMOGLOBIN 12.7 g/dl (12.0-15.5); MEAN CORPUSCULAR HGB CONC 32.8 g/dl (32.0-36.5); MEAN CORPUSCULAR VOLUME 100.5 fl (80.0-96.0); PLATELET COUNT, AUTOMATED 294 10^3/uL (150-450); RED BLOOD COUNT 3.85 10^6/uL (4.00-5.40)
== END ==
LOC: M PLALAB 15:27
PROVIDERS: ATTEND Nurse Practitioner Adult Health
DX: E55.9 Vitamin D deficiency, unspecified (principal); E78.2 Mixed hyperlipidemia; Z86.39 Personal history of other endocrine, nutritional and metabolic disease; Z79.899 Other long term (current) drug therapy

== ENCOUNTER → 2022-06-21 | Outpatient (CLI) | payer OTHER, MEDICAID ==
[~2022-06-21] MED LIST changes: +FLUT50SP17 NARES; -FLUTISP NARES; -KETO0.02 OU; +KETO5DRO33 OU
== END ==
LOC: M PAIN 13:00
PROVIDERS: ATTEND Nurse Practitioner Family
DX: M54.50 Low back pain, unspecified (principal); J44.9 Chronic obstructive pulmonary disease, unspecified; I10 Essential (primary) hypertension; F32.A Depression, unspecified; F41.9 Anxiety disorder, unspecified; Z87.891 Personal history of nicotine dependence; Z79.899 Other long term (current) drug therapy; Z88.1 Allergy status to other antibiotic agents

== ENCOUNTER → 2022-08-15 | Outpatient (CLI) | payer OTHER, MEDICAID | LOC: M RAD 13:14 | PROVIDERS: ATTEND Nurse Practitioner Family | DX: M54.50 Low back pain, unspecified (principal) ==

== ENCOUNTER → 2022-09-10 | Outpatient (CLI) | payer OTHER, MEDICAID | LOC: M RAD 12:21 | PROVIDERS: ATTEND Internal Medicine Pulmonary Disease | DX: R91.1 Solitary pulmonary nodule (principal) ==

== ENCOUNTER → 2022-09-20 | Outpatient (CLI) | payer OTHER, MEDICAID | LOC: M PAIN 14:15 | PROVIDERS: ATTEND Nurse Practitioner Family | DX: M54.50 Low back pain, unspecified (principal); G89.29 Other chronic pain; J44.9 Chronic obstructive pulmonary disease, unspecified; I25.2 Old myocardial infarction; I10 Essential (primary) hypertension; F32.A Depression, unspecified; F41.9 Anxiety disorder, unspecified; F17.200 Nicotine dependence, unspecified, uncomplicated; Z79.899 Other long term (current) drug therapy; Z88.1 Allergy status to other antibiotic agents ==

== ENCOUNTER → 2022-10-17 | Outpatient (REF) | payer OTHER, MEDICAID ==
[2022-10-17 18:22] LABS: HEMATOCRIT 42.6 % (36.0-47.0); HEMOGLOBIN 13.9 g/dl (12.0-15.5); MEAN CORPUSCULAR HEMOGLOBIN 31.2 pg (27.0-33.0); MEAN CORPUSCULAR HGB CONC 32.6 g/dl (32.0-36.5); MEAN CORPUSCULAR VOLUME 95.5 fl (80.0-96.0); PLATELET COUNT, AUTOMATED 311 10^3/uL (150-450); RED BLOOD COUNT 4.46 10^6/uL (4.00-5.40)
[2022-10-17 18:52] LABS: ALBUMIN 3.7 G/DL (3.2-5.2); ALKALINE PHOSPHATASE 77 U/L (46-116); ALT/SGPT 18 U/L (7.0-40); AST/SGOT 15 U/L (<34); BILIRUBIN,TOTAL 0.3 MG/DL (0.3-1.2); BLOOD UREA NITROGEN 15 MG/DL (9-23); CALCIUM LEVEL 9.8 MG/DL (8.3-10.6); CARBON DIOXIDE LEVEL 28 MMOL/L (20-31); CHLORIDE LEVEL 102 MMOL/L (98-107); CREATININE FOR GFR 0.43 MG/DL (0.55-1.30); GLOMERULAR FILTRATION RATE > 60.0 (>45); GLUCOSE, FASTING 109 MG/DL (74-106); POTASSIUM SERUM 4.3 MMOL/L (3.5-5.1); SODIUM LEVEL 136 MMOL/L (136-145); TOTAL PROTEIN 7.1 G/DL (5.7-8.2)
[2022-10-17 18:55] LABS: FERRITIN 57.2 NG/ML (7.3-270.7)
== END ==
LOC: M SFHCPLAZ 17:22
PROVIDERS: ATTEND Nurse Practitioner Adult Health
DX: I10 Essential (primary) hypertension (principal); Z86.39 Personal history of other endocrine, nutritional and metabolic disease

== ENCOUNTER → 2022-10-22 | Outpatient (CLI) | payer OTHER, MEDICAID | LOC: M PLARAD 15:25 | PROVIDERS: ATTEND Internal Medicine Pulmonary Disease | DX: R91.1 Solitary pulmonary nodule (principal) | CPT/HCPCS: 78815; A9552 ==

== ENCOUNTER → 2022-11-20 | Outpatient (CLI) | payer OTHER, MEDICAID | LOC: M PAIN 14:45 | PROVIDERS: ATTEND Nurse Practitioner Family | DX: M54.50 Low back pain, unspecified (principal); G89.29 Other chronic pain; J44.9 Chronic obstructive pulmonary disease, unspecified; I10 Essential (primary) hypertension; F32.A Depression, unspecified; F41.9 Anxiety disorder, unspecified; F17.200 Nicotine dependence, unspecified, uncomplicated; Z79.899 Other long term (current) drug therapy; Z88.1 Allergy status to other antibiotic agents; Z88.2 Allergy status to sulfonamides ==

== ENCOUNTER → 2023-03-15 | Outpatient (CLI) | payer OTHER, MEDICAID ==
[~2023-03-15] MED LIST changes: -FLUT50SP17 NARES; +FLUTISP NARES
== END ==
LOC: M PAIN 15:30
PROVIDERS: ATTEND Nurse Practitioner Family
DX: M54.50 Low back pain, unspecified (principal); G89.29 Other chronic pain; I10 Essential (primary) hypertension; J44.9 Chronic obstructive pulmonary disease, unspecified; F41.9 Anxiety disorder, unspecified; F32.A Depression, unspecified; Z87.891 Personal history of nicotine dependence; Z79.899 Other long term (current) drug therapy; Z88.1 Allergy status to other antibiotic agents

== ENCOUNTER → 2023-04-08 | Outpatient (CLI) | payer OTHER, MEDICAID | LOC: M PLAIMG 12:51 | PROVIDERS: ATTEND Internal Medicine Pulmonary Disease | DX: R91.8 Other nonspecific abnormal finding of lung field (principal) ==

== ENCOUNTER → 2023-05-08 | Outpatient (CLI) | payer OTHER, MEDICAID ==
[~2023-05-08] MED LIST changes: +IBUP-1022 PO
[2023-05-08 18:08] LABS: HEMATOCRIT 40.5 % (36.0-47.0); HEMOGLOBIN 13.5 g/dl (12.0-15.5); MEAN CORPUSCULAR HEMOGLOBIN 31.3 pg (27.0-33.0); MEAN CORPUSCULAR HGB CONC 33.3 g/dl (32.0-36.5); PLATELET COUNT, AUTOMATED 355 10^3/uL (150-450); RED BLOOD COUNT 4.31 10^6/uL (4.00-5.40); WHITE BLOOD COUNT 14.1 10^3/uL (4.0-10.0)
[2023-05-08 18:33] LABS: ALBUMIN 3.9 G/DL (3.2-5.2); ALKALINE PHOSPHATASE 73 U/L (46-116); ALT/SGPT 14 U/L (7.0-40); AST/SGOT 18 U/L (<34); BILIRUBIN,TOTAL 0.5 MG/DL (0.3-1.2); BLOOD UREA NITROGEN 16 MG/DL (9-23); CALCIUM LEVEL 9.8 MG/DL (8.3-10.6); CARBON DIOXIDE LEVEL 29 MMOL/L (20-31); CHLORIDE LEVEL 96 MMOL/L (98-107); CHOLESTEROL LEVEL 199 MG/DL (<200); CHOLESTEROL RISK RATIO 2.18 (<5); CREATININE FOR GFR 0.36 MG/DL (0.55-1.30); GLOMERULAR FILTRATION RATE > 60.0 (>45); GLUCOSE, FASTING 96 MG/DL (74-106); HDL CHOLESTEROL 91.2 MG/DL (>40); LDL CHOLESTEROL 87.6 MG/DL (<100); NON-HDL-C 107.8 MG/DL; POTASSIUM SERUM 4.5 MMOL/L (3.5-5.1); SODIUM LEVEL 130 MMOL/L (136-145); TOTAL PROTEIN 7.1 G/DL (5.7-8.2); TRIGLYCERIDES LEVEL 101 MG/DL (<150)
[2023-05-08 18:35] LABS: FERRITIN 66.8 NG/ML (7.3-270.7); THYROID STIMULATING HORMONE 2.048 uIU/ML (0.55-4.78)
== END ==
LOC: M PLALAB 16:06
PROVIDERS: ATTEND Nurse Practitioner Adult Health
DX: Z00.00 Encounter for general adult medical examination without abnormal findings (principal); I10 Essential (primary) hypertension; E78.2 Mixed hyperlipidemia; Z86.39 Personal history of other endocrine, nutritional and metabolic disease

== ENCOUNTER 2023-05-15 07:07 | Day surgery (SDC) | payer OTHER, MEDICAID ==
[~2023-05-15] VITALS: Ht 152.4 cm; Wt 42.0 kg
[2023-05-15] MEDS ORDERED: ONDANSETRON 4MG 2ML VIAL As Ordered ONE (07:47)
[2023-05-15] MEDS ORDERED: fentaNYL 100 MCG/2 ML INJECTION As Ordered ONE (07:47)
[2023-05-15] MEDS ORDERED: LIDOCAINE 2% 100MG/5ML SDV (FOR ANES.) As Ordered ONE (07:47)
[2023-05-15] MEDS ORDERED: PHENYLephrine 500MCG 5ML (100MCG/ML) SYRINGE As Ordered ONE (07:47)
[2023-05-15] MEDS ORDERED: ROCURONIUM BROMIDE 50MG/5ML VIAL As Ordered ONE (07:47)
[2023-05-15] MEDS ORDERED: SUGAMMADEX SODIUM 500 MG/5 ML VIAL (BRIDION) As Ordered ONE (07:47)
[2023-05-15] MEDS ORDERED: propofoL 200 MG/20 ML VIAL As Ordered ONE (07:47)
[2023-05-15] MEDS ORDERED: MIDAZOLAM INJ 2MG/2ML VIAL As Ordered ONE (07:47)
[2023-05-15] MEDS ORDERED: ePHEDrine SULFATE 25 MG/5 ML(5MG/ML) SYRINGE As Ordered ONE (07:47)
[2023-05-15] MEDS: LR 1,000 ML IV SCH (08:01)
[2023-05-15] MEDS: CETACAINE SPRAY 5GM As Ordered ONE (08:50)
[2023-05-15] MEDS: EPINEPHrine 1MG/10ML SYRINGE 1.5IN As Ordered ONE (09:00)
[2023-05-15] MEDS ORDERED: ACETAMINOPHEN 1000MG 100ML IV BAG As Ordered ONE (09:02)
[2023-05-15] MEDS ORDERED: fentaNYL 100 MCG/2 ML INJECTION IV PRN (09:25)
[2023-05-15] MEDS ORDERED: ONDANSETRON 4MG 2ML VIAL IV PRN (09:25)
[2023-05-15] MEDS ORDERED: HYDROMORPHONE HCL 0.5 MG/ 0.5 ML SYRINGE IV PRN (09:25)
[2023-05-15] MEDS ORDERED: LR 1,000 ML IV SCH (09:25)
[2023-05-15] MEDS ORDERED: oxyCODONE 5MG TAB PO PRN (09:25)
[2023-05-15] MEDS: THROMBIN 5,000 UNITS VIAL As Ordered ONE (09:36)
[2023-05-15 10:12] VITALS: BP 109/54; TEMP 98.6; O2SAT 91
== END 2023-05-15 10:36 | disposition home or self-care (01) ==
LOC: M SDC 07:07
PROVIDERS: ATTEND Internal Medicine Pulmonary Disease
DX: C34.11 Malignant neoplasm of upper lobe, right bronchus or lung (principal); J44.89 Other specified chronic obstructive pulmonary disease; I25.2 Old myocardial infarction; J30.1 Allergic rhinitis due to pollen; Z88.2 Allergy status to sulfonamides; Z79.899 Other long term (current) drug therapy; F17.210 Nicotine dependence, cigarettes, uncomplicated; F10.90 Alcohol use, unspecified, uncomplicated
CPT/HCPCS: 31626; 31627; 31628; 31654; 71045; 76000; 88305; 93005; J0131; J0171; J1100; J2250; J2371; J2405; J3010

== ENCOUNTER → 2023-06-11 | Outpatient (CLI) | payer OTHER, MEDICAID ==
[~2023-06-11] MED LIST changes: +AZIT-12 PO
== END ==
LOC: M ONCR 13:06
PROVIDERS: ATTEND General Practice
DX: C34.11 Malignant neoplasm of upper lobe, right bronchus or lung (principal); J44.1 Chronic obstructive pulmonary disease with (acute) exacerbation; F17.218 Nicotine dependence, cigarettes, with other nicotine-induced disorders; Z72.89 Other problems related to lifestyle; Z71.2 Person consulting for explanation of examination or test findings; Z79.51 Long term (current) use of inhaled steroids; Z79.1 Long term (current) use of non-steroidal anti-inflammatories (NSAID); Z79.899 Other long term (current) drug therapy; Z88.1 Allergy status to other antibiotic agents; Z88.2 Allergy status to sulfonamides; J30.89 Other allergic rhinitis; Z98.51 Tubal ligation status

== ENCOUNTER 2023-06-28 13:51 | Outpatient (RCR) | payer OTHER, MEDICAID | END 2023-07-12 | LOC: M ONCR 13:51 | PROVIDERS: ATTEND General Practice | DX: Z51.0 Encounter for antineoplastic radiation therapy (principal); C34.11 Malignant neoplasm of upper lobe, right bronchus or lung ==

== ENCOUNTER 2023-07-26 10:41 | Outpatient (RCR) | payer OTHER, MEDICAID | END 2023-08-11 | LOC: M ONCR 10:41 | PROVIDERS: ATTEND General Practice | DX: Z51.0 Encounter for antineoplastic radiation therapy (principal); C34.11 Malignant neoplasm of upper lobe, right bronchus or lung ==

== ENCOUNTER → 2023-08-06 | Outpatient (REF) | payer OTHER, MEDICAID | LOC: M SFHCPLAZ 17:14 | PROVIDERS: ATTEND Nurse Practitioner Adult Health | DX: R09.81 Nasal congestion (principal) ==

== ENCOUNTER → 2023-10-10 | Outpatient (CLI) | payer OTHER, MEDICAID ==
[2023-10-10 12:18] LABS: ALBUMIN 4.1 G/DL (3.2-5.2); ALKALINE PHOSPHATASE 74 U/L (46-116); ALT/SGPT 17 U/L (7.0-40); AST/SGOT 24 U/L (<34); BILIRUBIN,TOTAL 0.5 MG/DL (0.3-1.2); BLOOD UREA NITROGEN 5 MG/DL (9-23); CALCIUM LEVEL 10.1 MG/DL (8.3-10.6); CARBON DIOXIDE LEVEL 27 MMOL/L (20-31); CHLORIDE LEVEL 96 MMOL/L (98-107); CREATININE FOR GFR 0.32 MG/DL (0.55-1.30); GLOMERULAR FILTRATION RATE > 60.0 (>45); GLUCOSE, FASTING 88 MG/DL (74-106); POTASSIUM SERUM 4.5 MMOL/L (3.5-5.1); SODIUM LEVEL 130 MMOL/L (136-145); TOTAL PROTEIN 7.2 G/DL (5.7-8.2)
== END ==
LOC: M ONCM 11:17
PROVIDERS: ATTEND General Practice
DX: C34.11 Malignant neoplasm of upper lobe, right bronchus or lung (principal)

== ENCOUNTER → 2023-10-16 | Outpatient (CLI) | payer OTHER, MEDICAID ==
[~2023-10-16] MED LIST changes: +ISOVUE-370 76% 100ML VIAL As Ordered ONE
== END ==
LOC: M RAD 13:42
PROVIDERS: ATTEND General Practice
DX: C34.90 Malignant neoplasm of unspecified part of unspecified bronchus or lung (principal)
CPT/HCPCS: 71260; Q9967

== ENCOUNTER → 2023-10-29 | Outpatient (CLI) | payer OTHER, MEDICAID ==
[~2023-10-29] MED LIST changes: -ISOVUE-370 76% 100ML VIAL As Ordered ONE
== END ==
LOC: M ONCR 15:43
PROVIDERS: ATTEND General Practice
DX: C34.11 Malignant neoplasm of upper lobe, right bronchus or lung (principal); F17.210 Nicotine dependence, cigarettes, uncomplicated; J30.2 Other seasonal allergic rhinitis; Z88.1 Allergy status to other antibiotic agents; Z88.2 Allergy status to sulfonamides; Z79.899 Other long term (current) drug therapy; Z92.3 Personal history of irradiation

== ENCOUNTER → 2023-11-20 | Outpatient (CLI) | payer OTHER, MEDICAID ==
[2023-11-20 15:06] LABS: HEMATOCRIT 39.3 % (36.0-47.0); HEMOGLOBIN 13.6 g/dl (12.0-15.5); MEAN CORPUSCULAR HEMOGLOBIN 32.1 pg (27.0-33.0); MEAN CORPUSCULAR HGB CONC 34.6 g/dl (32.0-36.5); MEAN CORPUSCULAR VOLUME 92.7 fl (80.0-96.0); PLATELET COUNT, AUTOMATED 288 10^3/uL (150-450); RED BLOOD COUNT 4.24 10^6/uL (4.00-5.40); WHITE BLOOD COUNT 9.2 10^3/uL (4.0-10.0)
[2023-11-20 15:35] LABS: ALKALINE PHOSPHATASE 85 U/L (46-116); ALT/SGPT 18 U/L (7.0-40); AST/SGOT 15 U/L (<34); BILIRUBIN,TOTAL 0.3 MG/DL (0.3-1.2); BLOOD UREA NITROGEN 6 MG/DL (9-23); CALCIUM LEVEL 9.9 MG/DL (8.3-10.6); CARBON DIOXIDE LEVEL 28 MMOL/L (20-31); CHLORIDE LEVEL 93 MMOL/L (98-107); CHOLESTEROL LEVEL 195 MG/DL (<200); CHOLESTEROL RISK RATIO 2.14 (<5); CREATININE FOR GFR 0.32 MG/DL (0.55-1.30); GLOMERULAR FILTRATION RATE > 60.0 (>45); GLUCOSE, FASTING 79 MG/DL (74-106); HDL CHOLESTEROL 91.1 MG/DL (>40); LDL CHOLESTEROL 85.5 MG/DL (<100); NON-HDL-C 103.9 MG/DL; POTASSIUM SERUM 4.2 MMOL/L (3.5-5.1); SODIUM LEVEL 128 MMOL/L (136-145); TOTAL PROTEIN 7.1 G/DL (5.7-8.2); TRIGLYCERIDES LEVEL 92 MG/DL (<150)
[2023-11-20 15:37] LABS: FERRITIN 80.4 NG/ML (7.3-270.7)
== END ==
LOC: M LAB 14:19
PROVIDERS: ATTEND Nurse Practitioner Adult Health
DX: Z86.39 Personal history of other endocrine, nutritional and metabolic disease (principal); E78.00 Pure hypercholesterolemia, unspecified

== ENCOUNTER → 2024-04-21 | Outpatient (CLI) | payer OTHER, MEDICAID | LOC: M RAD 10:08 | PROVIDERS: ATTEND General Practice | DX: C34.11 Malignant neoplasm of upper lobe, right bronchus or lung (principal) ==

== ENCOUNTER → 2024-11-13 | Outpatient (CLI) | payer OTHER, MEDICAID ==
[~2024-11-13] MED LIST changes: -IBUP-1022 PO; +IBUP600T42 PO
[2024-11-13 13:29] LABS: PLATELET COUNT, AUTOMATED 307 10^3/uL (150-450)
[2024-11-13 13:57] LABS: ALT/SGPT 18 U/L (7.0-40); AST/SGOT 24 U/L (<34); CALCIUM LEVEL 9.3 MG/DL (8.3-10.6); CARBON DIOXIDE LEVEL 27 MMOL/L (20-31); CHLORIDE LEVEL 92 MMOL/L (98-107); CHOLESTEROL LEVEL 195 MG/DL (<200); CHOLESTEROL RISK RATIO 1.96 (<5); CREATININE FOR GFR 0.35 MG/DL (0.55-1.30); GLOMERULAR FILTRATION RATE > 90.0 (>39); LDL CHOLESTEROL 87.3 MG/DL (<100); NON-HDL-C 95.9 MG/DL; POTASSIUM SERUM 4.3 MMOL/L (3.5-5.1); SODIUM LEVEL 126 MMOL/L (136-145); TRIGLYCERIDES LEVEL 43 MG/DL (<150)
[2024-11-13 13:58] LABS: TOTAL 25(OH) VITAMIN D 128.9 NG/ML (20.0-100.0)
== END ==
LOC: M LAB 12:50
PROVIDERS: ATTEND Nurse Practitioner Adult Health
DX: Z00.00 Encounter for general adult medical examination without abnormal findings (principal); E55.9 Vitamin D deficiency, unspecified; E78.2 Mixed hyperlipidemia